=== PATIENT | male | born 1995 ===

== ENCOUNTER 2017-05-09 12:29 | Inpatient (IN) | payer OTHER ==
[2017-05-09] MEDS ORDERED: Sodium Chloride 0.9% 1,000 ML IV ONE (13:42)
[2017-05-09] MEDS ORDERED: Sodium Chloride 0.9% 1,000 ML ONE (14:02)
--- NOTE | 2017-05-09 14:03 | C.PDOC ---
History Of Present Illness 22 y/o male presents to ED c/o RUQ abdominal pain, nausea, and multiple episodes of vomiting since this morning. Pt reports last episode of vomiting had blood tinged vomitous. Denies diarrhea, constipation, dysuria, hematuria, fever, chest pain, or shortness of breath. Reports that 3 days ago he was started on antibiotics for pneumonia (augmentin) based on recent cough. Time Seen by Provider: 05/09/17 13:29 Chief Complaint (Nursing): GI Problem History Per: Patient History/Exam Limitations: no limitations Onset/Duration Of Symptoms: Hrs Current Symptoms Are (Timing): Still Present Location Of Pain/Discomfort: RUQ Radiation Of Pain To:: None Quality Of Discomfort: "Pain" Associated Symptoms: Nausea, Vomiting. denies: Diarrhea, Loss Of Appetite, Constipation, Urinary Symptoms Additional History Per: Patient Past Medical History Reviewed: Historical Data, Nursing Documentation, Vital Signs Vital Signs: Last Vital Signs Temp 99.3 F 05/09/17 12:34 Pulse 105 H 05/09/17 12:34 Resp 20 05/09/17 12:34 BP 115/77 05/09/17 12:34 Pulse Ox 96 05/09/17 16:29 Family History: States: Unknown Family Hx - Social History Hx Alcohol Use: No Hx Substance Use: No - Immunization History Hx Tetanus Toxoid Vaccination: No Hx Influenza Vaccination: No Hx Pneumococcal Vaccination: No Review Of Systems Except As Marked, All Systems Reviewed And Found Negative. Constitutional: Negative for: Fever, Chills Cardiovascular: Negative for: Chest Pain, Palpitations Respiratory: Positive for: Cough. Negative for: Shortness of Breath Gastrointestinal: Positive for: Nausea, Vomiting, Abdominal Pain. Negative for : Diarrhea, Constipation Physical Exam - Physical Exam Appears: Well, Non-toxic, No Acute Distress Skin: Normal Color, Warm, Dry Head: Atraumatic, Normacephalic Eye(s): bilateral: Normal Inspection Oral Mucosa: Moist Chest: Symmetrical Cardiovascular: Rhythm Regular, No Murmur Respiratory: No Rales, No Rhonchi, No Wheezing, Other (mildly decreased on R) Gastrointestinal/Abdominal: Soft, Tenderness (RUQ), No Guarding, No Rebound Back: No CVA Tenderness Extremity: Normal ROM, No Deformity Neurological/Psych: Oriented x3, Normal Speech ED Course And Treatment - Laboratory Results Result Diagrams: 05/09/17 13:53 05/09/17 13:53 O2 Sat by Pulse Oximetry: 96 Pulse Ox Interpretation: Normal Medical Decision Making Medical Decision Making: Blood work, UA, Abd & Pelvis CT, Cxray. Pt was given Pepcid, Toradol, Zofran, and IV fluids. FINDINGS: LOWER THORAX: There is multifocal consolidation in the right lower lobe. The visualized left lung is clear. LIVER: Normal in size with homogeneous enhancement. No gross lesion or ductal dilatation. GALLBLADDER AND BILE DUCTS: No calcified gallstones. PANCREAS: Normal in size and appearance. No gross lesion or ductal dilatation. SPLEEN: Normal in size and appearance. ADRENALS: No discrete nodule. KIDNEYS AND URETERS: Normal in size with homogeneous enhancement. No hydronephrosis. No solid mass. VASCULATURE: No aortic aneurysm. BOWEL: The small bowel loops are normal in caliber. There is moderate amount of stool in the colon. No bowel dilatation or obstruction. APPENDIX: Normal appendix. PERITONEUM: No free fluid. No free air. LYMPH NODES: No enlarged lymph nodes. BLADDER: Well distended and normal in appearance. REPRODUCTIVE: Unremarkable. BONES: No acute fracture. Within normal limits for the patient's age. OTHER FINDINGS: None. IMPRESSION: 1. No acute abdominal or pelvic abnormality. 2. Constipation. No evidence of bowel obstruction. 3. Multifocal right lower lobe pneumonia. PA and lateral chest radiographs are recommended for further evaluation. Cxray LUNGS: There is right upper lobe infiltrate with a central cavitary lesion. Followup CT scan recommended. Changes questionable patchy early infiltrate changes in the right lower lobe lung field and left perihilar/infrahilar regions. PLEURA: No significant pleural effusion identified. No pneumothorax apparent. CARDIOVASCULAR: Heart size within range of normal. OSSEOUS STRUCTURES: No mild scoliotic deformity of the thoracolumbar spine. VISUALIZED UPPER ABDOMEN: Normal. OTHER FINDINGS: None. IMPRESSION: Right upper lobe infiltrate with central cavitary lesion. There also appears to be some patchy early infiltrate. CT scan of the chest recommended for further evaluation. Findings discussed with emergency room physician Dr. Roca Approximately 4:30 p.m. with written down and read back verification. Patient immediately placed on droplet isolation. On reevaluation, patient reports an episode of hemoptysis in ED and shows me which is bloody with clots. Reports last travel outside [place] was 6 years ago. Reports that he was born in [facility]. Cannot identify if he has been evalauted for TB. WBC WNL. Lactate WNL. Quantiferon gold, ppd, sputum cultures, and rapid hiv ordered. Blood cx and antibiotics ordered for community acquired pneumonia coverage. Admit to hospitalist. Disposition - Disposition Disposition: HOSPITALIZED Disposition Time: 16:17 Condition: FAIR - Clinical Impression Clinical Impression: Cavitary lesion of lung, Hemoptysis, Pneumonia - Scribe Statement The provider has reviewed the documentation as recorded by the Anabell Ngo All medical record entries made by the Anabell were at my direction and personally dictated by me. I have reviewed the chart and agree that the record accurately reflects my personal performance of the history, physical exam, medical decision making, and the department course for this patient. I have also personally directed, reviewed, and agree with the discharge instructions and disposition.
[2017-05-09 14:06] LABS: INR 1.4; PROTHROMBIN TIME 15.3 SECONDS (9.7-12.2)
[2017-05-09 14:09] LABS: ALT/SGPT 45 U/L (21-72); AST/SGOT 27 U/L (17-59); BLOOD UREA NITROGEN 12 mg/dL (9-20); CALCIUM 8.4 mg/dl (8.6-10.4); GFR AFRICAN-AMERICAN > 60; GFR NON-AFRICAN AMERICAN > 60; LIPASE 25 U/L (23-300); MAGNESIUM 1.7 mg/dL (1.6-2.3)
[2017-05-09 14:14] LABS: ALB/GLOB RATIO 0.9 (1.0-2.1)
[2017-05-09 14:19] LABS: VENOUS BLOOD GAS PCO2 47 mmHg (40-60); VENOUS BLOOD GAS PO2 27 mm/Hg (30-55); VENOUS BLOOD PH 7.38 (7.32-7.43)
[2017-05-09 14:20] LABS: URINE BILIRUBIN NEGATIVE (NEGATIVE); URINE BLOOD NEGATIVE (NEGATIVE); URINE CLARITY Clear (Clear); URINE COLOR Yellow (YELLOW); URINE GLUCOSE (UA) NORMAL (Normal); URINE LEUKOCYTE ESTERASE NEG Leu/uL (Negative); URINE NITRATE NEGATIVE (NEGATIVE); URINE PROTEIN NEGATIVE (NEGATIVE)
[2017-05-09 14:25] LABS: BASO % 0.5 % (0.0-2.0); EOS # 0.1 K/uL (0.0-0.7); EOS % 0.9 % (0.0-4.0); HEMOGLOBIN 14.8 g/dL (12.0-18.0); LYMPH # 0.7 K/uL (1.0-4.3); LYMPH % 8.1 % (20.0-40.0); MEAN CELL VOLUME 85.5 fL (80.0-94.0); MEAN CORPUSCULAR HEMOGLOBIN 28.4 pg (27.0-31.0); MEAN CORPUSCULAR HGB CONC 33.2 g/dL (33.0-37.0); MEAN PLATELET VOLUME 7.5 fL (7.2-11.7); MONO # 0.9 K/uL (0.0-0.8); MONO % 10.1 % (0.0-10.0); NEUT # 7.2 K/uL (1.8-7.0); NEUT % 80.4 % (50.0-75.0); NRBC % 0.1 % (0.0-2.0); PLATELET COUNT 288 K/uL (130-400); RBC 5.21 Mil/uL (4.40-5.90); RED CELL DISTRIBUTION WIDTH 12.2 % (11.5-14.5)
[2017-05-09] MEDS ORDERED: Iodixanol 320 MG/ML 100 ML BOTTLE IV ONE (14:47)
[2017-05-09 14:56] LABS: EOSINOPHIL 1 % (0-4); LYMPHOCYTE 9 % (20-40); MONOCYTE 7 % (0-10); NEUTROPHIL 83 % (50-75); TOTAL CELLS COUNTED 100
[2017-05-09 14:57] LABS: PLATELET ESTIMATE NORMAL (NORMAL)
--- NOTE | 2017-05-09 15:43 | CT ---
PROCEDURE: CT Abdomen and Pelvis with contrast HISTORY: Abdominal pain and vomiting COMPARISON: None. TECHNIQUE: CT scan of the abdomen and pelvis was performed after intravenous administration of contrast. Oral contrast was not administered. Coronal and sagittal reformatted images were obtained. Contrast dose: 100 mL Visipaque 320 Radiation dose: Total exam DLP = 250.49 mGy-cm. This CT exam was performed using one or more of the following dose reduction techniques: Automated exposure control, adjustment of the mA and/or kV according to patient size, and/or use of iterative reconstruction technique. FINDINGS: LOWER THORAX: There is multifocal consolidation in the right lower lobe. The visualized left lung is clear. LIVER: Normal in size with homogeneous enhancement. No gross lesion or ductal dilatation. GALLBLADDER AND BILE DUCTS: No calcified gallstones. PANCREAS: Normal in size and appearance. No gross lesion or ductal dilatation. SPLEEN: Normal in size and appearance. ADRENALS: No discrete nodule. KIDNEYS AND URETERS: Normal in size with homogeneous enhancement. No hydronephrosis. No solid mass. VASCULATURE: No aortic aneurysm. BOWEL: The small bowel loops are normal in caliber. There is moderate amount of stool in the colon. No bowel dilatation or obstruction. APPENDIX: Normal appendix. PERITONEUM: No free fluid. No free air. LYMPH NODES: No enlarged lymph nodes. BLADDER: Well distended and normal in appearance. REPRODUCTIVE: Unremarkable. BONES: No acute fracture. Within normal limits for the patient's age. OTHER FINDINGS: None. IMPRESSION: 1. No acute abdominal or pelvic abnormality. 2. Constipation. No evidence of bowel obstruction. 3. Multifocal right lower lobe pneumonia. PA and lateral chest radiographs are recommended for further evaluation.
[2017-05-09] MEDS ORDERED: Azithromycin 500 MG in Sodium Chloride 0.9% 250 ML IVPB STA (16:06)
[2017-05-09] MEDS ORDERED: Tuberculin 5 Units/0.1 ml Inj ID STA (16:14)
--- NOTE | 2017-05-09 16:29 | RAD ---
HISTORY: pna seen on ct, recommended by radiologist COMPARISON: No prior. TECHNIQUE: Chest PA and lateral FINDINGS: LUNGS: There is right upper lobe infiltrate with a central cavitary lesion. Followup CT scan recommended. Changes questionable patchy early infiltrate changes in the right lower lobe lung field and left perihilar/infrahilar regions. PLEURA: No significant pleural effusion identified. No pneumothorax apparent. CARDIOVASCULAR: Heart size within range of normal. OSSEOUS STRUCTURES: No mild scoliotic deformity of the thoracolumbar spine. VISUALIZED UPPER ABDOMEN: Normal. OTHER FINDINGS: None. IMPRESSION: Right upper lobe infiltrate with central cavitary lesion. There also appears to be some patchy early infiltrate. CT scan of the chest recommended for further evaluation. Findings discussed with emergency room physician Dr. Roca Approximately 4:30 p.m. with written down and read back verification.
[2017-05-09] MEDS ORDERED: cefTRIAXone IV 1 gm in Dextros 50 ML IVPB ONE (16:30)
--- NOTE | 2017-05-09 17:30 | CP.PCM.HP ---
<Lennie WhittenChris - Last Filed: 05/09/17 19:00> History of Present Illness - History of Present Illness History of Present Illness: CC: abdominal pain, blood tinged vomit HPI: Patient is a 22 year old male with no past medical history, who presents to the ED with complaints of right upper quadrant pain and vomiting. Patient reports having 4 episodes of blood tinged vomit and right upper quadrant pain worse with cough for one day. Patient also states he has had a cough and chest pain (worse with coughing/deep respiration) for the past 15 days for which he saw his PMD, Dr. Nova, 3 days ago. Patient was given an unspecified antibiotic and pain killer, which did not help his symptoms. Patient reports he has noticed about 10lbs weight loss and right mid back pain over the last 15 days. Patient denies recent travel and sick contacts. Patient states his roommates have not recently been sick, had similar symptoms or recently traveled. Patient currently admits to fevers, palpitations, and back pain. Patient denies having chest pain, shortness of breath, abdominal pain, nausea, leg pain/swelling, and dysuria at this time. 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 absent: Fatigue, Headache, Lethargy, Weakness - EENT Eyes: absent: Change in Vision Nose/Mouth/Throat: absent: Dysphagia, Sore Throat - Cardiovascular Cardiovascular: Chest Pain (with cough and deep respirations), Palpitations. absent: Dyspnea, Lightheadedness - Respiratory Respiratory: Cough, Hemoptysis, Pain with Coughing (chest and RUQ abdomen ( below ribs)). absent: Dyspnea - Gastrointestinal Gastrointestinal: Abdominal Pain (RUQ), Hematemesis, Vomiting (4 episodes). absent: Constipation, Diarrhea, Nausea - Genitourinary Genitourinary: absent: Dysuria, Hematuria - Musculoskeletal Musculoskeletal: Back Pain (Right mid back, 15 days) - Integumentary Integumentary: absent: Rash - Neurological Neurological: absent: Dizziness, Headaches, Weakness - Endocrine Endocrine: Palpitations Past Patient History - Past Social History Smoking Status: Never Smoked - PSYCHIATRIC Hx Substance Use: No - SURGICAL HISTORY Hx Surgeries: No - ANESTHESIA Hx Anesthesia: No Hx Anesthesia Reactions: No Meds Allergies/Adverse Reactions: Allergies Allergy/AdvReac Type Severity Reaction Status Date / Time No Known Allergies Allergy Unverified 05/09/17 12:36 Physical Exam - Constitutional Appears: No Acute Distress - Head Exam Head Exam: ATRAUMATIC, NORMAL INSPECTION - Eye Exam Eye Exam: EOMI, Normal appearance, PERRL - ENT Exam ENT Exam: Mucous Membranes Moist - Respiratory Exam Respiratory Exam: Decreased Breath Sounds (R>L), NORMAL BREATHING PATTERN. absent: Rales, Rhonchi, Wheezes, Respiratory Distress - Cardiovascular Exam Cardiovascular Exam: REGULAR RHYTHM, +S1, +S2 - GI/Abdominal Exam GI & Abdominal Exam: Normal Bowel Sounds, Soft, Tenderness (mild, Right middle quadrant). absent: Distended, Firm, Guarding, Mass - Extremities Exam Extremities exam: Positive for: normal inspection, pedal pulses present. Negative for: pedal edema, tenderness Additional comments: PPD placed on left forearm - Neurological Exam Neurological exam: Alert, Oriented x3 - Psychiatric Exam Psychiatric exam: Normal Affect, Normal Mood - Skin Skin Exam: Dry, Intact, Normal Color, Warm Results - Vital Signs Recent Vital Signs: Last Vital Signs Temp 98.2 F 05/09/17 17:00 Pulse 84 05/09/17 17:00 Resp 18 05/09/17 17:00 BP 102/63 05/09/17 17:00 Pulse Ox 98 05/09/17 17:00 - Labs Result Diagrams: 05/09/17 13:53 05/09/17 13:53 Labs: Laboratory Results - last 24 hr 05/09/17 05/09/17 05/09/17 13:53 13:53 13:53 WBC 9.0 RBC 5.21 Hgb 14.8 Hct 44.5 MCV 85.5 MCH 28.4 MCHC 33.2 RDW 12.2 Plt Count 288 MPV 7.5 Neut % (Auto) 80.4 H Lymph % (Auto) 8.1 L [place] % (Auto) 10.1 H Eos % (Auto) 0.9 Baso % (Auto) 0.5 Neut # 7.2 H Lymph # 0.7 L [place] # 0.9 H Eos # 0.1 Baso # 0.0 Neutrophils % (Manual) 83 H Lymphocytes % (Manual) 9 L Monocytes % (Manual) 7 Eosinophils % (Manual) 1 Platelet Estimate Normal RBC Morphology Normal PT 15.3 H INR 1.4 APTT 31 pO2 VBG pH VBG pCO2 VBG HCO3 VBG Total CO2 VBG O2 Sat (Calc) VBG Base Excess VBG Potassium Glucose Lactate Sodium 135 Potassium 4.1 Chloride 98 Carbon Dioxide 32 H Anion Gap 9 L BUN 12 Creatinine 0.6 L Est GFR ( Amer) > 60 Est GFR (Non-Af Amer) > 60 Random Glucose 100 Calcium 8.4 L Phosphorus 3.8 Magnesium 1.7 Total Bilirubin 0.9 AST 27 ALT 45 Alkaline Phosphatase 86 Total Protein 8.5 H Albumin 4.0 Globulin 4.6 H Albumin/Globulin Ratio 0.9 L Lipase 25 Venous Blood Potassium Urine Color Urine Clarity Urine pH Ur Specific [place] Urine Protein Urine Glucose (UA) Urine Ketones Urine Blood Urine Nitrate Urine Bilirubin Urine Urobilinogen Ur Leukocyte Esterase Urine WBC (Auto) Urine RBC (Auto) 05/09/17 05/09/17 13:53 14:16 WBC RBC Hgb Hct MCV MCH MCHC RDW Plt Count MPV Neut % (Auto) Lymph % (Auto) [place] % (Auto) Eos % (Auto) Baso % (Auto) Neut # Lymph # [place] # Eos # Baso # Neutrophils % (Manual) Lymphocytes % (Manual) Monocytes % (Manual) Eosinophils % (Manual) Platelet Estimate RBC Morphology PT INR APTT pO2 27 L VBG pH 7.38 VBG pCO2 47 VBG HCO3 25.2 VBG Total CO2 29.2 H VBG O2 Sat (Calc) 61.1 VBG Base Excess 2.0 VBG Potassium 3.6 Glucose 95 Lactate 0.9 Sodium 136.0 Potassium Chloride 103.0 Carbon Dioxide Anion Gap BUN Creatinine Est GFR ( Amer) Est GFR (Non-Af Amer) Random Glucose Calcium Phosphorus Magnesium Total Bilirubin AST ALT Alkaline Phosphatase Total Protein Albumin Globulin Albumin/Globulin Ratio Lipase Venous Blood Potassium 3.6 Urine Color Yellow Urine Clarity Clear Urine pH 5.0 Ur Specific [place] 1.024 Urine Protein Negative Urine Glucose (UA) Normal Urine Ketones 1+ H Urine Blood Negative Urine Nitrate Negative Urine Bilirubin Negative Urine Urobilinogen 4.0 Ur Leukocyte Esterase Neg Urine WBC (Auto) 2 Urine RBC (Auto) 2 Assessment & Plan (1) Cavitary lesion of lung Assessment and Plan: Right upper lobe cavitary lesion * Likely secondary to TB * Placed on Airborne/Droplet Precautions * Chest xray: Right upper lobe infiltrate with central cavitary lesion; also appears to be some patchy early infiltrate. * Abdomen/Pelvis CT: No acute abdominal or pelvic abnormality; Constipation; No evidence of bowel obstruction; Multifocal right lower lobe pneumonia. * ID consulted, Dr. Espinoza, help appreciated * Pulmonology consulted, Dr. Pham, help appreciated * Gold Quantiferon: f/u results * PPD [place on left forearm]: f/u results * AFB cx and gram stainx7: f/u results * please enforce the following directions each morning to orthopaedic technologist: mucomyst + albuterol nebulizer treatment 30 minutes prior to sputum collection every morning. * AFB nucleic acid amplification: f/u results * handwritten order given to nurse on 5T * Sputum cx: f/u results * Blood cx: f/u results * Hepatitis panel: f/u results * f/u influenza, strep, legionella, mycoplasma * HIV1&2 screening: negative Medications: * Rocephin 1gm IV Q24h and Azithromycin 500mg IV Q24hr for infiltrate, likely pneumonia * Florastor 250mg PO daily Status: Acute (2) Prophylactic measure Assessment and Plan: SCDs; DVT risk score- 0, no anticoagulation needed at this time Pepcid 20mg PO daily Regular diet Morning labs: CBC w/diff, CMP, Mg, Phos, TSH, Free T4 Airborne/Droplet Precautions Status: Acute <Nik Ngo - Last Filed: 05/09/17 19:52> Results - Vital Signs Recent Vital Signs: Last Vital Signs Temp 99.1 F 05/09/17 17:38 Pulse 83 05/09/17 17:38 Resp 16 05/09/17 18:13 BP 103/64 05/09/17 17:38 Pulse Ox 99 05/09/17 17:38 - Labs Result Diagrams: 05/09/17 13:53 05/09/17 13:53 Labs: Laboratory Results - last 24 hr 05/09/17 05/09/17 05/09/17 13:53 13:53 13:53 WBC 9.0 RBC 5.21 Hgb 14.8 Hct 44.5 MCV 85.5 MCH 28.4 MCHC 33.2 RDW 12.2 Plt Count 288 MPV 7.5 Neut % (Auto) 80.4 H Lymph % (Auto) 8.1 L [place] % (Auto) 10.1 H Eos % (Auto) 0.9 Baso % (Auto) 0.5 Neut # 7.2 H Lymph # 0.7 L [place] # 0.9 H Eos # 0.1 Baso # 0.0 Neutrophils % (Manual) 83 H Lymphocytes % (Manual) 9 L Monocytes % (Manual) 7 Eosinophils % (Manual) 1 Platelet Estimate Normal RBC Morphology Normal PT 15.3 H INR 1.4 APTT 31 pO2 VBG pH VBG pCO2 VBG HCO3 VBG Total CO2 VBG O2 Sat (Calc) VBG Base Excess VBG Potassium Glucose Lactate Sodium 135 Potassium 4.1 Chloride 98 Carbon Dioxide 32 H Anion Gap 9 L BUN 12 Creatinine 0.6 L Est GFR ( Amer) > 60 Est GFR (Non-Af Amer) > 60 Random Glucose 100 Calcium 8.4 L Phosphorus 3.8 Magnesium 1.7 Total Bilirubin 0.9 AST 27 ALT 45 Alkaline Phosphatase 86 Total Protein 8.5 H Albumin 4.0 Globulin 4.6 H Albumin/Globulin Ratio 0.9 L Lipase 25 Venous Blood Potassium Urine Color Urine Clarity Urine pH Ur Specific [place] Urine Protein Urine Glucose (UA) Urine Ketones Urine Blood Urine Nitrate Urine Bilirubin Urine Urobilinogen Ur Leukocyte Esterase Urine WBC (Auto) Urine RBC (Auto) HIV 1&2 Antibody Screen 05/09/17 05/09/17 05/09/17 13:53 14:16 17:05 WBC RBC Hgb Hct MCV MCH MCHC RDW Plt Count MPV Neut % (Auto) Lymph % (Auto) [place] % (Auto) Eos % (Auto) Baso % (Auto) Neut # Lymph # [place] # Eos # Baso # Neutrophils % (Manual) Lymphocytes % (Manual) Monocytes % (Manual) Eosinophils % (Manual) Platelet Estimate RBC Morphology PT INR APTT pO2 27 L VBG pH 7.38 VBG pCO2 47 VBG HCO3 25.2 VBG Total CO2 29.2 H VBG O2 Sat (Calc) 61.1 VBG Base Excess 2.0 VBG Potassium 3.6 Glucose 95 Lactate 0.9 Sodium 136.0 Potassium Chloride 103.0 Carbon Dioxide Anion Gap BUN Creatinine Est GFR ( Amer) Est GFR (Non-Af Amer) Random Glucose Calcium Phosphorus Magnesium Total Bilirubin AST ALT Alkaline Phosphatase Total Protein Albumin Globulin Albumin/Globulin Ratio Lipase Venous Blood Potassium 3.6 Urine Color Yellow Urine Clarity Clear Urine pH 5.0 Ur Specific [place] 1.024 Urine Protein Negative Urine Glucose (UA) Normal Urine Ketones 1+ H Urine Blood Negative Urine Nitrate Negative Urine Bilirubin Negative Urine Urobilinogen 4.0 Ur Leukocyte Esterase Neg Urine WBC (Auto) 2 Urine RBC (Auto) 2 HIV 1&2 Antibody Screen Negative Attending/Attestation - Attestation I have personally seen and examined this patient.: Yes I have fully participated in the care of the patient.: Yes I have reviewed all pertinent clinical information: Yes Notes (Text): 05/09/17 19:51 Patient was seen and examined by me at 6 PM 05/09/17 555 P. History, Physical, Assessment and Plan, and all Orders were thoroughly gone over with the Resident. Nik Ngo D.O.
--- NOTE | 2017-05-09 19:55 | CP.PCM.CON ---
History of Present Illness - History of Present Illness History of Present Illness: nausea and vomiting by history with probable aspiration and development of cavitary pneumonia, r/o lung abscess after review of CXR will obtain CT Chest agree with work up for TB If review of CT Chest reveals lung abscess then would consult CT Surgery. Add anaerobic coverage Review of Systems - Constitutional Constitutional: Anorexia - Respiratory Respiratory: Cough, Hemoptysis Past Patient History - Past Medical History & Family History Past Medical History?: No - Past Social History Smoking Status: Never Smoked - CARDIAC Hx Cardiac Disorders: No - PULMONARY Hx Respiratory Disorders: No - NEUROLOGICAL Hx Neurological Disorder: No - HEENT Hx HEENT Problems: No - RENAL Hx Chronic Kidney Disease: No - ENDOCRINE/METABOLIC Hx Endocrine Disorders: No - HEMATOLOGICAL/ONCOLOGICAL Hx Blood Disorders: No - INTEGUMENTARY Hx Dermatological Problems: No - MUSCULOSKELETAL/RHEUMATOLOGICAL Hx Musculoskeletal Disorders: No Hx Falls: No - GASTROINTESTINAL Hx Gastrointestinal Disorders: No - GENITOURINARY/GYNECOLOGICAL Hx Genitourinary Disorders: No - PSYCHIATRIC Hx Substance Use: No - SURGICAL HISTORY Hx Surgeries: No - ANESTHESIA Hx Anesthesia: No Hx Anesthesia Reactions: No Meds Allergies/Adverse Reactions: Allergies Allergy/AdvReac Type Severity Reaction Status Date / Time No Known Allergies Allergy Unverified 05/09/17 12:36 - Medications Medications: Current Medications Acetaminophen (Tylenol 325mg Tab) 650 mg PO Q6 PRN PRN Reason: Pain, Mild (1-3) Famotidine (Pepcid) 20 mg PO DAILY [facility] Azithromycin 500 mg/ Sodium (Chloride) 250 mls @ 250 mls/hr IVPB DAILY [facility] Ceftriaxone Sodium 1 gm/ (Sodium Chloride) 100 mls @ 100 mls/hr IVPB DAILY [facility] Saccharomyces Boulardii (Florastor) 250 mg PO DAILY [facility] Physical Exam - Constitutional Appears: No Acute Distress - Head Exam Head Exam: ATRAUMATIC, NORMOCEPHALIC - Eye Exam Eye Exam: Normal appearance - ENT Exam ENT Exam: Mucous Membranes Moist - Respiratory Exam Respiratory Exam: Decreased Breath Sounds, Rales, Rhonchi - Cardiovascular Exam Cardiovascular Exam: REGULAR RHYTHM, +S1, +S2 - GI/Abdominal Exam GI & Abdominal Exam: Normal Bowel Sounds - Rectal Exam Rectal Exam: Deferred - Neurological Exam Neurological exam: Alert, Oriented x3 - Psychiatric Exam Psychiatric exam: Normal Affect, Normal Mood - Skin Skin Exam: Intact Results - Vital Signs Recent Vital Signs: Last Vital Signs Temp 99.1 F 05/09/17 17:38 Pulse 83 05/09/17 17:38 Resp 16 05/09/17 18:13 BP 103/64 05/09/17 17:38 Pulse Ox 99 05/09/17 17:38 - Labs Result Diagrams: 05/12/17 07:30 05/12/17 07:30 Labs: Laboratory Results - last 24 hr 05/09/17 05/09/17 05/09/17 13:53 13:53 13:53 WBC 9.0 RBC 5.21 Hgb 14.8 Hct 44.5 MCV 85.5 MCH 28.4 MCHC 33.2 RDW 12.2 Plt Count 288 MPV 7.5 Neut % (Auto) 80.4 H Lymph % (Auto) 8.1 L [place] % (Auto) 10.1 H Eos % (Auto) 0.9 Baso % (Auto) 0.5 Neut # 7.2 H Lymph # 0.7 L [place] # 0.9 H Eos # 0.1 Baso # 0.0 Neutrophils % (Manual) 83 H Lymphocytes % (Manual) 9 L Monocytes % (Manual) 7 Eosinophils % (Manual) 1 Platelet Estimate Normal RBC Morphology Normal PT 15.3 H INR 1.4 APTT 31 pO2 VBG pH VBG pCO2 VBG HCO3 VBG Total CO2 VBG O2 Sat (Calc) VBG Base Excess VBG Potassium Glucose Lactate Sodium 135 Potassium 4.1 Chloride 98 Carbon Dioxide 32 H Anion Gap 9 L BUN 12 Creatinine 0.6 L Est GFR ( Amer) > 60 Est GFR (Non-Af Amer) > 60 Random Glucose 100 Calcium 8.4 L Phosphorus 3.8 Magnesium 1.7 Total Bilirubin 0.9 AST 27 ALT 45 Alkaline Phosphatase 86 Total Protein 8.5 H Albumin 4.0 Globulin 4.6 H Albumin/Globulin Ratio 0.9 L Lipase 25 Venous Blood Potassium Urine Color Urine Clarity Urine pH Ur Specific [place] Urine Protein Urine Glucose (UA) Urine Ketones Urine Blood Urine Nitrate Urine Bilirubin Urine Urobilinogen Ur Leukocyte Esterase Urine WBC (Auto) Urine RBC (Auto) HIV 1&2 Antibody Screen 05/09/17 05/09/17 05/09/17 13:53 14:16 17:05 WBC RBC Hgb Hct MCV MCH MCHC RDW Plt Count MPV Neut % (Auto) Lymph % (Auto) [place] % (Auto) Eos % (Auto) Baso % (Auto) Neut # Lymph # [place] # Eos # Baso # Neutrophils % (Manual) Lymphocytes % (Manual) Monocytes % (Manual) Eosinophils % (Manual) Platelet Estimate RBC Morphology PT INR APTT pO2 27 L VBG pH 7.38 VBG pCO2 47 VBG HCO3 25.2 VBG Total CO2 29.2 H VBG O2 Sat (Calc) 61.1 VBG Base Excess 2.0 VBG Potassium 3.6 Glucose 95 Lactate 0.9 Sodium 136.0 Potassium Chloride 103.0 Carbon Dioxide Anion Gap BUN Creatinine Est GFR ( Amer) Est GFR (Non-Af Amer) Random Glucose Calcium Phosphorus Magnesium Total Bilirubin AST ALT Alkaline Phosphatase Total Protein Albumin Globulin Albumin/Globulin Ratio Lipase Venous Blood Potassium 3.6 Urine Color Yellow Urine Clarity Clear Urine pH 5.0 Ur Specific [place] 1.024 Urine Protein Negative Urine Glucose (UA) Normal Urine Ketones 1+ H Urine Blood Negative Urine Nitrate Negative Urine Bilirubin Negative Urine Urobilinogen 4.0 Ur Leukocyte Esterase Neg Urine WBC (Auto) 2 Urine RBC (Auto) 2 HIV 1&2 Antibody Screen Negative Assessment & Plan (1) Cavitary pneumonia Status: Acute Comment: tb work up in progress (2) Lung abscess Status: Suspected Comment: add clinda
[2017-05-09 20:49] LABS: HEPATITIS B SURFACE AG NEGATIVE (NEGATIVE)
[2017-05-09 20:55] LABS: HEPATITIS A IGM NEGATIVE (NEGATIVE); HEPATITIS B CORE AB Negative (NEGATIVE)
[2017-05-09 21:07] LABS: HEPATITIS C ANTIBODY Negative (NEGATIVE)
[2017-05-10] MEDS ORDERED: Albuterol 0.083% Inhal Sol (2.5 mg/3 mL) UD INH PRN (06:00)
[2017-05-10] MEDS ORDERED: Acetylcysteine 20% Inhal Soln (4ml) INH PRN (06:00)
[2017-05-10 08:20] LABS: BASO # 0.1 K/uL (0.0-0.2); BASO % 0.5 % (0.0-2.0); EOS # 0.1 K/uL (0.0-0.7); EOS % 0.6 % (0.0-4.0); LYMPH # 0.5 K/uL (1.0-4.3); LYMPH % 4.8 % (20.0-40.0); MEAN CELL VOLUME 84.7 fL (80.0-94.0); MEAN CORPUSCULAR HEMOGLOBIN 28.9 pg (27.0-31.0); MEAN CORPUSCULAR HGB CONC 34.1 g/dL (33.0-37.0); MEAN PLATELET VOLUME 7.7 fL (7.2-11.7); MONO # 0.8 K/uL (0.0-0.8); MONO % 6.9 % (0.0-10.0); NEUT # 9.5 K/uL (1.8-7.0); NEUT % 87.2 % (50.0-75.0); PLATELET COUNT 289 K/uL (130-400); RBC 4.85 Mil/uL (4.40-5.90); RED CELL DISTRIBUTION WIDTH 12.3 % (11.5-14.5); WHITE BLOOD COUNT 10.9 K/uL (4.8-10.8)
[2017-05-10 08:44] LABS: ALB/GLOB RATIO 1.2 (1.0-2.1); ALBUMIN 3.6 g/dL (3.5-5.0); ALT/SGPT 45 U/L (21-72); AST/SGOT 25 U/L (17-59); BLOOD UREA NITROGEN 12 mg/dL (9-20); CALCIUM 7.9 mg/dl (8.6-10.4); GFR AFRICAN-AMERICAN > 60; GFR NON-AFRICAN AMERICAN > 60; MAGNESIUM 1.7 mg/dL (1.6-2.3)
[2017-05-10 09:31] LABS: EOSINOPHIL 1 % (0-4); LYMPHOCYTE 6 % (20-40); MONOCYTE 3 % (0-10); NEUTROPHIL 90 % (50-75); PLATELET ESTIMATE NORMAL (NORMAL); TOTAL CELLS COUNTED 100
[2017-05-10] MEDS: Saccharomyces Boulardi 250 mg Cap PO SCH (09:58)
[2017-05-10] MEDS ORDERED: Azithromycin 500 MG in Sodium Chloride 0.9% 250 ML IVPB SCH (10:00)
--- NOTE | 2017-05-10 10:16 | CT ---
CT chest History: Cavitary pneumonia. Comparison: 05/09/2017 Technique: Multiple contiguous axial images were performed through the chest without the use of intravenous contrast. Subsequently, sagittal and coronal reformatted images were obtained. This CT exam was performed using one or more of the following dose reduction techniques: Automated exposure control, adjustment of the mA and/or kV according to patient size, and/or use of iterative reconstruction technique. Findings: Large area of dense consolidation seen throughout a large portion of the mid to posterior aspect of the right upper lobe with associated prominent air bronchograms. In addition, at the superior aspect of the consolidation, there are large areas of central cavitation measuring up to 2.8 and 1.5 centimeters. This is concerning for a cavitary pneumonia. Additional etiologies not excluded. Continued interval imaging follow-up is recommended if clinically indicated. Additional prominent areas of scattered consolidative changes as well as scattered areas of tree-in-bud opacities seen within the right middle and right lower lobes. More focal consolidative changes seen within posterior and medial aspects of the right lower lobe. These are concerning for acute infectious and or inflammatory changes such as a multifocal pneumonia. Continued interval follow-up is recommended. 1 centimeter focal area of nodular consolidation within the lateral aspect the left lung apex on series 3, image 28. Additional scattered areas of consolidative changes seen within the mid to inferior aspect of the left upper lobe measuring up to 1 centimeters on series 3, image 60 and up to 2.1 centimeters on series 3, image 60. Additional smaller areas of nodular consolidation more inferiorly within the left upper lobe. These are also concerning for acute infectious and or inflammatory changes such as a multifocal pneumonia. Clinical correlation. Trachea thru central airways are patent. No significant axillary adenopathy. Thyroid gland is preserved. Shotty pre-vascular lymph nodes measure up to 1 centimeter. Limited evaluation for hilar adenopathy without contrast. Left paratracheal lymph nodes measure up to 1.2 centimeters. No pleural or pericardial effusion. Degenerative changes in the spine. Fecal retention in the colon. Impression: 1. Large area of dense consolidation seen throughout a large portion of the mid to posterior aspect of the right upper lobe with associated prominent air bronchograms. In addition, at the superior aspect of the consolidation, there are large areas of central cavitation measuring up to 2.8 and 1.5 centimeters. This is concerning for a cavitary pneumonia. Additional etiologies not excluded. Continued interval imaging follow-up is recommended if clinically indicated. 2. Additional prominent areas of scattered consolidative changes as well as scattered areas of tree-in-bud opacities seen within the right middle and right lower lobes. More focal consolidative changes seen within posterior and medial aspects of the right lower lobe. These are concerning for acute infectious and or inflammatory changes such as a multifocal pneumonia. Continued interval follow-up is recommended. 3. 1 centimeter focal area of nodular consolidation within the lateral aspect the left lung apex on series 3, image 28. Additional scattered areas of consolidative changes seen within the mid to inferior aspect of the left upper lobe measuring up to 1 centimeters on series 3, image 60 and up to 2.1 centimeters on series 3, image 60. Additional smaller areas of nodular consolidation more inferiorly within the left upper lobe. These are also concerning for acute infectious and or inflammatory changes such as a multifocal pneumonia. Clinical correlation. 4. Left paratracheal lymph nodes measure up to 1.2 centimeters.
--- NOTE | 2017-05-10 10:21 | CP.PCM.PN ---
<Merari Torrez - Last Filed: 05/10/17 19:49> Subjective - Date & Time of Evaluation Date of Evaluation: 05/10/17 Time of Evaluation: 10:24 - Subjective Subjective: Progress note Patient seen and examined at bedside. Patient had a fever overnight of 102.9. Tylenol was given. Patient states he's still coughing blood with sputum, but is not as bad as yesterday. Patient states he felt fever overnight. Patient denies chest pain, shortness of breath, abdominal pain, nausea, difficulty walking, dysuria, constipation, diarrhea. Objective - Vital Signs/Intake and Output Vital Signs (last 24 hours): Temp Pulse Resp BP Pulse Ox 99.4 F 111 H 20 107/64 90 L 05/10/17 08:05 05/10/17 07:45 05/10/17 07:45 05/10/17 07:45 05/10/17 07:45 Intake and Output: 05/10/17 05/10/17 06:59 18:59 Intake Total 120 Output Total 60 Balance 60 - Medications Medications: Current Medications Acetaminophen (Tylenol 325mg Tab) 650 mg PO Q6 PRN PRN Reason: Fever >100.4 F Last Admin: 05/10/17 07:05 Dose: 650 mg Acetylcysteine (Acetylcysteine 20%) 4 ml INH RQD PRN Albuterol Sulfate (Albuterol 0.083% Inhal Tanesha (2.5 Mg/3 Ml) Ud) 2.5 mg INH RQD PRN Famotidine (Pepcid) 20 mg PO DAILY [facility] Azithromycin 500 mg/ Sodium (Chloride) 250 mls @ 250 mls/hr IVPB DAILY [facility] Ceftriaxone Sodium 1 gm/ (Sodium Chloride) 100 mls @ 100 mls/hr IVPB DAILY [facility] Saccharomyces Boulardii (Florastor) 250 mg PO DAILY [facility] Last Admin: 05/10/17 09:58 Dose: 250 mg - Labs Labs: 05/10/17 08:00 05/10/17 08:00 PT 15.3 SECONDS (9.7-12.2) H 05/09/17 13:53 INR 1.4 05/09/17 13:53 APTT 31 SECONDS (21-34) 05/09/17 13:53 - Constitutional Appears: Non-toxic, No Acute Distress - Head Exam Head Exam: NORMAL INSPECTION - Eye Exam Eye Exam: EOMI, Normal appearance Pupil Exam: NORMAL ACCOMODATION - ENT Exam ENT Exam: Mucous Membranes Moist, Normal Exam - Neck Exam Neck Exam: Full ROM. absent: Tenderness - Respiratory Exam Respiratory Exam: NORMAL BREATHING PATTERN. absent: Accessory Muscle Use - Cardiovascular Exam Cardiovascular Exam: REGULAR RHYTHM, +S1, +S2. absent: Bradycardia, Tachycardia - GI/Abdominal Exam GI & Abdominal Exam: Soft, Normal Bowel Sounds. absent: Tenderness - Extremities Exam Extremities Exam: Full ROM, Normal Inspection. absent: Pedal Edema - Neurological Exam Neurological Exam: Alert, Awake, Oriented x3 - Psychiatric Exam Psychiatric exam: Normal Affect, Normal Mood Assessment and Plan - Assessment and Plan (Free Text) Assessment: Assessment & Plan (1) Cavitary lesion of lung Assessment and Plan: Right upper lobe cavitary lesion * Likely secondary to TB * Placed on Airborne/Droplet Precautions * Chest xray: Right upper lobe infiltrate with central cavitary lesion; also appears to be some patchy early infiltrate. * Abdomen/Pelvis CT: No acute abdominal or pelvic abnormality; Constipation; No evidence of bowel obstruction; Multifocal right lower lobe pneumonia. * ID consulted, Dr. Espinoza, help appreciated * Pulmonology consult Dr. Pham: with probable aspiration and development of cavitary pneumonia. CT chest obtained after CXR review. continue workup for TB and if lung abscess is found on CT chest, consult CT surgery. Suggestion to add anaerobic coverage. 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 * AFB nucleic acid amplification: f/u results * handwritten order given to nurse on 5T * Sputum cx: f/u results * Blood cx: f/u results * Hepatitis panel: * Hep C negative * Hep B core IgM ab negative * Hep Bs Antigen negative * hepatitis A IgM ab negative * influenza, strep, legionella, mycoplasma * Urine L pneumonia Ag negative * Mycoplasma pneumonia IgM negative * HIV1&2 screening: negative 05/[address]: large area of dense consolidation seen throughout a large portion of mid to posterior aspect of right upper lobe with associated prominent air bronchograms. additional prominent areas of scattered consolidative changes and scattered areas of tree-in-bud opacities seen in right middle and lower lobes. concern for acute infectious and inflammatory changes suggestive of multifocal pneumonia. 1cm focal area of nodular consolidation in lateral aspect of left lung apex ( series 3, image 28) with scattered areas of consolidative changes seen within mid to inferior aspect of left upper lobe measuring 1cm on series 3, image 60 up to 2.1 cm on series 3 image 60. concerning for multifocal pneumonia. left paratracheal lymph nodes 1.2 cm Medications: * Rocephin 1gm IV Q24h and Azithromycin 500mg IV Q24hr for infiltrate, likely pneumonia * Florastor 250mg PO daily Status: Acute (2) tachycardia likely due to infection, patient is hypotensive and has a fever of 103, [address] Danielle Ngo and this resident were not notified during the day. Patient is on IVF NS @ 150 cc/hr Tylenol Q6H [facility] for 24 hours monitor vitals (3) Prophylaxis Assessment and Plan: SCDs; DVT risk score- 0, no anticoagulation needed at this time Pepcid 20mg PO daily Regular diet Morning labs: CBC w/diff, CMP, Mg, Phos, TSH, Free T4 Airborne/Droplet Precautions Status: Acute <Nik Ngo - Last Filed: 05/10/17 20:25> Objective - Vital Signs/Intake and Output Vital Signs (last 24 hours): Temp Pulse Resp BP Pulse Ox 100.6 F H 116 H 18 91/54 L 96 05/10/17 15:52 05/10/17 15:52 05/10/17 15:52 05/10/17 15:52 05/10/17 15:52 Intake and Output: 05/10/17 05/11/17 18:59 06:59 Intake Total 830 120 Balance 830 120 - Medications Medications: Current Medications Acetaminophen (Tylenol 325mg Tab) 650 mg PO Q6 [facility] Stop: 05/11/17 20:00 Last Admin: 05/10/17 20:09 Dose: 650 mg Acetylcysteine (Acetylcysteine 20%) 4 ml INH RQD PRN Albuterol Sulfate (Albuterol 0.083% Inhal Tanesha (2.5 Mg/3 Ml) Ud) 2.5 mg INH RQD PRN Famotidine (Pepcid) 20 mg PO DAILY [facility] Azithromycin 500 mg/ Sodium (Chloride) 250 mls @ 250 mls/hr IVPB DAILY@1800 [facility] Last Admin: 05/10/17 17:46 Dose: 250 mls/hr Ceftriaxone Sodium 1 gm/ (Sodium Chloride) 100 mls @ 100 mls/hr IVPB DAILY@ 1700 [facility] Last Admin: 05/10/17 16:33 Dose: 100 mls/hr Sodium Chloride (Sodium Chloride 0.9%) 1,000 mls @ 100 mls/hr IV .Q10H [facility] Last Admin: 05/10/17 20:08 Dose: 100 mls/hr Saccharomyces Boulardii (Florastor) 250 mg PO DAILY [facility] Last Admin: 05/10/17 09:58 Dose: 250 mg - Labs Labs: 05/10/17 08:00 05/10/17 08:00 PT 15.3 SECONDS (9.7-12.2) H 05/09/17 13:53 INR 1.4 05/09/17 13:53 APTT 31 SECONDS (21-34) 05/09/17 13:53 Attending/Attestation - Attestation I have personally seen and examined this patient.: Yes I have fully participated in the care of the patient.: Yes I have reviewed all pertinent clinical information, including history, physical exam and plan: Yes Notes (Text): 05/10/17 20:25 Patient was seen and examined with the resident who translated in Slovak. Exam, assessment and plan were thoroughly gone over with the resident. Nik Ngo D.O.
[2017-05-10] MEDS: Azithromycin 500 MG in Sodium Chloride 0.9% 250 ML IVPB SCH (17:46)
[2017-05-10] MEDS: Sodium Chloride 0.9% 1,000 ML IV SCH (20:08)
[2017-05-11] MEDS: Sodium Chloride 0.9% 1,000 ML IV SCH ×2 (05:51→15:36)
[2017-05-11 07:28] LABS: BASO % 0.5 % (0.0-2.0); EOS # 0.1 K/uL (0.0-0.7); EOS % 1.2 % (0.0-4.0); HEMOGLOBIN 13.1 g/dL (12.0-18.0); LYMPH # 0.8 K/uL (1.0-4.3); LYMPH % 8.8 % (20.0-40.0); MEAN CELL VOLUME 84.5 fL (80.0-94.0); MEAN CORPUSCULAR HEMOGLOBIN 29.1 pg (27.0-31.0); MEAN CORPUSCULAR HGB CONC 34.4 g/dL (33.0-37.0); MEAN PLATELET VOLUME 7.6 fL (7.2-11.7); MONO # 0.8 K/uL (0.0-0.8); MONO % 8.9 % (0.0-10.0); NEUT # 7.4 K/uL (1.8-7.0); NEUT % 80.6 % (50.0-75.0); PLATELET COUNT 282 K/uL (130-400); RBC 4.49 Mil/uL (4.40-5.90); RED CELL DISTRIBUTION WIDTH 12.2 % (11.5-14.5); WHITE BLOOD COUNT 9.2 K/uL (4.8-10.8)
[2017-05-11 08:18] LABS: ALB/GLOB RATIO 1.2 (1.0-2.1); ALBUMIN 3.3 g/dL (3.5-5.0); ALT/SGPT 41 U/L (21-72); AST/SGOT 32 U/L (17-59); BLOOD UREA NITROGEN 8 mg/dL (9-20); CALCIUM 7.5 mg/dl (8.6-10.4); GFR AFRICAN-AMERICAN > 60; GFR NON-AFRICAN AMERICAN > 60
--- NOTE | 2017-05-11 08:25 | CP.PCM.PN ---
<Merari Torrez - Last Filed: 05/11/17 13:37> Subjective - Date & Time of Evaluation Date of Evaluation: 05/11/17 Time of Evaluation: 12:36 - Subjective Subjective: Progress note for Dr. Ngo Patient seen and examined at bedside. Patient explained RIPE therapy and that his PPD test was positive at 25mm induration. Patient stated he had black bowel movements yesterday for the first time. Explained to patient the side effects of RIPE therapy. Patient gave his second and third sputum sample today. Noted nausea and difficulty eating because of the blood. Patient states he has some pain in the back of his head. Objective - Vital Signs/Intake and Output Vital Signs (last 24 hours): Temp Pulse Resp BP Pulse Ox 102.5 F H 95 H 20 102/62 94 L 05/11/17 05:47 05/11/17 00:00 05/11/17 00:00 05/11/17 00:00 05/11/17 00:00 Intake and Output: 05/11/17 05/11/17 06:59 18:59 Intake Total 490 Balance 490 - Medications Medications: Current Medications Acetaminophen (Tylenol 325mg Tab) 650 mg PO Q6 [facility] Stop: 05/11/17 20:00 Last Admin: 05/11/17 05:47 Dose: 650 mg Acetylcysteine (Acetylcysteine 20%) 4 ml INH RQD PRN Albuterol Sulfate (Albuterol 0.083% Inhal Tanesha (2.5 Mg/3 Ml) Ud) 2.5 mg INH RQD PRN Famotidine (Pepcid) 20 mg PO DAILY [facility] Last Admin: 05/10/17 09:58 Dose: 20 mg Azithromycin 500 mg/ Sodium (Chloride) 250 mls @ 250 mls/hr IVPB DAILY@1800 [facility] Last Admin: 05/10/17 17:46 Dose: 250 mls/hr Ceftriaxone Sodium 1 gm/ (Sodium Chloride) 100 mls @ 100 mls/hr IVPB DAILY@ 1700 [facility] Last Admin: 05/10/17 16:33 Dose: 100 mls/hr Sodium Chloride (Sodium Chloride 0.9%) 1,000 mls @ 100 mls/hr IV .Q10H [facility] Last Admin: 05/11/17 05:51 Dose: 100 mls/hr Saccharomyces Boulardii (Florastor) 250 mg PO DAILY [facility] Last Admin: 05/10/17 09:58 Dose: 250 mg - Labs Labs: 05/11/17 07:12 05/11/17 07:12 PT 15.3 SECONDS (9.7-12.2) H 05/09/17 13:53 INR 1.4 05/09/17 13:53 APTT 31 SECONDS (21-34) 05/09/17 13:53 - Constitutional Appears: No Acute Distress - Head Exam Head Exam: NORMAL INSPECTION, NORMOCEPHALIC - Eye Exam Eye Exam: EOMI - ENT Exam ENT Exam: Mucous Membranes Moist. absent: Mucous Membranes Dry - Neck Exam Neck Exam: Full ROM. absent: Tenderness, Thyromegaly - Respiratory Exam Respiratory Exam: Decreased Breath Sounds (on right side), NORMAL BREATHING PATTERN. absent: Accessory Muscle Use, Chest Wall Tenderness, Rhonchi, Wheezes - Cardiovascular Exam Cardiovascular Exam: REGULAR RHYTHM, +S1, +S2 - GI/Abdominal Exam GI & Abdominal Exam: Soft, Normal Bowel Sounds. absent: Tenderness - Extremities Exam Extremities Exam: Full ROM, Normal Inspection. absent: Pedal Edema - Neurological Exam Neurological Exam: Alert, Awake - Psychiatric Exam Psychiatric exam: Normal Affect, Normal Mood - Skin Skin Exam: Dry, Intact, Normal Color, Warm Assessment and Plan - Assessment and Plan (Free Text) Assessment: (1) Cavitary lesion of lung Assessment and Plan: Right upper lobe cavitary lesion * Likely secondary to TB * Placed on Airborne/Droplet Precautions * Chest xray: Right upper lobe infiltrate with central cavitary lesion; also appears to be some patchy early infiltrate. * Abdomen/Pelvis CT: No acute abdominal or pelvic abnormality; Constipation; No evidence of bowel obstruction; Multifocal right lower lobe pneumonia. * ID consulted, Dr. Espinoza, help appreciated * Pulmonology consult Dr. Pham: with probable aspiration and development of cavitary pneumonia. CT chest obtained after CXR review. continue workup for TB and if lung abscess is found on CT chest, consult CT surgery. Suggestion to add anaerobic coverage. * Gold Quantiferon: f/u results * PPD [place on left forearm]: f/u results 05/11 at 17:00 * 25mm induration (PPD test positive) * AFB cx and gram stainx7: f/u results * please enforce the following directions each morning to heat treat technician: mucomyst + albuterol nebulizer treatment 30 minutes prior to sputum collection every morning. * AFB nucleic acid amplification: * Confirmed that all three samples: 05/10 (1 sample), 05/11 (2 samples) were sent for nucleic acid amplification, Merari Torrez DO PGY1 on 05/11/17 * handwritten order given to nurse on 5T * Sputum cx: f/u results * 05/09 sputum sample shows gram negative rods, f/u final read * Blood cx: f/u results * Hepatitis panel: * Hep C negative * Hep B core IgM ab negative * Hep Bs Antigen negative * hepatitis A IgM ab negative * influenza, strep, legionella, mycoplasma * Urine L pneumonia Ag negative * Mycoplasma pneumonia IgM negative * HIV1&2 screening: negative 05/[address]: large area of dense consolidation seen throughout a large portion of mid to posterior aspect of right upper lobe with associated prominent air bronchograms. additional prominent areas of scattered consolidative changes and scattered areas of tree-in-bud opacities seen in right middle and lower lobes. concern for acute infectious and inflammatory changes suggestive of multifocal pneumonia. 1cm focal area of nodular consolidation in lateral aspect of left lung apex ( series 3, image 28) with scattered areas of consolidative changes seen within mid to inferior aspect of left upper lobe measuring 1cm on series 3, image 60 up to 2.1 cm on series 3 image 60. concerning for multifocal pneumonia. left paratracheal lymph nodes 1.2 cm Medications: * Rocephin 1gm IV Q24h and Azithromycin 500mg IV Q24hr for infiltrate, likely pneumonia * Florastor 250mg PO daily * 05/11 RIPE (TB) therapy started: Rifampin 600mg PO QD, Isoniazid 300mg PO QD, Pyrazinamide [id number] PO QD (per pharmacy), Ethambutol 400mg PO TID, Vitamin B6 ( pyradoxine) 50mg PO QD. Status: Acute (2) Tachycardia likely due to infection, patient is hypotensive and has a fever of 103, [address] Danielle Ngo and this resident were not notified during the day. Patient is on IVF NS @ 150 cc/hr Tylenol Q6H TRISHA for 24 hours monitor vitals (3) Tarry stool 05/11 f/u fecal occult blood test (4) Prophylaxis Assessment and Plan: SCDs; DVT risk score- 0, no anticoagulation needed at this time Pepcid 20mg PO daily Regular diet Morning labs: CBC w/diff, CMP, Mg, Phos, TSH, Free T4 Airborne/Droplet Precautions Status: Acute Dispo: 05/11 it was explained to the patient that RIPE (TB) therapy is to begin today. PDD test is positive which indicates tuberculosis. We are waiting on nucleic acid amplication test to come back. Patient explained the side effects of the new medications that he's starting today. Dr. Nik Torrez, DO PGY1 <Nik Ngo - Last Filed: 05/11/17 18:47> Objective - Vital Signs/Intake and Output Vital Signs (last 24 hours): Temp Pulse Resp BP Pulse Ox 98.2 F 98 H 20 102/66 98 05/11/17 15:55 05/11/17 15:55 05/11/17 15:55 05/11/17 15:55 05/11/17 15:55 Intake and Output: 05/11/17 05/11/17 06:59 18:59 Intake Total 490 1750 Balance 490 1750 - Medications Medications: Current Medications Acetaminophen (Tylenol 325mg Tab) 650 mg PO Q6 [facility] Stop: 05/12/17 20:00 Last Admin: 05/11/17 17:58 Dose: 650 mg Acetylcysteine (Acetylcysteine 20%) 4 ml INH RQD PRN Albuterol Sulfate (Albuterol 0.083% Inhal Tanesha (2.5 Mg/3 Ml) Ud) 2.5 mg INH RQD PRN Ethambutol HCl (Myambutol) 400 mg PO TID [facility] Last Admin: 05/11/17 17:58 Dose: 400 mg Famotidine (Pepcid) 20 mg PO DAILY [facility] Last Admin: 05/11/17 09:42 Dose: 20 mg Sodium Chloride (Sodium Chloride 0.9%) 1,000 mls @ 100 mls/hr IV .Q10H [facility] Last Admin: 05/11/17 15:36 Dose: 100 mls/hr Imipenem/Cilastatin Sodium 500 (mg/ Dextrose) 100 mls @ 100 mls/hr IVPB Q6H [facility] Isoniazid (Niazid) 300 mg PO DAILY [facility] Last Admin: 05/11/17 09:40 Dose: 300 mg Pyrazinamide (Pyrazinamide) 1,500 mg PO DAILY [facility] Last Admin: 05/11/17 09:41 Dose: 1,500 mg Pyridoxine HCl (Vitamin B6 50 Mg Tab) 50 mg PO DAILY [facility] Last Admin: 05/11/17 09:40 Dose: 50 mg Rifampin (Rifampin Cap) 600 mg PO DAILY [facility] Last Admin: 05/11/17 09:40 Dose: 600 mg Saccharomyces Boulardii (Florastor) 250 mg PO DAILY [facility] Last Admin: 05/11/17 09:41 Dose: 250 mg - Labs Labs: 05/11/17 07:12 05/11/17 07:12 PT 15.3 SECONDS (9.7-12.2) H 05/09/17 13:53 INR 1.4 05/09/17 13:53 APTT 31 SECONDS (21-34) 05/09/17 13:53 Attending/Attestation - Attestation I have personally seen and examined this patient.: Yes I have fully participated in the care of the patient.: Yes I have reviewed all pertinent clinical information, including history, physical exam and plan: Yes Notes (Text): 05/11/17 18:34 Patient was seen and examined with the resident 05/11/17. Exam, assessment and plan were thoroughly gone over with the resident. Assessments: 1). Right Lung Cavitary Lesion Considering the hemoptysis, the 25mm induration on PPD read at the time of our exam, the weight loss, fever: this is likely TB We have started RIPE therapy 05/11/17 Confirmed that at least 3 sputum cultures/AFB as well as AFB Nucleic Acid Amplification have been sent. I spoke with Microbiology Tech [place] 05/11/17 and she was instructed to keep the sputum samples in refrigerator till the end of June 2017 just in case additional testing is needed on these initial samples Nurse Summers has notified via voicemail youth development professional [employer] Mill[employer] [place] and ID Nurse Sherine Carolina of the patient's positive PPD: Medicine Team please confirm with Sherine Carolina that she is aware and proper [facility] authorities are notified once the AFB stools come back. 2). Klebsiella Pneumonia As per Sputum Culture 05/09/17 Ceftriaxone and Azithromycin were discontinued 05/11/17 although it was sensitive to Ceftriaxone and Imipenem was started as it had a lower ABILIO Imipenem 500 mg IV Q6H 05/11/17 We will have to keep an eye on the LFTs considering the concomitant treatment with RIPE and if the LFTs do start to rise then switch the Imipenem to Ceftriaxone 3). Tachycardia Likely secondary to the above and the fever Therefore Acetaminophen 650 mg Q6H will be continued till 6 PM 05/12/17 and then should be made PRN Fever 4). Complaint of Black Stool Patient stated that he had a black bowel movement this morning HgB/Hct are stable F/U Stool Occult Blood 05/11/17 Nik Ngo D.O.
[2017-05-11 08:48] LABS: BANDS 11 % (0-2); EOSINOPHIL 2 % (0-4); LYMPHOCYTE 11 % (20-40); MONOCYTE 7 % (0-10); NEUTROPHIL 68 % (50-75); PLATELET ESTIMATE NORMAL (NORMAL); REACTIVE LYMPHOCYTES 1 % (0-0); TOTAL CELLS COUNTED 100
[2017-05-11] MEDS: Saccharomyces Boulardi 250 mg Cap PO SCH (09:41)
[2017-05-11] MEDS ORDERED: Potassium Chloride 20 mEq ER Tab PO ONE (10:00)
[2017-05-11] MEDS: Azithromycin 500 MG in Sodium Chloride 0.9% 250 ML IVPB SCH (17:59)
[2017-05-11] MEDS: CILASTATIN IVPB SCH (20:28)
[2017-05-11] MEDS: SODIUM CHLORIDE 0.9% IVPB SCH (20:28)
[2017-05-11] MEDS: IMIPENEM IVPB SCH (20:28)
[2017-05-12] MEDS: Sodium Chloride 0.9% 1,000 ML IV SCH ×3 (01:46→23:18)
[2017-05-12] MEDS: CILASTATIN IVPB SCH ×3 (02:31→21:18)
[2017-05-12] MEDS: IMIPENEM IVPB SCH ×3 (02:31→21:18)
[2017-05-12] MEDS: SODIUM CHLORIDE 0.9% IVPB SCH ×2 (02:31→08:09)
[2017-05-12 07:54] LABS: BASO # 0.1 K/uL (0.0-0.2); BASO % 0.7 % (0.0-2.0); EOS # 0.2 K/uL (0.0-0.7); LYMPH # 0.7 K/uL (1.0-4.3); LYMPH % 9.3 % (20.0-40.0); MEAN CELL VOLUME 85.2 fL (80.0-94.0); MEAN CORPUSCULAR HEMOGLOBIN 28.8 pg (27.0-31.0); MEAN CORPUSCULAR HGB CONC 33.7 g/dL (33.0-37.0); MEAN PLATELET VOLUME 7.7 fL (7.2-11.7); MONO # 0.7 K/uL (0.0-0.8); MONO % 9.4 % (0.0-10.0); NEUT # 5.6 K/uL (1.8-7.0); NEUT % 77.6 % (50.0-75.0); PLATELET COUNT 294 K/uL (130-400); RBC 4.54 Mil/uL (4.40-5.90); RED CELL DISTRIBUTION WIDTH 12.3 % (11.5-14.5); WHITE BLOOD COUNT 7.3 K/uL (4.8-10.8)
[2017-05-12 08:02] LABS: ALB/GLOB RATIO 1.1 (1.0-2.1); ALBUMIN 3.2 g/dL (3.5-5.0); ALT/SGPT 43 U/L (21-72); AST/SGOT 25 U/L (17-59); BLOOD UREA NITROGEN 7 mg/dL (9-20); CALCIUM 7.9 mg/dl (8.6-10.4); GFR AFRICAN-AMERICAN > 60; GFR NON-AFRICAN AMERICAN > 60
[2017-05-12 08:50] LABS: BANDS 8 % (0-2); LYMPHOCYTE 11 % (20-40); MONOCYTE 12 % (0-10); NEUTROPHIL 69 % (50-75); PLATELET ESTIMATE NORMAL (NORMAL); TOTAL CELLS COUNTED 100
--- NOTE | 2017-05-12 09:28 | CP.PCM.PN ---
<Kristal Perea - Last Filed: 05/12/17 14:09> Subjective - Date & Time of Evaluation Date of Evaluation: 05/12/17 Time of Evaluation: 09:26 - Subjective Subjective: Medicine Progress Note: Hospitalist Service Patient seen and examined at bedside. Per nursing no acute events overnight. Patient still have hemoptysis. He had an episode of black stool yesterday, states that stool is dark today but not black. Currently being treated with RIPE therapy. Denies headaches, dizziness, visual changes, cp, palpitations, sob , urinary symptoms. Objective - Vital Signs/Intake and Output Vital Signs (last 24 hours): Temp Pulse Resp BP Pulse Ox 98.2 F 75 20 104/65 95 05/12/17 07:24 05/12/17 07:24 05/12/17 07:24 05/12/17 07:24 05/12/17 07:24 Intake and Output: 05/12/17 05/12/17 06:59 18:59 Intake Total 880 Balance 880 - Medications Medications: Current Medications Acetaminophen (Tylenol 325mg Tab) 650 mg PO Q6 [facility] Stop: 05/12/17 20:00 Last Admin: 05/12/17 05:27 Dose: 650 mg Acetylcysteine (Acetylcysteine 20%) 4 ml INH RQD PRN Albuterol Sulfate (Albuterol 0.083% Inhal Tanesha (2.5 Mg/3 Ml) Ud) 2.5 mg INH RQD TRISHA Ethambutol HCl (Myambutol) 400 mg PO TID [facility] Last Admin: 05/11/17 17:58 Dose: 400 mg Famotidine (Pepcid) 20 mg PO DAILY [facility] Last Admin: 05/11/17 09:42 Dose: 20 mg Sodium Chloride (Sodium Chloride 0.9%) 1,000 mls @ 100 mls/hr IV .Q10H [facility] Last Admin: 05/12/17 01:46 Dose: 100 mls/hr Imipenem/Cilastatin Sodium 250 (mg/ Sodium Chloride) 50 mls @ 100 mls/hr IVPB Q6H [facility] Last Admin: 05/12/17 08:09 Dose: 100 mls/hr Clindamycin Phosphate (Cleocin In Normal Saline) 600 mg in 50 mls @ 100 mls/hr IVPB Q8H [facility] Isoniazid (Niazid) 300 mg PO DAILY [facility] Last Admin: 05/11/17 09:40 Dose: 300 mg Pyrazinamide (Pyrazinamide) 1,500 mg PO DAILY [facility] Last Admin: 05/11/17 09:41 Dose: 1,500 mg Pyridoxine HCl (Vitamin B6 50 Mg Tab) 50 mg PO DAILY [facility] Last Admin: 05/11/17 09:40 Dose: 50 mg Rifampin (Rifampin Cap) 600 mg PO DAILY [facility] Last Admin: 05/11/17 09:40 Dose: 600 mg Saccharomyces Boulardii (Florastor) 250 mg PO DAILY [facility] Last Admin: 05/11/17 09:41 Dose: 250 mg - Labs Labs: 05/12/17 07:30 05/12/17 07:30 PT 15.3 SECONDS (9.7-12.2) H 05/09/17 13:53 INR 1.4 05/09/17 13:53 APTT 31 SECONDS (21-34) 05/09/17 13:53 - Constitutional Appears: Well, No Acute Distress - Head Exam Head Exam: ATRAUMATIC, NORMAL INSPECTION - Eye Exam Eye Exam: EOMI, Normal appearance - ENT Exam ENT Exam: Mucous Membranes Moist - Neck Exam Neck Exam: Full ROM - Respiratory Exam Respiratory Exam: Decreased Breath Sounds, NORMAL BREATHING PATTERN. absent: Rales, Wheezes - Cardiovascular Exam Cardiovascular Exam: REGULAR RHYTHM, +S1, +S2 - GI/Abdominal Exam GI & Abdominal Exam: Soft, Tenderness (RUQ tenderness), Normal Bowel Sounds - Extremities Exam Extremities Exam: Normal Inspection - Neurological Exam Neurological Exam: Alert, Awake, Oriented x3 - Psychiatric Exam Psychiatric exam: Normal Affect, Normal Mood - Skin Skin Exam: Dry, Normal Color, Warm Assessment and Plan (1) Cavitary lesion of lung Assessment & Plan: -Hemoptysis with Right Upper Lobe cavitary lesion -Likely secondary to TB -Patient on Airborne/Droplet Precautions -PPD test positive (25mm induration) -F/U quantiferon gold results -AFB sputum (collected on 05/09) * Nucleic acid amplification: no acid fast bacilli * Mycobacterium culture pending -AFB sputum samples collected from 05/10 and 05/11 still pending -RIPE therapy started yesterday -Continue Rifampin 600mg PO QD, Isoniazid 300mg PO QD, Pyrazinamide [id number] PO QD, Ethambutol 400mg PO TID, Vitamin B6 (pyradoxine) 50mg PO QD -Continue Florastor 250mg PO daily -HIV 1+2 screening, Hepatitis panel = negative -Blood cultures = no growth in 48 hours -ID consulted, Dr. Espinoza; f/u recommendations -Pulmonology consulted, Dr. Pham; f/u recommendations Imaging: - Chest xray on 05/09: Right upper lobe infiltrate with central cavitary lesion ; also appears to be some patchy early infiltrate. - Abd/Pelvis CT on 05/09: No acute abdominal or pelvic abnormality; Constipation ; No evidence of bowel obstruction; Multifocal right lower lobe pneumonia. - CT Chest on 05/09: large area of dense consolidation seen throughout a large portion of mid to posterior aspect of right upper lobe with associated prominent air bronchograms. additional prominent areas of scattered consolidative changes and scattered areas of tree-in-bud opacities seen in right middle and lower lobes. concern for acute infectious and inflammatory changes suggestive of multifocal pneumonia. 1cm focal area of nodular consolidation in lateral aspect of left lung apex (series 3, image 28) with scattered areas of consolidative changes seen within mid to inferior aspect of left upper lobe measuring 1cm on series 3, image 60 up to 2.1 cm on series 3 image 60. concerning for multifocal pneumonia. Left paratracheal lymph nodes 1.2 cm Status: Acute (2) Klebsiella pneumonia Assessment & Plan: -Sputum cx from admission grew klebsiella, sensitivites reviewed -Abx: Imipenem 500 mg IV Q6H, Clindamycin 600mg Q8H -Urine strep pneumonia = pending -Urine legionella, mycoplasma = negative -ID consulted, Dr. Espinoza; f/u recommendations -Pulmonology consulted, Dr. Pham; f/u recommendations Status: Acute (3) Black stools Assessment & Plan: -Patient had one episode of black stool yesterday -Hgb stable -Stool occult blood positive -Not currently on anticoagulation or NSAIDs -Protonix 40mg Q12H IVP -GI consulted, Dr James; F/U recommendations Status: Acute (4) RUQ abdominal pain Assessment & Plan: -Patient having RUQ tenderness on exam -Will order abdominal US Status: Acute (5) Hypokalemia Assessment & Plan: -Potassium repleted yesterday -Continue to monitor Status: Resolved (6) Prophylactic measure Assessment & Plan: -GI ppx: Protonix 40mg Q12H IVP -SCDs (No DVT ppx indicated at this time) Status: Acute <Amy Hillman V - Last Filed: 05/12/17 18:02> Objective - Vital Signs/Intake and Output Vital Signs (last 24 hours): Temp Pulse Resp BP Pulse Ox 98.5 F 90 20 103/68 96 05/12/17 15:40 05/12/17 15:40 05/12/17 15:40 05/12/17 15:40 05/12/17 15:40 Intake and Output: 05/12/17 05/12/17 06:59 18:59 Intake Total 880 Balance 880 - Medications Medications: Current Medications Acetaminophen (Tylenol 325mg Tab) 650 mg PO Q6 [facility] Stop: 05/12/17 20:00 Last Admin: 05/12/17 17:28 Dose: 650 mg Acetylcysteine (Acetylcysteine 20%) 4 ml INH RQD PRN Albuterol Sulfate (Albuterol 0.083% Inhal Tanesha (2.5 Mg/3 Ml) Ud) 2.5 mg INH RQD TRISHA Ethambutol HCl (Myambutol) 400 mg PO TID [facility] Last Admin: 05/12/17 17:28 Dose: 400 mg Famotidine (Pepcid) 40 mg PO DAILY [facility] Sodium Chloride (Sodium Chloride 0.9%) 1,000 mls @ 100 mls/hr IV .Q10H [facility] Last Admin: 05/12/17 14:41 Dose: 100 mls/hr Clindamycin Phosphate (Cleocin In Normal Saline) 600 mg in 50 mls @ 100 mls/hr IVPB Q8H [facility] Last Admin: 05/12/17 17:28 Dose: 100 mls/hr Imipenem/Cilastatin Sodium 250 (mg/ Dextrose) 100 mls @ 100 mls/hr IVPB Q6H [facility] Isoniazid (Niazid) 300 mg PO DAILY [facility] Last Admin: 05/12/17 11:09 Dose: 300 mg Pyrazinamide (Pyrazinamide) 1,500 mg PO DAILY [facility] Last Admin: 05/12/17 11:10 Dose: 1,500 mg Pyridoxine HCl (Vitamin B6 50 Mg Tab) 50 mg PO DAILY [facility] Last Admin: 05/12/17 11:09 Dose: 50 mg Rifampin (Rifampin Cap) 600 mg PO DAILY [facility] Last Admin: 05/12/17 11:09 Dose: 600 mg Saccharomyces Boulardii (Florastor) 250 mg PO DAILY [facility] Last Admin: 05/12/17 11:08 Dose: 250 mg - Labs Labs: 05/12/17 07:30 05/12/17 07:30 PT 15.3 SECONDS (9.7-12.2) H 05/09/17 13:53 INR 1.4 05/09/17 13:53 APTT 31 SECONDS (21-34) 05/09/17 13:53 Attending/Attestation - Attestation I have personally seen and examined this patient.: Yes I have fully participated in the care of the patient.: Yes I have reviewed all pertinent clinical information, including history, physical exam and plan: Yes Notes (Text): Patient seen, examined and case discussed with day-time resident. This is my first time seeing this patient. patient comes in following unremitting cough. Patient is placed on respiratory isolation. Patient at bedside had bloody appearing sputum. Patient denies chest pain, reports hemotypsis, reports abdominal pain, denies nausea, denies vomitting, reports black stool yesterday and reports brown stool today and denies headache. Patient reports urine turned orange colored given side effect of TB medication, is expected. Denies numbness nor tingling. GI Consult (Dr. James) discussed and appreciated recommendation; given hemotypsis; likely black stool is from active tuberculosis; will continue to monitor H/H. Patient does not report any liver disease, no alcohol abuse, no NSAID use. No family hx of colon cancer. Will need to f/u with pulm if thoracic surgery needs to be consult. CT Chest does not suggest abscess, suggest pneumonia. Assessment and Plan (1) Tuberculosis Cavitary lesion of lung Klebsiella Pneumonia Hemotypsis Bandemia Assessment & Plan: Hemoptysis with Right Upper Lobe cavitary lesion Patient on Airborne recautions * Infectious Disease: Dr Espinzoa on board-->help appreciated * Pulmonary: Dr. 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) * F/U quantiferon gold results * Mycobacterium 05/09: no acid fast bacilli seen * Mycobacterium 05/10: no acid fast bacilli seen * Mycobacterium 05/11: no acid fast bacilli seen * Please note: sputum at bedside appears bloody in spite of AFB negative X3 * Active since 05/11/17 * Ethmabutol 400mg PO TID * Isoniazid 300mg PO daily * Prazinamide 1500mg PO daily * Pyridoxine 50mg PO daily * Rifampin 600mg PO daily * Abx: * Primaxin 250mg IVPB Q 6H (active since 05/12/17) * Clindamycin 600mg IVPB Q8H (active since 05/12/17) * Florastor 250mg PO BID * HIV 1+2 screening: negative, Hepatitis panel = negative * Blood cultures = no growth in 48 hours * Imaging: * Chest xray on 05/09: Right upper lobe infiltrate with central cavitary lesion ; also appears to be some patchy early infiltrate. * Abd/Pelvis CT on 05/09: No acute abdominal or pelvic abnormality; Constipation; No evidence of bowel obstruction; Multifocal right lower lobe pneumonia. * CT Chest on 05/09: large area of dense consolidation seen throughout a large portion of mid to posterior aspect of right upper lobe with associated prominent air bronchograms. additional prominent areas of scattered consolidative changes and scattered areas of tree-in-bud opacities seen in right middle and lower lobes. concern for acute infectious and inflammatory changes suggestive of multifocal pneumonia. 1cm focal area of nodular consolidation in lateral aspect of left lung apex (series 3, image 28) with scattered areas of consolidative changes seen within mid to inferior aspect of left upper lobe measuring 1cm on series 3, image 60 up to 2.1 cm on series 3 image 60. concerning for multifocal pneumonia. Left paratracheal lymph nodes 1.2 cm Status: Acute (3) Black stools Assessment & Plan: * Patient had one episode of black stool 05/11 * Hgb stable * Stool occult blood positive, likely secondary to hemotypsis * Not currently on anticoagulation or NSAIDs * GI consulted, Dr James; Discussed secondary to tuberculosis; no GI intervention at this time Status: Acute (4) RUQ abdominal pain Assessment & Plan: * Patient having RUQ tenderness on exam and will order abdominal US * LFTs: normal * hepatitis panel negative * CT abdomen/pelvis (05/09): no acute abdominal or pelvic abnormality, Constipation. No evidence of bowel obstruction. Multifocal right lower lobe pneumonia Status: Acute (5) Hypokalemia Assessment & Plan: * monitor and replete (6) Prophylactic measure Assessment & Plan: * GI ppx: Pepcid 40mg PO daily * SCDs (No DVT ppx indicated at this time) Status: Acute
[2017-05-12] MEDS: Saccharomyces Boulardi 250 mg Cap PO SCH (11:08)
[2017-05-12] MEDS: Clindamycin 600mg/50ml NS 600 MG/50 ML BAG IVPB SCH ×2 (11:13→17:28)
--- NOTE | 2017-05-12 11:41 | CP.PCM.PN ---
Subjective - Date & Time of Evaluation Date of Evaluation: 05/12/17 Time of Evaluation: 09:00 - Subjective Subjective: afb neg thus far + Klebs with hemoptysis and infiltrates ( currant jelly ) Objective - Vital Signs/Intake and Output Vital Signs (last 24 hours): Temp Pulse Resp BP Pulse Ox 98.2 F 75 20 104/65 95 05/12/17 07:24 05/12/17 07:24 05/12/17 07:24 05/12/17 07:24 05/12/17 07:24 Intake and Output: 05/12/17 05/12/17 06:59 18:59 Intake Total 880 Balance 880 - Medications Medications: Current Medications Acetaminophen (Tylenol 325mg Tab) 650 mg PO Q6 [facility] Stop: 05/12/17 20:00 Last Admin: 05/12/17 11:10 Dose: 650 mg Acetylcysteine (Acetylcysteine 20%) 4 ml INH RQD PRN Albuterol Sulfate (Albuterol 0.083% Inhal Tanesha (2.5 Mg/3 Ml) Ud) 2.5 mg INH RQD [facility] Ethambutol HCl (Myambutol) 400 mg PO TID [facility] Last Admin: 05/12/17 11:13 Dose: 400 mg Famotidine (Pepcid) 20 mg PO DAILY [facility] Last Admin: 05/12/17 11:09 Dose: 20 mg Sodium Chloride (Sodium Chloride 0.9%) 1,000 mls @ 100 mls/hr IV .Q10H [facility] Last Admin: 05/12/17 01:46 Dose: 100 mls/hr Clindamycin Phosphate (Cleocin In Normal Saline) 600 mg in 50 mls @ 100 mls/hr IVPB Q8H [facility] Last Admin: 05/12/17 11:13 Dose: 100 mls/hr Imipenem/Cilastatin Sodium 250 (mg/ Sodium Chloride) 100 mls @ 100 mls/hr IVPB Q6H [facility] Isoniazid (Niazid) 300 mg PO DAILY [facility] Last Admin: 05/12/17 11:09 Dose: 300 mg Pyrazinamide (Pyrazinamide) 1,500 mg PO DAILY [facility] Last Admin: 05/12/17 11:10 Dose: 1,500 mg Pyridoxine HCl (Vitamin B6 50 Mg Tab) 50 mg PO DAILY [facility] Last Admin: 05/12/17 11:09 Dose: 50 mg Rifampin (Rifampin Cap) 600 mg PO DAILY [facility] Last Admin: 05/12/17 11:09 Dose: 600 mg Saccharomyces Boulardii (Florastor) 250 mg PO DAILY [facility] Last Admin: 05/12/17 11:08 Dose: 250 mg - Labs Labs: 05/12/17 07:30 05/12/17 07:30 PT 15.3 SECONDS (9.7-12.2) H 05/09/17 13:53 INR 1.4 05/09/17 13:53 APTT 31 SECONDS (21-34) 05/09/17 13:53 - Constitutional Appears: Non-toxic - Head Exam Head Exam: NORMOCEPHALIC - Eye Exam Eye Exam: absent: Scleral icterus - ENT Exam ENT Exam: Mucous Membranes Dry - Neck Exam Neck Exam: absent: Lymphadenopathy - Respiratory Exam Respiratory Exam: Decreased Breath Sounds - Cardiovascular Exam Cardiovascular Exam: REGULAR RHYTHM - GI/Abdominal Exam GI & Abdominal Exam: Distended, Soft - Rectal Exam Rectal Exam: Deferred Assessment and Plan (1) Cavitary lesion of lung Status: Acute (2) Cavitary pneumonia Status: Acute (3) Hemoptysis Status: Acute (4) Pneumonia Status: Acute
--- NOTE | 2017-05-12 15:47 | CP.PCM.CON ---
History of Present Illness - History of Present Illness History of Present Illness: GI Service consult for black stool HPI: 22 year old man admitted for hemoptysis x 3 days. He has cavitary pulmonary lesions and is on respiratory isolation for presumed TB. he was foun to have black stool today so GI consult was requested. he denies abdominal pain or risk factors for peptic disease. he thinks he had gastritis in the past. No drop in Hgb. since admission. Discussed with resident and Dr Hillman. Past Patient History - Past Medical History & Family History Past Medical History?: No - Past Social History Smoking Status: Never Smoked Alcohol: None - CARDIAC Hx Cardiac Disorders: No - PULMONARY Hx Respiratory Disorders: No - NEUROLOGICAL Hx Neurological Disorder: No - HEENT Hx HEENT Problems: No - RENAL Hx Chronic Kidney Disease: No - ENDOCRINE/METABOLIC Hx Endocrine Disorders: No - HEMATOLOGICAL/ONCOLOGICAL Hx Blood Disorders: No - INTEGUMENTARY Hx Dermatological Problems: No - MUSCULOSKELETAL/RHEUMATOLOGICAL Hx Musculoskeletal Disorders: No Hx Falls: No - GASTROINTESTINAL Hx Gastrointestinal Disorders: No - GENITOURINARY/GYNECOLOGICAL Hx Genitourinary Disorders: No - PSYCHIATRIC Hx Substance Use: No - SURGICAL HISTORY Hx Surgeries: No - ANESTHESIA Hx Anesthesia: No Hx Anesthesia Reactions: No Meds Allergies/Adverse Reactions: Allergies Allergy/AdvReac Type Severity Reaction Status Date / Time No Known Allergies Allergy Unverified 05/09/17 12:36 - Medications Medications: Current Medications Acetaminophen (Tylenol 325mg Tab) 650 mg PO Q6 [facility] Stop: 05/12/17 20:00 Last Admin: 05/12/17 11:10 Dose: 650 mg Acetylcysteine (Acetylcysteine 20%) 4 ml INH RQD PRN Albuterol Sulfate (Albuterol 0.083% Inhal Tanesha (2.5 Mg/3 Ml) Ud) 2.5 mg INH RQD [facility] Ethambutol HCl (Myambutol) 400 mg PO TID [facility] Last Admin: 05/12/17 13:59 Dose: 400 mg Sodium Chloride (Sodium Chloride 0.9%) 1,000 mls @ 100 mls/hr IV .Q10H [facility] Last Admin: 05/12/17 14:41 Dose: 100 mls/hr Clindamycin Phosphate (Cleocin In Normal Saline) 600 mg in 50 mls @ 100 mls/hr IVPB Q8H [facility] Last Admin: 05/12/17 11:13 Dose: 100 mls/hr Imipenem/Cilastatin Sodium 250 (mg/ Sodium Chloride) 100 mls @ 100 mls/hr IVPB Q6H [facility] Last Admin: 05/12/17 14:49 Dose: 100 mls/hr Isoniazid (Niazid) 300 mg PO DAILY [facility] Last Admin: 05/12/17 11:09 Dose: 300 mg Pantoprazole Sodium (Protonix Inj) 40 mg IVP Q12H [facility] Last Admin: 05/12/17 14:05 Dose: 40 mg Pyrazinamide (Pyrazinamide) 1,500 mg PO DAILY [facility] Last Admin: 05/12/17 11:10 Dose: 1,500 mg Pyridoxine HCl (Vitamin B6 50 Mg Tab) 50 mg PO DAILY [facility] Last Admin: 05/12/17 11:09 Dose: 50 mg Rifampin (Rifampin Cap) 600 mg PO DAILY [facility] Last Admin: 05/12/17 11:09 Dose: 600 mg Saccharomyces Boulardii (Florastor) 250 mg PO DAILY [facility] Last Admin: 05/12/17 11:08 Dose: 250 mg Physical Exam - Constitutional Appears: Well, No Acute Distress - Head Exam Head Exam: ATRAUMATIC, NORMOCEPHALIC - Eye Exam Eye Exam: absent: Scleral icterus - Neck Exam Neck exam: Positive for: Normal Inspection - Respiratory Exam Respiratory Exam: NORMAL BREATHING PATTERN - Cardiovascular Exam Cardiovascular Exam: REGULAR RHYTHM - GI/Abdominal Exam GI & Abdominal Exam: Soft. absent: Organomegaly, Tenderness Results - Vital Signs Recent Vital Signs: Last Vital Signs Temp 98.5 F 05/12/17 15:40 Pulse 90 05/12/17 15:40 Resp 20 05/12/17 15:40 BP 103/68 05/12/17 15:40 Pulse Ox 96 05/12/17 15:40 - Labs Result Diagrams: 05/12/17 07:30 05/12/17 07:30 Labs: Laboratory Results - last 24 hr 05/11/17 05/12/17 05/12/17 18:31 07:30 07:30 WBC 7.3 RBC 4.54 Hgb 13.0 Hct 38.7 MCV 85.2 MCH 28.8 MCHC 33.7 RDW 12.3 Plt Count 294 MPV 7.7 Neut % (Auto) 77.6 H Lymph % (Auto) 9.3 L [place] % (Auto) 9.4 Eos % (Auto) 3.0 Baso % (Auto) 0.7 Neut # 5.6 Lymph # 0.7 L [place] # 0.7 Eos # 0.2 Baso # 0.1 Neutrophils % (Manual) 69 Band Neutrophils % 8 H Lymphocytes % (Manual) 11 L Monocytes % (Manual) 12 H Platelet Estimate Normal RBC Morphology Normal Sodium 136 Potassium 4.0 Chloride 103 Carbon Dioxide 27 Anion Gap 11 BUN 7 L Creatinine 0.7 L Est GFR ( Amer) > 60 Est GFR (Non-Af Amer) > 60 Random Glucose 96 Calcium 7.9 L Total Bilirubin 0.5 AST 25 ALT 43 Alkaline Phosphatase 74 Total Protein 6.1 L Albumin 3.2 L Globulin 2.9 Albumin/Globulin Ratio 1.1 Stool Occult Blood Positive H Assessment & Plan (1) Black stools Assessment and Plan: By history this is from hemoptysis Would not pursue endoscopic workup at this time May advance diet Change to oral PPI and monitor Hgb Status: Acute (2) Cavitary lesion of lung Assessment and Plan: ID workup and magament in progress for possible Pulmonary TB Status: Acute - Date & Time Date: 05/12/17 Time: 15:50
--- NOTE | 2017-05-12 18:52 | US ---
HISTORY: RUQ pain COMPARISON: None. TECHNIQUE: Sonographic evaluation of the abdomen. FINDINGS: LIVER: Measures 13.8 cm. Normal echogenicity of the liver parenchyma. No mass. No intrahepatic bile duct dilatation. GALLBLADDER: Unremarkable. No gallstones. COMMON BILE DUCT: Measures 3.9 mm. No stones. No dilatation. PANCREAS: Imaging of the pancreas obscured by gas in the gastrointestinal tract. RIGHT KIDNEY: Measures 10.0cm. Normal echogenicity. No calculus, mass, or hydronephrosis. LEFT KIDNEY: Measures 10.4cm. Normal echogenicity. No calculus, mass, or hydronephrosis. SPLEEN: Normal in size and contour, measuring 11.0 cm. No mass. AORTA: No aneurysmal dilatation. IVC: Unremarkable. OTHER FINDINGS: None. IMPRESSION: Evaluation of pancreas is obscured by gas in the gastrointestinal tract however the remainder of the examination is unremarkable.
[2017-05-12] MEDS: DEXTROSE 5% IVPB SCH (21:18)
[2017-05-12] MEDS: WATER IVPB SCH (21:18)
[2017-05-13] MEDS: Clindamycin 600mg/50ml NS 600 MG/50 ML BAG IVPB SCH ×3 (00:48→17:19)
[2017-05-13 01:10] LABS: TB ANTIGEN MINUS NIL 3.97 IU/mL
[2017-05-13] MEDS: IMIPENEM IVPB SCH ×3 (02:57→17:54)
[2017-05-13] MEDS: WATER IVPB SCH ×3 (02:57→17:54)
[2017-05-13] MEDS: CILASTATIN IVPB SCH ×3 (02:57→17:54)
[2017-05-13] MEDS: DEXTROSE 5% IVPB SCH ×3 (02:57→17:54)
[2017-05-13] MEDS ORDERED: Albuterol 0.083% Inhal Sol (2.5 mg/3 mL) UD INH SCH (08:00)
[2017-05-13 08:02] LABS: BASO % 0.7 % (0.0-2.0); EOS # 0.3 K/uL (0.0-0.7); EOS % 4.9 % (0.0-4.0); HEMOGLOBIN 13.5 g/dL (12.0-18.0); LYMPH # 0.9 K/uL (1.0-4.3); LYMPH % 14.9 % (20.0-40.0); MEAN CELL VOLUME 84.8 fL (80.0-94.0); MEAN CORPUSCULAR HEMOGLOBIN 28.4 pg (27.0-31.0); MEAN CORPUSCULAR HGB CONC 33.5 g/dL (33.0-37.0); MEAN PLATELET VOLUME 7.7 fL (7.2-11.7); MONO # 0.6 K/uL (0.0-0.8); MONO % 10.4 % (0.0-10.0); NEUT # 4.2 K/uL (1.8-7.0); NEUT % 69.1 % (50.0-75.0); RBC 4.75 Mil/uL (4.40-5.90); RED CELL DISTRIBUTION WIDTH 12.5 % (11.5-14.5)
[2017-05-13 08:42] LABS: ALB/GLOB RATIO 1.1 (1.0-2.1); ALBUMIN 3.2 g/dL (3.5-5.0); ALT/SGPT 28 U/L (21-72); AST/SGOT 28 U/L (17-59); BLOOD UREA NITROGEN 10 mg/dL (9-20); GFR AFRICAN-AMERICAN > 60; GFR NON-AFRICAN AMERICAN > 60
[2017-05-13] MEDS: Sodium Chloride 0.9% 1,000 ML IV SCH (09:10)
[2017-05-13] MEDS: Saccharomyces Boulardi 250 mg Cap PO SCH (09:12)
--- NOTE | 2017-05-13 10:12 | CP.PCM.PN ---
<Kristal Perea - Last Filed: 05/13/17 14:12> Subjective - Date & Time of Evaluation Date of Evaluation: 05/13/17 Time of Evaluation: 10:09 - Subjective Subjective: Medicine Progress Note: Hospitalist Service Patient seen and examined at bedside. Per nursing no acute events overnight. Patient had dark BM x 1 yesterday. Patient is also having orange colored urine, he is aware that this is a side effect of the TB medication. States that coughing and hemoptysis is less today. Ambulating and tolerating diet. Denies fatigue, fevers, chills, visual changes, night sweats, headaches, dizziness, cp , palpitations, sob, urinary symptoms. Objective - Vital Signs/Intake and Output Vital Signs (last 24 hours): Temp Pulse Resp BP Pulse Ox 99.9 F H 98 H 20 99/66 L 93 L 05/13/17 07:02 05/13/17 07:02 05/13/17 07:02 05/13/17 07:02 05/13/17 07:02 - Medications Medications: Current Medications Albuterol Sulfate (Albuterol 0.083% Inhal Tanesha (2.5 Mg/3 Ml) Ud) 2.5 mg INH RQD [facility] Last Admin: 05/13/17 08:31 Dose: Not Given Ethambutol HCl (Myambutol) 400 mg PO TID [facility] Last Admin: 05/12/17 17:28 Dose: 400 mg Famotidine (Pepcid) 40 mg PO DAILY [facility] Last Admin: 05/13/17 09:12 Dose: 40 mg Sodium Chloride (Sodium Chloride 0.9%) 1,000 mls @ 100 mls/hr IV .Q10H [facility] Last Admin: 05/13/17 09:10 Dose: 100 mls/hr Clindamycin Phosphate (Cleocin In Normal Saline) 600 mg in 50 mls @ 100 mls/hr IVPB Q8H [facility] Last Admin: 05/13/17 09:11 Dose: 100 mls/hr Imipenem/Cilastatin Sodium 250 (mg/ Dextrose) 100 mls @ 100 mls/hr IVPB Q6H [facility] Isoniazid (Niazid) 300 mg PO DAILY [facility] Last Admin: 05/13/17 09:11 Dose: 300 mg Pyrazinamide (Pyrazinamide) 1,500 mg PO DAILY [facility] Last Admin: 05/13/17 09:12 Dose: 1,500 mg Pyridoxine HCl (Vitamin B6 50 Mg Tab) 50 mg PO DAILY [facility] Last Admin: 05/13/17 09:12 Dose: 50 mg Rifampin (Rifampin Cap) 600 mg PO DAILY [facility] Last Admin: 05/13/17 09:11 Dose: 600 mg Saccharomyces Boulardii (Florastor) 250 mg PO DAILY [facility] Last Admin: 05/13/17 09:12 Dose: 250 mg - Labs Labs: 05/13/17 07:49 05/13/17 07:49 PT 15.3 SECONDS (9.7-12.2) H 05/09/17 13:53 INR 1.4 05/09/17 13:53 APTT 31 SECONDS (21-34) 05/09/17 13:53 - Constitutional Appears: Well, No Acute Distress - Head Exam Head Exam: ATRAUMATIC, NORMAL INSPECTION - Eye Exam Eye Exam: EOMI, Normal appearance - ENT Exam ENT Exam: Mucous Membranes Moist - Neck Exam Neck Exam: Full ROM - Respiratory Exam Respiratory Exam: Decreased Breath Sounds, NORMAL BREATHING PATTERN. absent: Rhonchi, Wheezes - Cardiovascular Exam Cardiovascular Exam: REGULAR RHYTHM, +S1, +S2. absent: Murmur - GI/Abdominal Exam GI & Abdominal Exam: Soft, Normal Bowel Sounds. absent: Guarding, Rigid, Tenderness - Rectal Exam Rectal Exam: NORMAL INSPECTION. absent: Black Stool, Bloody Stool, Hemorrhoids Assessment and Plan (1) Cavitary lesion of lung Assessment & Plan: * Hemoptysis with Right Upper Lobe cavitary lesion * Patient on Airborne precautions * Infectious Disease: Dr Espinoza on board-->help appreciated * Pulmonary: Dr. 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) * Quantiferon gold test positive * Mycobacterium 05/09: no acid fast bacilli seen, culture pending * Mycobacterium 05/10: no acid fast bacilli seen, culture pending * Mycobacterium 05/11: no acid fast bacilli seen, culture pending * Patient informed that he will need to continue TB therapy and isolation in the hospital for 6 weeks * Active since 05/11/17 * Ethmabutol 400mg PO TID * Isoniazid 300mg PO daily * Prazinamide 1500mg PO daily * Pyridoxine 50mg PO daily * Rifampin 600mg PO daily * Abx: * Primaxin 250mg IVPB Q6H (active since 05/12/17) * Clindamycin 600mg IVPB Q8H (active since 05/12/17) * Florastor 250mg PO BID * HIV 1+2 screening: negative, Hepatitis panel = negative * Blood cultures = no growth in 48 hours * Imaging: * Chest xray on 05/09: Right upper lobe infiltrate with central cavitary lesion ; also appears to be some patchy early infiltrate. * Abd/Pelvis CT on 05/09: No acute abdominal or pelvic abnormality; Constipation; No evidence of bowel obstruction; Multifocal right lower lobe pneumonia. * CT Chest on 05/09: large area of dense consolidation seen throughout a large portion of mid to posterior aspect of right upper lobe with associated prominent air bronchograms. additional prominent areas of scattered consolidative changes and scattered areas of tree-in-bud opacities seen in right middle and lower lobes. concern for acute infectious and inflammatory changes suggestive of multifocal pneumonia. 1cm focal area of nodular consolidation in lateral aspect of left lung apex (series 3, image 28) with scattered areas of consolidative changes seen within mid to inferior aspect of left upper lobe measuring 1cm on series 3, image 60 up to 2.1 cm on series 3 image 60. concerning for multifocal pneumonia. Left paratracheal lymph nodes 1.2 cm Status: Acute (2) Klebsiella pneumonia Assessment & Plan: * Sputum cx from admission grew klebsiella, sensitivites reviewed * Abx: Imipenem 500 mg IV Q6H, Clindamycin 600mg Q8H * Urine strep pneumonia = pending * Urine legionella, mycoplasma = negative * ID consulted, Dr. Espinoza; f/u recommendations * Pulmonology consulted, Dr. Pham; f/u recommendations Status: Acute (3) Black stools Assessment & Plan: * Patient had one episode of black stool 05/11 * Hgb stable * Stool occult blood positive * Not currently on anticoagulation or NSAIDs * GI consulted, Dr James; Discussed secondary to tuberculosis; no GI intervention at this time Status: Acute (4) RUQ abdominal pain Assessment & Plan: * Abdominal pain resolved * Abdominal US showed no acute findings * LFTs: normal * Hepatitis panel negative * CT abdomen/pelvis (05/09): no acute abdominal or pelvic abnormality, Constipation. No evidence of bowel obstruction. Multifocal right lower lobe pneumonia Status: Acute (5) Hypokalemia Assessment & Plan: * Monitor and replete as needed Status: Resolved (6) Prophylactic measure Assessment & Plan: * GI ppx: Pepcid 40mg PO daily * SCDs (No DVT ppx indicated at this time) Status: Acute <Amy Hillman V - Last Filed: 05/13/17 20:34> Objective - Vital Signs/Intake and Output Vital Signs (last 24 hours): Temp Pulse Resp BP Pulse Ox 99 F 96 H 20 110/67 95 05/13/17 15:55 05/13/17 19:52 05/13/17 15:55 05/13/17 15:55 05/13/17 15:55 Intake and Output: 05/13/17 05/14/17 18:59 06:59 Intake Total 1280 Balance 1280 - Medications Medications: Current Medications Albuterol/Ipratropium (Duoneb 3 Mg/0.5 Mg (3 Ml) Ud) 3 ml INH RQ6 [facility] Last Admin: 05/13/17 19:48 Dose: 3 ml Ethambutol HCl (Myambutol) 400 mg PO TID [facility] Last Admin: 05/13/17 17:20 Dose: 400 mg Famotidine (Pepcid) 40 mg PO DAILY [facility] Last Admin: 05/13/17 09:12 Dose: 40 mg Sodium Chloride (Sodium Chloride 0.9%) 1,000 mls @ 100 mls/hr IV .Q10H [facility] Last Admin: 05/13/17 09:10 Dose: 100 mls/hr Imipenem/Cilastatin Sodium 250 (mg/ Dextrose) 100 mls @ 100 mls/hr IVPB Q6H [facility] Last Admin: 05/13/17 17:54 Dose: 100 mls/hr Isoniazid (Niazid) 300 mg PO DAILY [facility] Last Admin: 05/13/17 09:11 Dose: 300 mg Pyrazinamide (Pyrazinamide) 1,500 mg PO DAILY [facility] Last Admin: 05/13/17 09:12 Dose: 1,500 mg Pyridoxine HCl (Vitamin B6 50 Mg Tab) 50 mg PO DAILY [facility] Last Admin: 05/13/17 09:12 Dose: 50 mg Rifampin (Rifampin Cap) 600 mg PO DAILY [facility] Last Admin: 05/13/17 09:11 Dose: 600 mg Saccharomyces Boulardii (Florastor) 250 mg PO DAILY [facility] Last Admin: 05/13/17 09:12 Dose: 250 mg - Labs Labs: 05/13/17 07:49 05/13/17 07:49 PT 15.3 SECONDS (9.7-12.2) H 05/09/17 13:53 INR 1.4 05/09/17 13:53 APTT 31 SECONDS (21-34) 05/09/17 13:53 Attending/Attestation - Attestation I have personally seen and examined this patient.: Yes I have fully participated in the care of the patient.: Yes I have reviewed all pertinent clinical information, including history, physical exam and plan: Yes Notes (Text): Patient seen, examined and case discussed with day-time resident. Patient is placed on respiratory isolation. Patient at bedside had bloody appearing sputum. Patient denies chest pain, reports hemotypsis, reports abdominal pain, denies nausea, denies vomitting, reports black stool yesterday and reports brown stool today and denies headache. Patient reports urine turned orange colored given side effect of TB medication, is expected. Denies numbness nor tingling. Patient's quanteferon positive and newest AFB is positive for AFB. Patient to continue medications per ID for TB. Assessment and Plan (1) Tuberculosis Cavitary lesion of lung Klebsiella Pneumonia Hemotypsis Bandemia Assessment & Plan: Hemoptysis with Right Upper Lobe cavitary lesion Patient on Airborne precautions * Infectious Disease: Dr Espinoza on board-->help appreciated * Pulmonary: Dr. 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) * Positive Quantaferon * Mycobacterium 05/09: no acid fast bacilli seen * Mycobacterium 05/10: no acid fast bacilli seen * Mycobacterium 05/11: no acid fast bacilli seen * Mycobacterium 05/12: Rare 1+ acid fast bacilli seen * Active since 05/11/17 * Ethmabutol 400mg PO TID * Isoniazid 300mg PO daily * Prazinamide 1500mg PO daily * Pyridoxine 50mg PO daily * Rifampin 600mg PO daily * Abx: * Primaxin 250mg IVPB Q 6H (active since 05/12/17) * Clindamycin 600mg IVPB Q8H (active since 05/12/17) * Florastor 250mg PO BID * HIV 1+2 screening: negative, Hepatitis panel = negative * Blood cultures = no growth in 48 hours * Imaging: * Chest xray on 05/09: Right upper lobe infiltrate with central cavitary lesion ; also appears to be some patchy early infiltrate. * Abd/Pelvis CT on 05/09: No acute abdominal or pelvic abnormality; Constipation; No evidence of bowel obstruction; Multifocal right lower lobe pneumonia. * CT Chest on 05/09: large area of dense consolidation seen throughout a large portion of mid to posterior aspect of right upper lobe with associated prominent air bronchograms. additional prominent areas of scattered consolidative changes and scattered areas of tree-in-bud opacities seen in right middle and lower lobes. concern for acute infectious and inflammatory changes suggestive of multifocal pneumonia. 1cm focal area of nodular consolidation in lateral aspect of left lung apex (series 3, image 28) with scattered areas of consolidative changes seen within mid to inferior aspect of left upper lobe measuring 1cm on series 3, image 60 up to 2.1 cm on series 3 image 60. concerning for multifocal pneumonia. Left paratracheal lymph nodes 1.2 cm Status: Acute (3) Black stools Assessment & Plan: * Patient had one episode of black stool 05/11; patient has active tuberculosis * Hgb stable * Stool occult blood positive, likely secondary to hemotypsis * Not currently on anticoagulation or NSAIDs * GI consulted, Dr James; Discussed secondary to tuberculosis; no GI intervention at this time Status: Acute (4) RUQ abdominal pain-->resolved Assessment & Plan: * LFTs: normal * hepatitis panel negative * CT abdomen/pelvis (05/09): no acute abdominal or pelvic abnormality, Constipation. No evidence of bowel obstruction. Multifocal right lower lobe pneumonia * Abdominal US (05/12/17): evaluation of pancreas is obscured by gas in the GI tract however the remainder of examination is unremarkable Status: Acute (5) Hypokalemia Assessment & Plan: * monitor and replete (6) Prophylactic measure Assessment & Plan: * GI ppx: Pepcid 40mg PO daily * SCDs (No DVT ppx indicated at this time) Status: Acute
--- NOTE | 2017-05-13 12:38 | CP.PCM.PN ---
Subjective - Date & Time of Evaluation Date of Evaluation: 05/13/17 Time of Evaluation: 08:30 - Subjective Subjective: F/U black stools Pt reports no black stools now. Denies abdom pain, fever, SZ, Hematuria, myalgia Objective - Vital Signs/Intake and Output Vital Signs (last 24 hours): Temp Pulse Resp BP Pulse Ox 99.9 F H 98 H 20 99/66 L 93 L 05/13/17 07:02 05/13/17 07:02 05/13/17 07:02 05/13/17 07:02 05/13/17 07:02 - Medications Medications: Current Medications Albuterol Sulfate (Albuterol 0.083% Inhal Tanesha (2.5 Mg/3 Ml) Ud) 2.5 mg INH RQD [facility] Last Admin: 05/13/17 08:31 Dose: Not Given Ethambutol HCl (Myambutol) 400 mg PO TID [facility] Last Admin: 05/13/17 11:29 Dose: 400 mg Famotidine (Pepcid) 40 mg PO DAILY [facility] Last Admin: 05/13/17 09:12 Dose: 40 mg Sodium Chloride (Sodium Chloride 0.9%) 1,000 mls @ 100 mls/hr IV .Q10H [facility] Last Admin: 05/13/17 09:10 Dose: 100 mls/hr Clindamycin Phosphate (Cleocin In Normal Saline) 600 mg in 50 mls @ 100 mls/hr IVPB Q8H [facility] Last Admin: 05/13/17 09:11 Dose: 100 mls/hr Imipenem/Cilastatin Sodium 250 (mg/ Dextrose) 100 mls @ 100 mls/hr IVPB Q6H [facility] Last Admin: 05/13/17 11:29 Dose: 100 mls/hr Isoniazid (Niazid) 300 mg PO DAILY [facility] Last Admin: 05/13/17 09:11 Dose: 300 mg Pyrazinamide (Pyrazinamide) 1,500 mg PO DAILY [facility] Last Admin: 05/13/17 09:12 Dose: 1,500 mg Pyridoxine HCl (Vitamin B6 50 Mg Tab) 50 mg PO DAILY [facility] Last Admin: 05/13/17 09:12 Dose: 50 mg Rifampin (Rifampin Cap) 600 mg PO DAILY [facility] Last Admin: 05/13/17 09:11 Dose: 600 mg Saccharomyces Boulardii (Florastor) 250 mg PO DAILY [facility] Last Admin: 05/13/17 09:12 Dose: 250 mg - Labs Labs: 05/13/17 07:49 05/13/17 07:49 PT 15.3 SECONDS (9.7-12.2) H 05/09/17 13:53 INR 1.4 05/09/17 13:53 APTT 31 SECONDS (21-34) 05/09/17 13:53 - Constitutional Appears: Non-toxic - Respiratory Exam Respiratory Exam: Clear to Ausculation Bilateral - Cardiovascular Exam Cardiovascular Exam: RRR - GI/Abdominal Exam GI & Abdominal Exam: Soft, Normal Bowel Sounds. absent: Tenderness - Neurological Exam Neurological Exam: Alert, Oriented x3 Assessment and Plan (1) Black stools Assessment & Plan: From hemoptysis and swallowing blood. Check Hb. Status: Acute (2) Cavitary lesion of lung Status: Acute (3) Hemoptysis Status: Acute
--- NOTE | 2017-05-13 17:35 | CP.PCM.PN ---
Subjective - Date & Time of Evaluation Date of Evaluation: 05/13/17 Time of Evaluation: 17:32 - Subjective Subjective: sputum AFB + for rare AFB Objective - Vital Signs/Intake and Output Vital Signs (last 24 hours): Temp Pulse Resp BP Pulse Ox 99 F 90 20 110/67 95 05/13/17 15:55 05/13/17 15:55 05/13/17 15:55 05/13/17 15:55 05/13/17 15:55 Intake and Output: 05/13/17 05/13/17 06:59 18:59 Intake Total 1280 Balance 1280 - Medications Medications: Current Medications Albuterol Sulfate (Albuterol 0.083% Inhal Tanesha (2.5 Mg/3 Ml) Ud) 2.5 mg INH RQD [facility] Last Admin: 05/13/17 08:31 Dose: Not Given Ethambutol HCl (Myambutol) 400 mg PO TID [facility] Last Admin: 05/13/17 17:20 Dose: 400 mg Famotidine (Pepcid) 40 mg PO DAILY [facility] Last Admin: 05/13/17 09:12 Dose: 40 mg Sodium Chloride (Sodium Chloride 0.9%) 1,000 mls @ 100 mls/hr IV .Q10H [facility] Last Admin: 05/13/17 09:10 Dose: 100 mls/hr Clindamycin Phosphate (Cleocin In Normal Saline) 600 mg in 50 mls @ 100 mls/hr IVPB Q8H [facility] Last Admin: 05/13/17 17:19 Dose: 100 mls/hr Imipenem/Cilastatin Sodium 250 (mg/ Dextrose) 100 mls @ 100 mls/hr IVPB Q6H [facility] Last Admin: 05/13/17 11:29 Dose: 100 mls/hr Isoniazid (Niazid) 300 mg PO DAILY [facility] Last Admin: 05/13/17 09:11 Dose: 300 mg Pyrazinamide (Pyrazinamide) 1,500 mg PO DAILY [facility] Last Admin: 05/13/17 09:12 Dose: 1,500 mg Pyridoxine HCl (Vitamin B6 50 Mg Tab) 50 mg PO DAILY [facility] Last Admin: 05/13/17 09:12 Dose: 50 mg Rifampin (Rifampin Cap) 600 mg PO DAILY [facility] Last Admin: 05/13/17 09:11 Dose: 600 mg Saccharomyces Boulardii (Florastor) 250 mg PO DAILY [facility] Last Admin: 05/13/17 09:12 Dose: 250 mg - Labs Labs: 05/13/17 07:49 05/13/17 07:49 PT 15.3 SECONDS (9.7-12.2) H 05/09/17 13:53 INR 1.4 05/09/17 13:53 APTT 31 SECONDS (21-34) 05/09/17 13:53 - Constitutional Appears: No Acute Distress - Head Exam Head Exam: ATRAUMATIC, NORMOCEPHALIC - Eye Exam Eye Exam: Normal appearance - ENT Exam ENT Exam: Mucous Membranes Moist - Respiratory Exam Respiratory Exam: Decreased Breath Sounds - Cardiovascular Exam Cardiovascular Exam: REGULAR RHYTHM, +S1, +S2 - GI/Abdominal Exam GI & Abdominal Exam: Normal Bowel Sounds - Rectal Exam Rectal Exam: Deferred - Extremities Exam Extremities Exam: Full ROM - Neurological Exam Neurological Exam: Alert, Awake, Oriented x3 - Psychiatric Exam Psychiatric exam: Normal Affect, Normal Mood - Skin Skin Exam: Intact Assessment and Plan (1) Cavitary pneumonia Status: Acute (2) Lung abscess Status: Suspected (3) Tuberculosis diagnosed by microscopy Assessment & Plan: continue tb meds, abx as per id Status: Acute
[2017-05-13] MEDS: Albuterol-Ipratrop 3 mg / 0.5 (3 ml) UD INH SCH (19:48)
[2017-05-14] MEDS: Sodium Chloride 0.9% 1,000 ML IV SCH ×2 (00:09→13:39)
[2017-05-14] MEDS: DEXTROSE 5% IVPB SCH ×4 (00:09→17:53)
[2017-05-14] MEDS: CILASTATIN IVPB SCH ×4 (00:09→17:53)
[2017-05-14] MEDS: IMIPENEM IVPB SCH ×4 (00:09→17:53)
[2017-05-14] MEDS: WATER IVPB SCH ×4 (00:09→17:53)
[2017-05-14] MEDS: Albuterol-Ipratrop 3 mg / 0.5 (3 ml) UD INH SCH ×4 (02:25→19:50)
[2017-05-14 08:31] LABS: BASO % 0.6 % (0.0-2.0); EOS # 0.3 K/uL (0.0-0.7); HEMOGLOBIN 13.5 g/dL (12.0-18.0); LYMPH % 11.6 % (20.0-40.0); MEAN CELL VOLUME 84.4 fL (80.0-94.0); MEAN CORPUSCULAR HEMOGLOBIN 29.5 pg (27.0-31.0); MEAN PLATELET VOLUME 7.3 fL (7.2-11.7); MONO # 0.8 K/uL (0.0-0.8); MONO % 10.3 % (0.0-10.0); NEUT % 73.5 % (50.0-75.0); RBC 4.57 Mil/uL (4.40-5.90); RED CELL DISTRIBUTION WIDTH 12.1 % (11.5-14.5); WHITE BLOOD COUNT 8.2 K/uL (4.8-10.8)
--- NOTE | 2017-05-14 08:57 | CP.PCM.PN ---
<Kristal Perea - Last Filed: 05/14/17 12:58> Subjective - Date & Time of Evaluation Date of Evaluation: 05/14/17 Time of Evaluation: 08:56 - Subjective Subjective: Medicine Progress Note: Hospitalist Service Patient seen and examined at bedside. Per nursing, no acute events overnight. Patient is doing well, offers no complaints. Having some hemopytsis, patient states that it is getting better. Urine is orange in color, patient aware that this is a side effect of the medication. Stool color is normal. Denies headaches , dizziness, F/C, N/V, visual changes, cp, palpitations, sob, abdominal pain, urinary symptoms, numbness or tingling. Objective - Vital Signs/Intake and Output Vital Signs (last 24 hours): Temp Pulse Resp BP Pulse Ox 98.5 F 101 H 20 110/70 95 05/14/17 08:23 05/14/17 08:23 05/14/17 08:23 05/14/17 08:23 05/14/17 08:23 - Medications Medications: Current Medications Albuterol/Ipratropium (Duoneb 3 Mg/0.5 Mg (3 Ml) Ud) 3 ml INH RQ6 [facility] Last Admin: 05/14/17 07:42 Dose: 3 ml Ethambutol HCl (Myambutol) 400 mg PO TID [facility] Last Admin: 05/13/17 17:20 Dose: 400 mg Famotidine (Pepcid) 40 mg PO DAILY [facility] Last Admin: 05/13/17 09:12 Dose: 40 mg Imipenem/Cilastatin Sodium 250 (mg/ Dextrose) 100 mls @ 100 mls/hr IVPB Q6H [facility] Last Admin: 05/14/17 05:54 Dose: 100 mls/hr Isoniazid (Niazid) 300 mg PO DAILY [facility] Last Admin: 05/13/17 09:11 Dose: 300 mg Pyrazinamide (Pyrazinamide) 1,500 mg PO DAILY [facility] Last Admin: 05/13/17 09:12 Dose: 1,500 mg Pyridoxine HCl (Vitamin B6 50 Mg Tab) 50 mg PO DAILY [facility] Last Admin: 05/13/17 09:12 Dose: 50 mg Rifampin (Rifampin Cap) 600 mg PO DAILY [facility] Last Admin: 05/13/17 09:11 Dose: 600 mg Saccharomyces Boulardii (Florastor) 250 mg PO DAILY [facility] Last Admin: 05/13/17 09:12 Dose: 250 mg - Labs Labs: 05/14/17 08:12 05/13/17 07:49 PT 15.3 SECONDS (9.7-12.2) H 05/09/17 13:53 INR 1.4 05/09/17 13:53 APTT 31 SECONDS (21-34) 05/09/17 13:53 - Constitutional Appears: Well, No Acute Distress - Head Exam Head Exam: ATRAUMATIC, NORMAL INSPECTION - Eye Exam Eye Exam: EOMI, Normal appearance - ENT Exam ENT Exam: Mucous Membranes Moist - Neck Exam Neck Exam: Full ROM - Respiratory Exam Respiratory Exam: Clear to Ausculation Bilateral, NORMAL BREATHING PATTERN. absent: Rales, Rhonchi, Wheezes - Cardiovascular Exam Cardiovascular Exam: REGULAR RHYTHM, +S1, +S2 - GI/Abdominal Exam GI & Abdominal Exam: Soft, Normal Bowel Sounds. absent: Guarding, Rigid, Tenderness - Extremities Exam Extremities Exam: Normal Inspection - Back Exam Back Exam: NORMAL INSPECTION - Neurological Exam Neurological Exam: Alert, Awake, Normal Gait, Oriented x3 Neuro motor strength exam: Left Upper Extremity: 5, Right Upper Extremity: 5, Left Lower Extremity: 5, Right Lower Extremity: 5 - Psychiatric Exam Psychiatric exam: Normal Affect, Normal Mood - Skin Skin Exam: Dry, Normal Color, Warm Assessment and Plan (1) Cavitary lesion of lung Assessment & Plan: * Hemoptysis with Right Upper Lobe cavitary lesion * Patient on Airborne precautions * Infectious Disease: Dr Espinoza on board-->help appreciated * Pulmonary: Dr. 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) * Quantiferon gold test positive * Mycobacterium 05/09: no acid fast bacilli seen, culture pending * Mycobacterium 12/16: no acid fast bacilli seen, culture pending * Mycobacterium 05/11: no acid fast bacilli seen, culture pending * Mycobacterium 05/12: 1+ acid fast bacilli seen, culture pending * Patient informed that he will need to continue TB therapy and isolation in the hospital for 6 weeks * We will continue AFB sputum collection MWF starting 05/19 * Continue weights MWF * Active since 05/11/17 * Ethmabutol 400mg PO TID * Isoniazid 300mg PO daily * Prazinamide 1500mg PO daily * Pyridoxine 50mg PO daily * Rifampin 600mg PO daily * Abx: * Primaxin 250mg IVPB Q6H (active since 05/12/17) * Clindamycin 600mg IVPB Q8H (Discontinued) * Florastor 250mg PO BID * HIV 1+2 screening: negative, Hepatitis panel = negative * Blood cultures = no growth * Imaging: * Chest xray on 05/09: Right upper lobe infiltrate with central cavitary lesion ; also appears to be some patchy early infiltrate. * Abd/Pelvis CT on 05/09: No acute abdominal or pelvic abnormality; Constipation; No evidence of bowel obstruction; Multifocal right lower lobe pneumonia. * CT Chest on 05/09: large area of dense consolidation seen throughout a large portion of mid to posterior aspect of right upper lobe with associated prominent air bronchograms. additional prominent areas of scattered consolidative changes and scattered areas of tree-in-bud opacities seen in right middle and lower lobes. concern for acute infectious and inflammatory changes suggestive of multifocal pneumonia. 1cm focal area of nodular consolidation in lateral aspect of left lung apex (series 3, image 28) with scattered areas of consolidative changes seen within mid to inferior aspect of left upper lobe measuring 1cm on series 3, image 60 up to 2.1 cm on series 3 image 60. concerning for multifocal pneumonia. Left paratracheal lymph nodes 1.2 cm Status: Acute (2) Klebsiella pneumonia Assessment & Plan: * Sputum cx from admission grew klebsiella, sensitivites reviewed * Abx: Imipenem 500 mg IV Q6H, Clindamycin 600mg Q8H (discontinued) * Urine strep pneumonia = pending * Urine legionella, mycoplasma = negative * ID consulted, Dr. Espinoza; f/u recommendations * Pulmonology consulted, Dr. Pham; f/u recommendations Status: Acute (3) Black stools Assessment & Plan: * Patient had one episode of black stool 05/11 * Hgb stable * Stool occult blood positive * Resolved * GI consulted, Dr James; Discussed secondary to tuberculosis; no GI intervention at this time Status: Resolved (4) RUQ abdominal pain Assessment & Plan: * Abdominal pain resolved * Abdominal US showed no acute findings * LFTs: normal * Hepatitis panel negative * CT abdomen/pelvis (05/09): no acute abdominal or pelvic abnormality, Constipation. No evidence of bowel obstruction. Multifocal right lower lobe pneumonia Status: Resolved (5) Hypokalemia Assessment & Plan: * Monitor and replete as needed Status: Resolved (6) Prophylactic measure Assessment & Plan: * GI ppx: Pepcid 40mg PO daily * SCDs (No DVT ppx indicated at this time) Status: Acute <Amy Hillman V - Last Filed: 05/14/17 22:05> Objective - Vital Signs/Intake and Output Vital Signs (last 24 hours): Temp Pulse Resp BP Pulse Ox 98.9 F 89 20 105/69 95 05/14/17 16:00 05/14/17 16:00 05/14/17 16:00 05/14/17 16:00 05/14/17 16:00 Intake and Output: 05/14/17 05/15/17 18:59 06:59 Intake Total 100 Balance 100 - Medications Medications: Current Medications Albuterol/Ipratropium (Duoneb 3 Mg/0.5 Mg (3 Ml) Ud) 3 ml INH RQ6 [facility] Last Admin: 05/14/17 19:50 Dose: 3 ml Ethambutol HCl (Myambutol) 400 mg PO TID [facility] Last Admin: 05/14/17 17:53 Dose: 400 mg Famotidine (Pepcid) 40 mg PO DAILY [facility] Last Admin: 05/14/17 09:39 Dose: 40 mg Imipenem/Cilastatin Sodium 250 (mg/ Sodium Chloride) 100 mls @ 100 mls/hr IV Q6H [facility] Isoniazid (Niazid) 300 mg PO DAILY [facility] Last Admin: 05/14/17 09:39 Dose: 300 mg Pyrazinamide (Pyrazinamide) 1,500 mg PO DAILY [facility] Last Admin: 05/14/17 09:39 Dose: 1,500 mg Pyridoxine HCl (Vitamin B6 50 Mg Tab) 50 mg PO DAILY [facility] Last Admin: 05/14/17 09:38 Dose: 50 mg Rifampin (Rifampin Cap) 600 mg PO DAILY [facility] Last Admin: 05/14/17 09:39 Dose: 600 mg Saccharomyces Boulardii (Florastor) 250 mg PO BID [facility] - Labs Labs: 05/14/17 08:12 05/14/17 08:12 PT 15.3 SECONDS (9.7-12.2) H 05/09/17 13:53 INR 1.4 05/09/17 13:53 APTT 31 SECONDS (21-34) 05/09/17 13:53 Attending/Attestation - Attestation I have personally seen and examined this patient.: Yes I have fully participated in the care of the patient.: Yes I have reviewed all pertinent clinical information, including history, physical exam and plan: Yes Notes (Text): Patient seen, examined and case discussed with day-time resident. Patient is placed on respiratory isolation. Patient at bedside had bloody appearing sputum. Patient denies chest pain, reports hemotypsis, reports abdominal pain, denies nausea, denies vomitting, reports black stool yesterday and reports brown stool today and denies headache. Patient reports urine turned orange colored for past couple of days. He is aware that this is a side effect of TB medication. Denies numbness nor tingling. Patient's quanteferon positive and newest (05/12) AFB is positive for AFB. Patient to continue medications per ID for TB. Discussed with ID, repeat AFB once a week to see if TB therapy is effective. Will start 05/19 to start collections at least once a week. Patient is aware he will not be leaving the hospital any time soon. Assessment and Plan (1) Tuberculosis Cavitary lesion of lung Klebsiella Pneumonia Hemotypsis Bandemia Assessment & Plan: Hemoptysis with Right Upper Lobe cavitary lesion Patient on Airborne precautions * Infectious Disease: Dr Espinoza on board-->help appreciated * Pulmonary: Dr. 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) * Positive Quantaferon * Mycobacterium 05/09: no acid fast bacilli seen * Mycobacterium 05/10: no acid fast bacilli seen * Mycobacterium 05/11: no acid fast bacilli seen * Mycobacterium 05/12: Rare 1+ acid fast bacilli seen * Active since 05/11/17 * Ethmabutol 400mg PO TID * Isoniazid 300mg PO daily * Prazinamide 1500mg PO daily * Pyridoxine 50mg PO daily * Rifampin 600mg PO daily * Abx: * Primaxin 250mg IVPB Q6H (active since 05/12/17) * D/C Clindamycin 600mg IVPB Q8H (active since 05/12-) * Florastor 250mg PO BID * HIV 1+2 screening: negative, Hepatitis panel = negative * Blood cultures = no growth for 4 days * Imaging: * Chest xray on 05/09: Right upper lobe infiltrate with central cavitary lesion ; also appears to be some patchy early infiltrate. * Abd/Pelvis CT on 05/09: No acute abdominal or pelvic abnormality; Constipation; No evidence of bowel obstruction; Multifocal right lower lobe pneumonia. * CT Chest on 05/09: large area of dense consolidation seen throughout a large portion of mid to posterior aspect of right upper lobe with associated prominent air bronchograms. additional prominent areas of scattered consolidative changes and scattered areas of tree-in-bud opacities seen in right middle and lower lobes. concern for acute infectious and inflammatory changes suggestive of multifocal pneumonia. 1cm focal area of nodular consolidation in lateral aspect of left lung apex (series 3, image 28) with scattered areas of consolidative changes seen within mid to inferior aspect of left upper lobe measuring 1cm on series 3, image 60 up to 2.1 cm on series 3 image 60. concerning for multifocal pneumonia. Left paratracheal lymph nodes 1.2 cm Status: Acute (3) Black stools Assessment & Plan: * Patient had one episode of black stool 05/11; patient has active tuberculosis * Hgb stable * Stool occult blood positive, likely secondary to hemotypsis * Not currently on anticoagulation or NSAIDs * GI consulted, Dr James; Discussed secondary to tuberculosis; no GI intervention at this time Status: Acute (4) RUQ abdominal pain-->resolved Assessment & Plan: * LFTs: normal * hepatitis panel negative * CT abdomen/pelvis (05/09): no acute abdominal or pelvic abnormality, Constipation. No evidence of bowel obstruction. Multifocal right lower lobe pneumonia * Abdominal US (05/12/17): evaluation of pancreas is obscured by gas in the GI tract however the remainder of examination is unremarkable Status: Acute (5) Hypokalemia Assessment & Plan: * monitor and replete (6) Prophylactic measure Assessment & Plan: * GI ppx: Pepcid 40mg PO daily * SCDs (No DVT ppx indicated at this time) * Florastor 250mg PO BID * Weights MWF Status: Acute
[2017-05-14 09:08] LABS: ALB/GLOB RATIO 1.1 (1.0-2.1); ALBUMIN 3.2 g/dL (3.5-5.0); ALT/SGPT 21 U/L (21-72); AST/SGOT 26 U/L (17-59); BLOOD UREA NITROGEN 10 mg/dL (9-20); CALCIUM 8.2 mg/dl (8.6-10.4); GFR AFRICAN-AMERICAN > 60; GFR NON-AFRICAN AMERICAN > 60
[2017-05-14] MEDS: Saccharomyces Boulardi 250 mg Cap PO SCH (09:39)
[2017-05-15] MEDS: Albuterol-Ipratrop 3 mg / 0.5 (3 ml) UD INH SCH ×4 (02:10→19:02)
[2017-05-15] MEDS: Sodium Chloride 0.9% 1,000 ML IV SCH ×2 (05:48→20:08)
[2017-05-15 06:44] LABS: ALB/GLOB RATIO 1.1 (1.0-2.1); ALBUMIN 3.2 g/dL (3.5-5.0); ALT/SGPT 22 U/L (21-72); AST/SGOT 31 U/L (17-59); BLOOD UREA NITROGEN 10 mg/dL (9-20); CALCIUM 8.2 mg/dl (8.6-10.4); GFR AFRICAN-AMERICAN > 60; GFR NON-AFRICAN AMERICAN > 60; MAGNESIUM 1.8 mg/dL (1.6-2.3)
[2017-05-15 06:58] LABS: BASO % 0.4 % (0.0-2.0); EOS # 0.5 K/uL (0.0-0.7); HEMOGLOBIN 13.2 g/dL (12.0-18.0); LYMPH # 0.8 K/uL (1.0-4.3); LYMPH % 9.4 % (20.0-40.0); MEAN CELL VOLUME 83.4 fL (80.0-94.0); MEAN CORPUSCULAR HEMOGLOBIN 29.7 pg (27.0-31.0); MEAN CORPUSCULAR HGB CONC 35.7 g/dL (33.0-37.0); MEAN PLATELET VOLUME 7.3 fL (7.2-11.7); MONO # 0.7 K/uL (0.0-0.8); MONO % 8.8 % (0.0-10.0); NEUT # 6.4 K/uL (1.8-7.0); NEUT % 75.4 % (50.0-75.0); PLATELET COUNT 346 K/uL (130-400); RBC 4.44 Mil/uL (4.40-5.90); RED CELL DISTRIBUTION WIDTH 12.7 % (11.5-14.5); WHITE BLOOD COUNT 8.5 K/uL (4.8-10.8)
[2017-05-15 08:28] LABS: BANDS 4 % (0-2); EOSINOPHIL 3 % (0-4); LYMPHOCYTE 4 % (20-40); MONOCYTE 11 % (0-10); NEUTROPHIL 78 % (50-75); TOTAL CELLS COUNTED 100
[2017-05-15 08:29] LABS: PLATELET ESTIMATE NORMAL (NORMAL)
[2017-05-15] MEDS: Saccharomyces Boulardi 250 mg Cap PO SCH ×2 (10:03→17:38)
--- NOTE | 2017-05-15 10:56 | CP.PCM.PN ---
<Kristal Perea - Last Filed: 05/15/17 11:45> Subjective - Date & Time of Evaluation Date of Evaluation: 05/15/17 Time of Evaluation: 10:55 - Subjective Subjective: Medicine Progress Note: Hospitalist Service Patient seen and examined at bedside. Per nursing no acute events overnight. Patient is doing well, offers no complaints at this time. Hemoptysis is less today. Ambulating and tolerating diet. Denies headaches, dizziness, F/C, fatigue , cp, palpitations, sob, abdominal pain, urinary symptoms. Objective - Vital Signs/Intake and Output Vital Signs (last 24 hours): Temp Pulse Resp BP Pulse Ox 98 F 96 H 20 97/61 L 93 L 05/15/17 07:58 05/15/17 07:58 05/15/17 07:58 05/15/17 07:58 05/15/17 07:58 Intake and Output: 05/15/17 05/15/17 06:59 18:59 Intake Total 710 Balance 710 - Medications Medications: Current Medications Albuterol/Ipratropium (Duoneb 3 Mg/0.5 Mg (3 Ml) Ud) 3 ml INH RQ6 [facility] Last Admin: 05/15/17 08:09 Dose: 3 ml Ethambutol HCl (Myambutol) 400 mg PO TID [facility] Last Admin: 05/15/17 10:02 Dose: 400 mg Famotidine (Pepcid) 40 mg PO DAILY [facility] Last Admin: 05/15/17 10:02 Dose: 40 mg Imipenem/Cilastatin Sodium 250 (mg/ Sodium Chloride) 100 mls @ 100 mls/hr IV Q6H [facility] Last Admin: 05/15/17 05:45 Dose: 100 mls/hr Isoniazid (Niazid) 300 mg PO DAILY [facility] Last Admin: 05/15/17 10:02 Dose: 300 mg Pyrazinamide (Pyrazinamide) 1,500 mg PO DAILY [facility] Last Admin: 05/15/17 10:03 Dose: 1,500 mg Pyridoxine HCl (Vitamin B6 50 Mg Tab) 50 mg PO DAILY [facility] Last Admin: 05/15/17 10:03 Dose: 50 mg Rifampin (Rifampin Cap) 600 mg PO DAILY [facility] Last Admin: 05/15/17 10:02 Dose: 600 mg Saccharomyces Boulardii (Florastor) 250 mg PO BID [facility] Last Admin: 05/15/17 10:03 Dose: 250 mg - Labs Labs: 05/15/17 06:12 05/15/17 06:12 PT 15.3 SECONDS (9.7-12.2) H 05/09/17 13:53 INR 1.4 05/09/17 13:53 APTT 31 SECONDS (21-34) 05/09/17 13:53 - Constitutional Appears: Well, No Acute Distress - Head Exam Head Exam: ATRAUMATIC, NORMAL INSPECTION - Eye Exam Eye Exam: EOMI, Normal appearance - ENT Exam ENT Exam: Mucous Membranes Moist - Neck Exam Neck Exam: Full ROM - Respiratory Exam Respiratory Exam: Clear to Ausculation Bilateral, NORMAL BREATHING PATTERN. absent: Rales, Rhonchi, Wheezes - Cardiovascular Exam Cardiovascular Exam: REGULAR RHYTHM, +S1, +S2 - GI/Abdominal Exam GI & Abdominal Exam: Soft, Normal Bowel Sounds. absent: Guarding, Rigid, Tenderness - Back Exam Back Exam: NORMAL INSPECTION - Neurological Exam Neurological Exam: Alert, Awake, Normal Gait, Oriented x3 - Psychiatric Exam Psychiatric exam: Normal Affect, Normal Mood - Skin Skin Exam: Dry, Normal Color, Warm Assessment and Plan (1) Cavitary lesion of lung Assessment & Plan: * Hemoptysis with Right Upper Lobe cavitary lesion * Patient on Airborne precautions * Infectious Disease: Dr Espinoza on board-->help appreciated * Pulmonary: Dr. 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) * Quantiferon gold test positive * Mycobacterium 12/15: no acid fast bacilli seen, culture pending * Mycobacterium 12/16: no acid fast bacilli seen, culture pending * Mycobacterium 12/17: no acid fast bacilli seen, culture pending * Mycobacterium 12/18: Rare 1+ acid fast bacilli seen, culture pending * Patient informed that he will need to continue TB therapy and isolation in the hospital for at least 4-6 weeks * We will continue AFB sputum collection weekly starting 05/19 * Case management referral for chest clinic in progress, State has also been notified * Thoracic evaluation ordered for lung abscess and TB * Active since 05/11/17 * Ethmabutol 400mg PO TID * Isoniazid 300mg PO daily * Prazinamide 1500mg PO daily * Pyridoxine 50mg PO daily * Rifampin 600mg PO daily * Abx: * Primaxin 250mg IVPB Q6H (active since 05/12/17) * Clindamycin 600mg IVPB Q8H (Discontinued) * Florastor 250mg PO BID * HIV 1+2 screening: negative, Hepatitis panel = negative * Blood cultures = no growth * Imaging: * Chest xray on 05/09: Right upper lobe infiltrate with central cavitary lesion ; also appears to be some patchy early infiltrate. * Abd/Pelvis CT on 05/09: No acute abdominal or pelvic abnormality; Constipation; No evidence of bowel obstruction; Multifocal right lower lobe pneumonia. * CT Chest on 05/09: large area of dense consolidation seen throughout a large portion of mid to posterior aspect of right upper lobe with associated prominent air bronchograms. additional prominent areas of scattered consolidative changes and scattered areas of tree-in-bud opacities seen in right middle and lower lobes. concern for acute infectious and inflammatory changes suggestive of multifocal pneumonia. 1cm focal area of nodular consolidation in lateral aspect of left lung apex (series 3, image 28) with scattered areas of consolidative changes seen within mid to inferior aspect of left upper lobe measuring 1cm on series 3, image 60 up to 2.1 cm on series 3 image 60. concerning for multifocal pneumonia. Left paratracheal lymph nodes 1.2 cm Status: Acute (2) Klebsiella pneumonia Assessment & Plan: * Patient had one episode of black stool 05/11; patient has active tuberculosis * Hgb stable * Stool occult blood positive, likely secondary to hemotypsis * Not currently on anticoagulation or NSAIDs * GI consulted, Dr James; Discussed secondary to tuberculosis; no GI intervention at this time Status: Acute (3) Black stools Assessment & Plan: * Patient had one episode of black stool 05/11 * Hgb stable * Stool occult blood positive * Resolved * GI consulted, Dr James; Discussed secondary to tuberculosis; no GI intervention at this time Status: Resolved (4) RUQ abdominal pain Assessment & Plan: * Abdominal pain resolved * Abdominal US showed no acute findings * LFTs: normal * Hepatitis panel negative * CT abdomen/pelvis (05/09): no acute abdominal or pelvic abnormality, Constipation. No evidence of bowel obstruction. Multifocal right lower lobe pneumonia Status: Resolved (5) Hypokalemia Assessment & Plan: Monitor and replete as needed Status: Resolved (6) Prophylactic measure Assessment & Plan: * GI ppx: Pepcid 40mg PO daily * SCDs (No DVT ppx indicated at this time) * Daily weight MWF Status: Acute <Amy Hillman V - Last Filed: 05/15/17 17:37> Objective - Vital Signs/Intake and Output Vital Signs (last 24 hours): Temp Pulse Resp BP Pulse Ox 98.8 F 94 H 18 95/58 L 96 05/15/17 16:33 05/15/17 16:33 05/15/17 16:33 05/15/17 16:33 05/15/17 16:33 Intake and Output: 05/15/17 05/15/17 06:59 18:59 Intake Total 710 1280 Balance 710 1280 - Medications Medications: Current Medications Albuterol/Ipratropium (Duoneb 3 Mg/0.5 Mg (3 Ml) Ud) 3 ml INH RQ6 [facility] Last Admin: 05/15/17 14:09 Dose: 3 ml Ethambutol HCl (Myambutol) 400 mg PO TID [facility] Last Admin: 05/15/17 13:25 Dose: 400 mg Famotidine (Pepcid) 40 mg PO DAILY [facility] Last Admin: 05/15/17 10:02 Dose: 40 mg Imipenem/Cilastatin Sodium 250 (mg/ Sodium Chloride) 100 mls @ 100 mls/hr IV Q6H [facility] Last Admin: 05/15/17 13:25 Dose: 100 mls/hr Isoniazid (Niazid) 300 mg PO DAILY [facility] Last Admin: 05/15/17 10:02 Dose: 300 mg Pyrazinamide (Pyrazinamide) 1,500 mg PO DAILY [facility] Last Admin: 05/15/17 10:03 Dose: 1,500 mg Pyridoxine HCl (Vitamin B6 50 Mg Tab) 50 mg PO DAILY [facility] Last Admin: 05/15/17 10:03 Dose: 50 mg Rifampin (Rifampin Cap) 600 mg PO DAILY [facility] Last Admin: 05/15/17 10:02 Dose: 600 mg Saccharomyces Boulardii (Florastor) 250 mg PO BID [facility] Last Admin: 05/15/17 10:03 Dose: 250 mg - Labs Labs: 05/15/17 06:12 05/15/17 06:12 PT 15.3 SECONDS (9.7-12.2) H 05/09/17 13:53 INR 1.4 05/09/17 13:53 APTT 31 SECONDS (21-34) 05/09/17 13:53 Attending/Attestation - Attestation I have personally seen and examined this patient.: Yes I have fully participated in the care of the patient.: Yes I have reviewed all pertinent clinical information, including history, physical exam and plan: Yes Notes (Text): Patient seen, examined and case discussed with day-time resident. Patient is placed on respiratory isolation. Patient at bedside had bloody appearing sputum, but is less. Patient denies chest pain, reports hemotypsis, reports abdominal pain, denies nausea, denies vomitting, reports black stool yesterday and reports brown stool today and denies headache. Patient reports urine turned orange colored for past couple of days. He is aware that this is a side effect of TB medication. Denies numbness nor tingling. Patient's quanteferon positive and newest (05/12) AFB is positive for AFB. Patient to continue medications per ID for TB. Discussed with ID, repeat AFB once a week to see if TB therapy is effective. Will start 05/19 to start collections at least once a week. Patient is aware he will not be leaving the hospital any time soon. Discussed with case management, chest clinic is already informed, ID Nurse, Lindsey [place] is aware. Consult: Thoracic Surgery on board Assessment and Plan (1) Tuberculosis Cavitary lesion of lung Klebsiella Pneumonia Hemotypsis Bandemia Assessment & Plan: Hemoptysis with Right Upper Lobe cavitary lesion Patient on Airborne precautions * Infectious Disease: Dr Espinoza on board-->help appreciated * Pulmonary: Dr. Moran on board-->help appreciated * Thoracic surgery: Dr. Kate-->help appreciated * 1st line treatment for any lung abscess regardless of etiology is abx, 95% will resolve with this alone; this will be our recommendation. If abscess fails to resolve can consider CT-guided drainage with IR - but currently not indicated. Surgery is reserved for if the above mgmt fails, cannot rule out cancer, if abscess is >6cm and fails to resolve after 6 weeks, of it pt is exsanguinating from the hemoptysis. 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) * Positive Quantaferon * Mycobacterium 05/09: no acid fast bacilli seen * Mycobacterium 12/16: no acid fast bacilli seen * Mycobacterium 05/11: no acid fast bacilli seen * Mycobacterium 05/12: Rare 1+ acid fast bacilli seen * Active since 05/11/17 * Ethmabutol 400mg PO TID * Isoniazid 300mg PO daily * Prazinamide 1500mg PO daily * Pyridoxine 50mg PO daily * Rifampin 600mg PO daily * Abx: * Primaxin 250mg IVPB Q6H (active since 05/12/17) * D/C Clindamycin 600mg IVPB Q8H (active since 05/12-) * Florastor 250mg PO BID * HIV 1+2 screening: negative, Hepatitis panel = negative * Blood cultures = no growth for 4 days * Imaging: * Chest xray on 05/09: Right upper lobe infiltrate with central cavitary lesion ; also appears to be some patchy early infiltrate. * Abd/Pelvis CT on 05/09: No acute abdominal or pelvic abnormality; Constipation; No evidence of bowel obstruction; Multifocal right lower lobe pneumonia. * CT Chest on 05/09: large area of dense consolidation seen throughout a large portion of mid to posterior aspect of right upper lobe with associated prominent air bronchograms. additional prominent areas of scattered consolidative changes and scattered areas of tree-in-bud opacities seen in right middle and lower lobes. concern for acute infectious and inflammatory changes suggestive of multifocal pneumonia. 1cm focal area of nodular consolidation in lateral aspect of left lung apex (series 3, image 28) with scattered areas of consolidative changes seen within mid to inferior aspect of left upper lobe measuring 1cm on series 3, image 60 up to 2.1 cm on series 3 image 60. concerning for multifocal pneumonia. Left paratracheal lymph nodes 1.2 cm Status: Acute (3) Black stools Assessment & Plan: * Patient had one episode of black stool 05/11; patient has active tuberculosis * Hgb stable * Stool occult blood positive, likely secondary to hemotypsis * Not currently on anticoagulation or NSAIDs * GI consulted, Dr James; Discussed secondary to tuberculosis; no GI intervention at this time Status: Acute (4) RUQ abdominal pain-->resolved Assessment & Plan: * LFTs: normal * hepatitis panel negative * CT abdomen/pelvis (05/09): no acute abdominal or pelvic abnormality, Constipation. No evidence of bowel obstruction. Multifocal right lower lobe pneumonia * Abdominal US (05/12/17): evaluation of pancreas is obscured by gas in the GI tract however the remainder of examination is unremarkable Status: Acute (5) Hypokalemia Assessment & Plan: * monitor and replete (6) Prophylactic measure Assessment & Plan: * GI ppx: Pepcid 40mg PO daily * SCDs (No DVT ppx indicated at this time) * Florastor 250mg PO BID * Weights MWF Status: Acute
--- NOTE | 2017-05-15 13:30 | CP.PCM.CON ---
History of Present Illness - History of Present Illness History of Present Illness: CT Surgery: Dr Kate Pt is a 22M from [facility] who has been living in the for 6 years. Pt came to for evaluation of hemoptysis. Found to have TB. Pt states prior to this event he has not hemoptysis or any respiratory symptoms before. CT surgery consulted for evaluation of right lung abscess. HgB remains stable. Denies any fevers or chills though he was having chills before. Fecal Occult positive attributed to likely swallowing blood. Review of Systems - Review of Systems All systems: reviewed and no additional remarkable complaints except (as per hpi ) Past Patient History - Past Medical History & Family History Past Medical History?: No - Past Social History Smoking Status: Never Smoked Alcohol: None - CARDIAC Hx Cardiac Disorders: No - PULMONARY Hx Respiratory Disorders: No - NEUROLOGICAL Hx Neurological Disorder: No - HEENT Hx HEENT Problems: No - RENAL Hx Chronic Kidney Disease: No - ENDOCRINE/METABOLIC Hx Endocrine Disorders: No - HEMATOLOGICAL/ONCOLOGICAL Hx Blood Disorders: No - INTEGUMENTARY Hx Dermatological Problems: No - MUSCULOSKELETAL/RHEUMATOLOGICAL Hx Musculoskeletal Disorders: No Hx Falls: No - GASTROINTESTINAL Hx Gastrointestinal Disorders: No - GENITOURINARY/GYNECOLOGICAL Hx Genitourinary Disorders: No - PSYCHIATRIC Hx Substance Use: No - SURGICAL HISTORY Hx Surgeries: No - ANESTHESIA Hx Anesthesia: No Hx Anesthesia Reactions: No Meds Allergies/Adverse Reactions: Allergies Allergy/AdvReac Type Severity Reaction Status Date / Time No Known Allergies Allergy Unverified 05/09/17 12:36 - Medications Medications: Current Medications Albuterol/Ipratropium (Duoneb 3 Mg/0.5 Mg (3 Ml) Ud) 3 ml INH RQ6 [facility] Last Admin: 05/15/17 08:09 Dose: 3 ml Ethambutol HCl (Myambutol) 400 mg PO TID [facility] Last Admin: 05/15/17 13:25 Dose: 400 mg Famotidine (Pepcid) 40 mg PO DAILY [facility] Last Admin: 05/15/17 10:02 Dose: 40 mg Imipenem/Cilastatin Sodium 250 (mg/ Sodium Chloride) 100 mls @ 100 mls/hr IV Q6H [facility] Last Admin: 05/15/17 13:25 Dose: 100 mls/hr Isoniazid (Niazid) 300 mg PO DAILY [facility] Last Admin: 05/15/17 10:02 Dose: 300 mg Pyrazinamide (Pyrazinamide) 1,500 mg PO DAILY [facility] Last Admin: 05/15/17 10:03 Dose: 1,500 mg Pyridoxine HCl (Vitamin B6 50 Mg Tab) 50 mg PO DAILY [facility] Last Admin: 05/15/17 10:03 Dose: 50 mg Rifampin (Rifampin Cap) 600 mg PO DAILY [facility] Last Admin: 05/15/17 10:02 Dose: 600 mg Saccharomyces Boulardii (Florastor) 250 mg PO BID [facility] Last Admin: 05/15/17 10:03 Dose: 250 mg Physical Exam - Constitutional Appears: Non-toxic, No Acute Distress - ENT Exam ENT Exam: Mucous Membranes Moist - Respiratory Exam Respiratory Exam: absent: Respiratory Distress - Cardiovascular Exam Cardiovascular Exam: REGULAR RHYTHM. absent: Tachycardia - GI/Abdominal Exam GI & Abdominal Exam: Soft. absent: Tenderness Results - Vital Signs Recent Vital Signs: Last Vital Signs Temp 98.3 F 05/15/17 12:50 Pulse 95 H 05/15/17 12:50 Resp 20 05/15/17 12:50 BP 94/60 L 05/15/17 12:50 Pulse Ox 95 05/15/17 12:50 - Labs Result Diagrams: 05/15/17 06:12 05/15/17 06:12 Labs: Laboratory Results - last 24 hr 05/15/17 05/15/17 06:12 06:12 WBC 8.5 RBC 4.44 Hgb 13.2 Hct 37.1 MCV 83.4 MCH 29.7 MCHC 35.7 RDW 12.7 Plt Count 346 MPV 7.3 Neut % (Auto) 75.4 H Lymph % (Auto) 9.4 L [place] % (Auto) 8.8 Eos % (Auto) 6.0 H Baso % (Auto) 0.4 Neut # 6.4 Lymph # 0.8 L [place] # 0.7 Eos # 0.5 Baso # 0.0 Neutrophils % (Manual) 78 H Band Neutrophils % 4 H Lymphocytes % (Manual) 4 L Monocytes % (Manual) 11 H Eosinophils % (Manual) 3 Platelet Estimate Normal RBC Morphology Normal Sodium 132 Potassium 4.2 Chloride 100 Carbon Dioxide 26 Anion Gap 11 BUN 10 Creatinine 0.8 Est GFR ( Amer) > 60 Est GFR (Non-Af Amer) > 60 Random Glucose 97 Calcium 8.2 L Phosphorus 3.4 Magnesium 1.8 Total Bilirubin 0.6 AST 31 ALT 22 Alkaline Phosphatase 76 Total Protein 6.2 L Albumin 3.2 L Globulin 3.0 Albumin/Globulin Ratio 1.1 Assessment & Plan - Assessment and Plan (Free Text) Assessment: 22M with TB, right-sided lung abscess and hemoptysis Plan: 1st line treatment for any lung abscess regardless of etiology is abx, 95% will resolve with this alone; this will be our recommendation if abscess fails to resolve can consider CT-guided drainage with IR - but currently not indicated Surgery is reserved for if the above mgmt fails, cannot rule out cancer, if abscess is >6cm and fails to resolve after 6 weeks, of it pt is exsanguinating from the hemoptysis no intervention planned, please reconsult as necessary d/w Dr Kate who will evaluate the pt [place] Ta, PGY3
[2017-05-16] MEDS: Albuterol-Ipratrop 3 mg / 0.5 (3 ml) UD INH SCH ×4 (01:45→19:12)
[2017-05-16 07:38] LABS: BASO # 0.1 K/uL (0.0-0.2); BASO % 0.7 % (0.0-2.0); EOS # 0.7 K/uL (0.0-0.7); EOS % 7.3 % (0.0-4.0); HEMOGLOBIN 13.2 g/dL (12.0-18.0); LYMPH # 0.8 K/uL (1.0-4.3); LYMPH % 8.7 % (20.0-40.0); MEAN CELL VOLUME 83.8 fL (80.0-94.0); MEAN CORPUSCULAR HEMOGLOBIN 29.7 pg (27.0-31.0); MEAN CORPUSCULAR HGB CONC 35.5 g/dL (33.0-37.0); MEAN PLATELET VOLUME 7.2 fL (7.2-11.7); MONO # 0.8 K/uL (0.0-0.8); MONO % 8.4 % (0.0-10.0); NEUT # 7.3 K/uL (1.8-7.0); NEUT % 74.9 % (50.0-75.0); NRBC % 0.1 % (0.0-2.0); PLATELET COUNT 388 K/uL (130-400); RBC 4.43 Mil/uL (4.40-5.90); RED CELL DISTRIBUTION WIDTH 12.3 % (11.5-14.5); WHITE BLOOD COUNT 9.7 K/uL (4.8-10.8)
--- NOTE | 2017-05-16 07:39 | CP.PCM.PN ---
<Kristal Perea - Last Filed: 05/16/17 13:23> Subjective - Date & Time of Evaluation Date of Evaluation: 05/16/17 Time of Evaluation: 07:37 - Subjective Subjective: Medicine Progress Note: Hospitalist Service Patient seen and examined at bedside. Per nursing no acute events overnight. Patient is doing well, offers no complaints at this time. Last episode of hemoptysis was yesterday morning. Ambulating and tolerating diet. States that his urine is clear. Denies headaches, dizziness, visual changes, cp, palpitations, sob, abdominal pain, urinary symptoms, changes in bowel habits. Objective - Vital Signs/Intake and Output Vital Signs (last 24 hours): Temp Pulse Resp BP Pulse Ox 99 F 91 H 18 94/58 L 98 05/16/17 00:00 05/16/17 00:00 05/16/17 00:00 05/16/17 00:00 05/16/17 00:00 - Medications Medications: Current Medications Albuterol/Ipratropium (Duoneb 3 Mg/0.5 Mg (3 Ml) Ud) 3 ml INH RQ6 [facility] Last Admin: 05/16/17 01:45 Dose: Not Given Ethambutol HCl (Myambutol) 400 mg PO TID [facility] Last Admin: 05/15/17 17:38 Dose: 400 mg Famotidine (Pepcid) 40 mg PO DAILY [facility] Last Admin: 05/15/17 10:02 Dose: 40 mg Imipenem/Cilastatin Sodium 250 (mg/ Sodium Chloride) 100 mls @ 100 mls/hr IV Q6H [facility] Last Admin: 05/16/17 07:20 Dose: 100 mls/hr Isoniazid (Niazid) 300 mg PO DAILY [facility] Last Admin: 05/15/17 10:02 Dose: 300 mg Pyrazinamide (Pyrazinamide) 1,500 mg PO DAILY [facility] Last Admin: 05/15/17 10:03 Dose: 1,500 mg Pyridoxine HCl (Vitamin B6 50 Mg Tab) 50 mg PO DAILY [facility] Last Admin: 05/15/17 10:03 Dose: 50 mg Rifampin (Rifampin Cap) 600 mg PO DAILY [facility] Last Admin: 05/15/17 10:02 Dose: 600 mg Saccharomyces Boulardii (Florastor) 250 mg PO BID [facility] Last Admin: 05/15/17 17:38 Dose: 250 mg - Labs Labs: 05/15/17 06:12 05/15/17 06:12 PT 15.3 SECONDS (9.7-12.2) H 05/09/17 13:53 INR 1.4 05/09/17 13:53 APTT 31 SECONDS (21-34) 05/09/17 13:53 - Constitutional Appears: Well, No Acute Distress - Head Exam Head Exam: ATRAUMATIC, NORMAL INSPECTION - Eye Exam Eye Exam: EOMI, Normal appearance - ENT Exam ENT Exam: Mucous Membranes Moist - Neck Exam Neck Exam: Full ROM - Respiratory Exam Respiratory Exam: Clear to Ausculation Bilateral, NORMAL BREATHING PATTERN. absent: Rales, Rhonchi, Wheezes - Cardiovascular Exam Cardiovascular Exam: REGULAR RHYTHM, +S1, +S2 - GI/Abdominal Exam GI & Abdominal Exam: Soft, Normal Bowel Sounds. absent: Distended, Firm, Rigid , Tenderness - Extremities Exam Extremities Exam: Normal Inspection. absent: Calf Tenderness, Pedal Edema Additional comments: +SCDs - Neurological Exam Neurological Exam: Alert, Awake, CN II-XII Intact, Oriented x3 - Psychiatric Exam Psychiatric exam: Normal Affect, Normal Mood - Skin Skin Exam: Dry, Normal Color, Warm Assessment and Plan (1) Cavitary lesion of lung Assessment & Plan: * Hemoptysis with Right Upper Lobe cavitary lesion * Patient on Airborne precautions * Infectious Disease: Dr Espinoza on board-->help appreciated * Pulmonary: Dr. 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) * Quantiferon gold test positive * Mycobacterium 12/15: no acid fast bacilli seen, culture pending * Mycobacterium 12/16: no acid fast bacilli seen, culture pending * Mycobacterium 12/17: no acid fast bacilli seen, culture pending * Mycobacterium 12/18: Rare 1+ acid fast bacilli seen, culture pending * Patient informed that he will need to continue TB therapy and isolation in the hospital for at least 4-6 weeks * We will continue AFB sputum collection weekly starting 05/19 * Case management referral for chest clinic in progress, State has also been notified * Thoracic surgery consulted, Dr Kate, help appreciated * No surgical intervention at this time. Recommending to continue with IV antibiotics * Active since 05/11/17 * Ethmabutol 400mg PO TID * Isoniazid 300mg PO daily * Prazinamide 1500mg PO daily * Pyridoxine 50mg PO daily * Rifampin 600mg PO daily * Abx: * Primaxin 250mg IVPB Q6H (active since 05/12/17) * Clindamycin 600mg IVPB Q8H (Discontinued) * Florastor 250mg PO BID * HIV 1+2 screening: negative, Hepatitis panel = negative * Blood cultures = no growth * Imaging: * Chest xray on 05/09: Right upper lobe infiltrate with central cavitary lesion ; also appears to be some patchy early infiltrate. * Abd/Pelvis CT on 05/09: No acute abdominal or pelvic abnormality; Constipation; No evidence of bowel obstruction; Multifocal right lower lobe pneumonia. * CT Chest on 05/09: large area of dense consolidation seen throughout a large portion of mid to posterior aspect of right upper lobe with associated prominent air bronchograms. additional prominent areas of scattered consolidative changes and scattered areas of tree-in-bud opacities seen in right middle and lower lobes. concern for acute infectious and inflammatory changes suggestive of multifocal pneumonia. 1cm focal area of nodular consolidation in lateral aspect of left lung apex (series 3, image 28) with scattered areas of consolidative changes seen within mid to inferior aspect of left upper lobe measuring 1cm on series 3, image 60 up to 2.1 cm on series 3 image 60. concerning for multifocal pneumonia. Left paratracheal lymph nodes 1.2 cm Status: Acute (2) Klebsiella pneumonia Assessment & Plan: * Sputum cx from admission grew klebsiella, sensitivites reviewed * Abx: Imipenem 500 mg IV Q6H, Clindamycin 600mg Q8H (discontinued) * Urine strep pneumonia = pending * Urine legionella, mycoplasma = negative * ID consulted, Dr. Espinoza; f/u recommendations * Pulmonology consulted, Dr. Pham; f/u recommendations * Status: Acute (3) Weight loss, unintentional Assessment & Plan: * Weight loss 61kg from admission to 56 kg * Will Continue weights MWF * Calorie count ordered * Technical Education [employer] referral placed * Continue to monitor and assess need for diet supplementation Status: Acute (4) Black stools Assessment & Plan: * Patient had one episode of black stool 05/11; patient has active tuberculosis * Hgb stable * Stool occult blood positive, likely secondary to hemotypsis * Not currently on anticoagulation or NSAIDs * GI consulted, Dr James; Discussed secondary to tuberculosis; no GI intervention at this time * Status: Resolved (5) RUQ abdominal pain Assessment & Plan: * Abdominal pain resolved * Abdominal US showed no acute findings * LFTs: normal * Hepatitis panel negative * CT abdomen/pelvis (05/09): no acute abdominal or pelvic abnormality, Constipation. No evidence of bowel obstruction. Multifocal right lower lobe pneumonia Status: Resolved (6) Hypokalemia Assessment & Plan: * Will monitor and replete as needed Status: Resolved (7) Prophylactic measure Assessment & Plan: * GI ppx: Pepcid 40mg PO daily * SCDs (No DVT ppx indicated at this time) * Daily weight MWF Status: Acute <Amy Hillman V - Last Filed: 05/18/17 19:56> Objective - Vital Signs/Intake and Output Vital Signs (last 24 hours): Temp Pulse Resp BP Pulse Ox 98.3 F 94 H 20 102/65 95 05/18/17 15:15 05/18/17 15:15 05/18/17 15:15 05/18/17 15:15 05/18/17 15:15 Intake and Output: 05/18/17 05/19/17 18:59 06:59 Intake Total 500 Balance 500 - Medications Medications: Current Medications Albuterol/Ipratropium (Duoneb 3 Mg/0.5 Mg (3 Ml) Ud) 3 ml INH RQ6 [facility] Last Admin: 05/18/17 19:34 Dose: 3 ml Ethambutol HCl (Myambutol) 400 mg PO TID [facility] Last Admin: 05/18/17 18:27 Dose: 400 mg Famotidine (Pepcid) 40 mg PO DAILY [facility] Last Admin: 05/18/17 09:26 Dose: 40 mg Imipenem/Cilastatin Sodium 250 (mg/ Sodium Chloride) 100 mls @ 100 mls/hr IV Q6H [facility] Last Admin: 05/18/17 18:27 Dose: 100 mls/hr Isoniazid (Niazid) 300 mg PO DAILY [facility] Last Admin: 05/18/17 09:26 Dose: 300 mg Pyrazinamide (Pyrazinamide) 1,500 mg PO DAILY [facility] Last Admin: 05/18/17 09:26 Dose: 1,500 mg Pyridoxine HCl (Vitamin B6 50 Mg Tab) 50 mg PO DAILY [facility] Last Admin: 05/18/17 09:26 Dose: 50 mg Rifampin (Rifampin Cap) 600 mg PO DAILY [facility] Last Admin: 05/18/17 09:26 Dose: 600 mg Saccharomyces Boulardii (Florastor) 250 mg PO BID [facility] Last Admin: 05/18/17 18:27 Dose: 250 mg - Labs Labs: 05/17/17 08:15 05/17/17 08:15 PT 15.3 SECONDS (9.7-12.2) H 05/09/17 13:53 INR 1.4 05/09/17 13:53 APTT 31 SECONDS (21-34) 05/09/17 13:53 Attending/Attestation - Attestation I have personally seen and examined this patient.: Yes I have fully participated in the care of the patient.: Yes I have reviewed all pertinent clinical information, including history, physical exam and plan: Yes Notes (Text): This is a late computer entry for 05/16/17. Patient seen, examined, and case discussed with day-time resident. Patient does not have any further episodes of hemoptysis. Patient noted to have unintentional weight loss secondary to tuberculosis. We will continue with RIPE therapy. Assessment and Plan (1) Tuberculosis Cavitary lesion of lung Klebsiella Pneumonia Hemotypsis Bandemia Assessment & Plan: Hemoptysis with Right Upper Lobe cavitary lesion Patient on Airborne precautions * Infectious Disease: Dr Espinoza on board-->help appreciated * Pulmonary: Dr. Moran on board-->help appreciated * Thoracic surgery: Dr. Kate-->help appreciated * 1st line treatment for any lung abscess regardless of etiology is abx, 95% will resolve with this alone; this will be our recommendation. If abscess fails to resolve can consider CT-guided drainage with IR - but currently not indicated. Surgery is reserved for if the above mgmt fails, cannot rule out cancer, if abscess is >6cm and fails to resolve after 6 weeks, of it pt is exsanguinating from the hemoptysis. 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) * Positive Quantaferon * Mycobacterium 05/09: no acid fast bacilli seen * Mycobacterium 05/10: no acid fast bacilli seen * Mycobacterium 05/11: no acid fast bacilli seen * Mycobacterium 05/12: Rare 1+ acid fast bacilli seen * Active since 05/11/17 * Ethmabutol 400mg PO TID * Isoniazid 300mg PO daily * Prazinamide 1500mg PO daily * Pyridoxine 50mg PO daily * Rifampin 600mg PO daily * Abx: * Primaxin 250mg IVPB Q6H (active since 05/12/17) * D/C Clindamycin 600mg IVPB Q8H (active since 05/12-) * Florastor 250mg PO BID * HIV 1+2 screening: negative, Hepatitis panel = negative * Blood cultures = no growth for 4 days * Imaging: * Chest xray on 05/09: Right upper lobe infiltrate with central cavitary lesion ; also appears to be some patchy early infiltrate. * Abd/Pelvis CT on 05/09: No acute abdominal or pelvic abnormality; Constipation; No evidence of bowel obstruction; Multifocal right lower lobe pneumonia. * CT Chest on 05/09: large area of dense consolidation seen throughout a large portion of mid to posterior aspect of right upper lobe with associated prominent air bronchograms. additional prominent areas of scattered consolidative changes and scattered areas of tree-in-bud opacities seen in right middle and lower lobes. concern for acute infectious and inflammatory changes suggestive of multifocal pneumonia. 1cm focal area of nodular consolidation in lateral aspect of left lung apex (series 3, image 28) with scattered areas of consolidative changes seen within mid to inferior aspect of left upper lobe measuring 1cm on series 3, image 60 up to 2.1 cm on series 3 image 60. concerning for multifocal pneumonia. Left paratracheal lymph nodes 1.2 cm Status: Acute (3) Black stools Assessment & Plan: * Patient had one episode of black stool 05/11; patient has active tuberculosis * Hgb stable * Stool occult blood positive, likely secondary to hemotypsis * Not currently on anticoagulation or NSAIDs * GI consulted, Dr James; Discussed secondary to tuberculosis; no GI intervention at this time Status: Acute (4) RUQ abdominal pain-->resolved Assessment & Plan: * LFTs: normal * hepatitis panel negative * CT abdomen/pelvis (05/09): no acute abdominal or pelvic abnormality, Constipation. No evidence of bowel obstruction. Multifocal right lower lobe pneumonia * Abdominal US (05/12/17): evaluation of pancreas is obscured by gas in the GI tract however the remainder of examination is unremarkable Status: Acute (5) Hypokalemia Assessment & Plan: * monitor and replete (6) Prophylactic measure Assessment & Plan: * GI ppx: Pepcid 40mg PO daily * SCDs (No DVT ppx indicated at this time) * Florastor 250mg PO BID * Weights MWF Status: Acute
[2017-05-16 08:50] LABS: ALB/GLOB RATIO 0.8 (1.0-2.1); ALBUMIN 3.3 g/dL (3.5-5.0); ALT/SGPT 27 U/L (21-72); AST/SGOT 26 U/L (17-59); BLOOD UREA NITROGEN 9 mg/dL (9-20); CALCIUM 8.2 mg/dl (8.6-10.4); GFR AFRICAN-AMERICAN > 60; GFR NON-AFRICAN AMERICAN > 60
[2017-05-16] MEDS: Saccharomyces Boulardi 250 mg Cap PO SCH ×2 (09:25→17:25)
[2017-05-16 09:54] LABS: BANDS 2 % (0-2); EOSINOPHIL 8 % (0-4); LYMPHOCYTE 10 % (20-40); MONOCYTE 9 % (0-10); NEUTROPHIL 71 % (50-75); PLATELET ESTIMATE NORMAL (NORMAL); TOTAL CELLS COUNTED 100
--- NOTE | 2017-05-16 14:10 | CP.PCM.PN ---
Subjective - Date & Time of Evaluation Date of Evaluation: 05/16/17 Time of Evaluation: 13:53 - Subjective Subjective: Reason for consultaion: Lung abscess, TBC, and Hemoptysis. Requested by Dr. Lorraine Ngo Pt s/e at bedside, imaging studies, and progress notes reviewed. 22 yo male presented to ER with recent hx of hemoptysis and wt loss.. ROSEN[place]UM so far shows: + TB in the sputum. Hemoptysis is receding. CT chest: 3cm and 1cm cavitary lesions in right upper lobe + cosolidaton. Infiltrates and consolidation in right middle and lower lobes. Infiltrates in left upper lobe and lingular segment of left upper lobe. a/p: 1. Acute cavitary lesions, right upper lobe and consolidation. 2.Consolidations-right middle and lower lobe and left upper lobe and lingular seg. 3. Hemoptysis-receding. 4. Continue antibiotics+anti-TB meds in consultation with ID. 5. Will follow peripherally. Objective - Vital Signs/Intake and Output Vital Signs (last 24 hours): Temp Pulse Resp BP Pulse Ox 98.9 F 88 20 102/66 98 05/16/17 07:55 05/16/17 07:55 05/16/17 07:55 05/16/17 07:55 05/16/17 07:55 - Medications Medications: Current Medications Albuterol/Ipratropium (Duoneb 3 Mg/0.5 Mg (3 Ml) Ud) 3 ml INH RQ6 [facility] Last Admin: 05/16/17 13:34 Dose: 3 ml Ethambutol HCl (Myambutol) 400 mg PO TID [facility] Last Admin: 05/16/17 13:01 Dose: 400 mg Famotidine (Pepcid) 40 mg PO DAILY [facility] Last Admin: 05/16/17 09:25 Dose: 40 mg Imipenem/Cilastatin Sodium 250 (mg/ Sodium Chloride) 100 mls @ 100 mls/hr IV Q6H [facility] Last Admin: 05/16/17 12:08 Dose: 100 mls/hr Isoniazid (Niazid) 300 mg PO DAILY [facility] Last Admin: 05/16/17 09:25 Dose: 300 mg Pyrazinamide (Pyrazinamide) 1,500 mg PO DAILY [facility] Last Admin: 05/16/17 09:25 Dose: 1,500 mg Pyridoxine HCl (Vitamin B6 50 Mg Tab) 50 mg PO DAILY [facility] Last Admin: 05/16/17 09:25 Dose: 50 mg Rifampin (Rifampin Cap) 600 mg PO DAILY [facility] Last Admin: 05/16/17 09:25 Dose: 600 mg Saccharomyces Boulardii (Florastor) 250 mg PO BID [facility] Last Admin: 05/16/17 09:25 Dose: 250 mg - Labs Labs: 05/16/17 07:26 05/16/17 07:26 PT 15.3 SECONDS (9.7-12.2) H 05/09/17 13:53 INR 1.4 05/09/17 13:53 APTT 31 SECONDS (21-34) 05/09/17 13:53
[2017-05-17] MEDS: Albuterol-Ipratrop 3 mg / 0.5 (3 ml) UD INH SCH ×4 (01:34→18:51)
[2017-05-17 08:31] LABS: BASO # 0.1 K/uL (0.0-0.2); BASO % 0.7 % (0.0-2.0); EOS # 0.7 K/uL (0.0-0.7); EOS % 8.1 % (0.0-4.0); HEMOGLOBIN 12.5 g/dL (12.0-18.0); LYMPH # 0.8 K/uL (1.0-4.3); LYMPH % 9.6 % (20.0-40.0); MEAN CELL VOLUME 84.1 fL (80.0-94.0); MEAN CORPUSCULAR HGB CONC 35.7 g/dL (33.0-37.0); MEAN PLATELET VOLUME 7.2 fL (7.2-11.7); MONO # 0.8 K/uL (0.0-0.8); MONO % 8.8 % (0.0-10.0); NEUT # 6.4 K/uL (1.8-7.0); NEUT % 72.8 % (50.0-75.0); PLATELET COUNT 397 K/uL (130-400); RBC 4.17 Mil/uL (4.40-5.90); RED CELL DISTRIBUTION WIDTH 12.5 % (11.5-14.5); WHITE BLOOD COUNT 8.8 K/uL (4.8-10.8)
--- NOTE | 2017-05-17 08:48 | CP.PCM.PN ---
<Kristal Perea - Last Filed: 05/17/17 12:19> Subjective - Date & Time of Evaluation Date of Evaluation: 05/17/17 Time of Evaluation: 08:48 - Subjective Subjective: Medicine Progress Note: Hospitalist Service Patient seen and examined at bedside. Per nursing no acute events overnight. Patient is doing well, offers no complaints at this time. Has not had any hemoptysis for 2 days. Denies headaches, dizziness, visual changes, CP, palpitations, sob, abdominal pain, urinary symptoms. Objective - Vital Signs/Intake and Output Vital Signs (last 24 hours): Temp Pulse Resp BP Pulse Ox 98.3 F 88 20 115/66 98 05/17/17 04:00 05/17/17 04:00 05/17/17 04:00 05/17/17 04:00 05/17/17 04:00 Intake and Output: 05/17/17 05/17/17 06:59 18:59 Intake Total 1590 Balance 1590 - Medications Medications: Current Medications Albuterol/Ipratropium (Duoneb 3 Mg/0.5 Mg (3 Ml) Ud) 3 ml INH RQ6 [facility] Last Admin: 05/17/17 07:40 Dose: 3 ml Ethambutol HCl (Myambutol) 400 mg PO TID [facility] Last Admin: 05/16/17 17:25 Dose: 400 mg Famotidine (Pepcid) 40 mg PO DAILY [facility] Last Admin: 05/16/17 09:25 Dose: 40 mg Imipenem/Cilastatin Sodium 250 (mg/ Sodium Chloride) 100 mls @ 100 mls/hr IV Q6H [facility] Last Admin: 05/17/17 05:43 Dose: 100 mls/hr Isoniazid (Niazid) 300 mg PO DAILY [facility] Last Admin: 05/16/17 09:25 Dose: 300 mg Pyrazinamide (Pyrazinamide) 1,500 mg PO DAILY [facility] Last Admin: 05/16/17 09:25 Dose: 1,500 mg Pyridoxine HCl (Vitamin B6 50 Mg Tab) 50 mg PO DAILY [facility] Last Admin: 05/16/17 09:25 Dose: 50 mg Rifampin (Rifampin Cap) 600 mg PO DAILY [facility] Last Admin: 05/16/17 09:25 Dose: 600 mg Saccharomyces Boulardii (Florastor) 250 mg PO BID [facility] Last Admin: 05/16/17 17:25 Dose: 250 mg - Labs Labs: 05/17/17 08:15 05/16/17 07:26 PT 15.3 SECONDS (9.7-12.2) H 05/09/17 13:53 INR 1.4 05/09/17 13:53 APTT 31 SECONDS (21-34) 05/09/17 13:53 - Constitutional Appears: Well, No Acute Distress - Head Exam Head Exam: ATRAUMATIC, NORMAL INSPECTION - Eye Exam Eye Exam: EOMI, Normal appearance - ENT Exam ENT Exam: Mucous Membranes Moist - Neck Exam Neck Exam: Full ROM - Respiratory Exam Respiratory Exam: Clear to Ausculation Bilateral, NORMAL BREATHING PATTERN. absent: Rales, Rhonchi, Wheezes - Cardiovascular Exam Cardiovascular Exam: REGULAR RHYTHM, +S1, +S2 - GI/Abdominal Exam GI & Abdominal Exam: Soft. absent: Guarding, Rigid, Tenderness - Extremities Exam Extremities Exam: Full ROM, Normal Inspection. absent: Calf Tenderness - Neurological Exam Neurological Exam: Alert, Awake, CN II-XII Intact, Normal Gait, Oriented x3 - Psychiatric Exam Psychiatric exam: Normal Affect, Normal Mood - Skin Skin Exam: Dry, Normal Color, Warm Assessment and Plan (1) Cavitary lesion of lung Assessment & Plan: * Hemoptysis with Right Upper Lobe cavitary lesion * Patient on Airborne precautions * Infectious Disease: Dr Espinoza on board-->help appreciated * Pulmonary: Dr. 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) * Quantiferon gold test positive * Mycobacterium 12/15: no acid fast bacilli seen, culture pending * Mycobacterium 12/16: no acid fast bacilli seen, culture pending * Mycobacterium 12/17: no acid fast bacilli seen, culture pending * Mycobacterium 12/18: Rare 1+ acid fast bacilli seen, culture pending * Patient informed that he will need to continue TB therapy and isolation in the hospital for at least 4-6 weeks * We will continue AFB sputum collection weekly starting 05/19 * Case management referral for chest clinic in progress, State has also been notified * Thoracic surgery consulted, Dr Kate, help appreciated * No surgical intervention at this time. Recommending to continue with IV antibiotics * Active since 05/11/17 * Ethmabutol 400mg PO TID * Isoniazid 300mg PO daily * Prazinamide 1500mg PO daily * Pyridoxine 50mg PO daily * Rifampin 600mg PO daily * Abx: * Primaxin 250mg IVPB Q6H (active since 05/12/17) * Clindamycin 600mg IVPB Q8H (Discontinued) * Florastor 250mg PO BID * HIV 1+2 screening: negative, Hepatitis panel = negative * Blood cultures = no growth * LFTs within normal range * Will monitor labs 3x week * Imaging: * Chest xray on 05/09: Right upper lobe infiltrate with central cavitary lesion ; also appears to be some patchy early infiltrate. * Abd/Pelvis CT on 05/09: No acute abdominal or pelvic abnormality; Constipation; No evidence of bowel obstruction; Multifocal right lower lobe pneumonia. * CT Chest on 05/09: large area of dense consolidation seen throughout a large portion of mid to posterior aspect of right upper lobe with associated prominent air bronchograms. additional prominent areas of scattered consolidative changes and scattered areas of tree-in-bud opacities seen in right middle and lower lobes. concern for acute infectious and inflammatory changes suggestive of multifocal pneumonia. 1cm focal area of nodular consolidation in lateral aspect of left lung apex (series 3, image 28) with scattered areas of consolidative changes seen within mid to inferior aspect of left upper lobe measuring 1cm on series 3, image 60 up to 2.1 cm on series 3 image 60. concerning for multifocal pneumonia. Left paratracheal lymph nodes 1.2 cm Status: Acute (2) Klebsiella pneumonia Assessment & Plan: * Sputum cx from admission grew klebsiella, sensitivites reviewed * Abx: Imipenem 500 mg IV Q6H, Clindamycin 600mg Q8H (discontinued) * Urine strep pneumonia = pending * Urine legionella, mycoplasma = negative * ID consulted, Dr. Espinoza; f/u recommendations * Pulmonology consulted, Dr. Pham; f/u recommendations Status: Acute (3) Weight loss, unintentional Assessment & Plan: * Weight loss 61kg from admission to 56 kg * Will Continue weights MWF * Calorie count ordered * Er Medical Technician referral placed * Continue to monitor and assess need for diet supplementation * Patient states that he does not like the food options here, encouraged patient to have friends/family bring him food from home Status: Acute (4) Black stools Assessment & Plan: * Patient had one episode of black stool 05/11; patient has active tuberculosis * Hgb stable * Stool occult blood positive, likely secondary to hemotypsis * Not currently on anticoagulation or NSAIDs * GI consulted, Dr James; Discussed secondary to tuberculosis; no GI intervention at this time Status: Resolved (5) RUQ abdominal pain Assessment & Plan: * Abdominal pain resolved * Abdominal US showed no acute findings * LFTs: normal * Hepatitis panel negative * CT abdomen/pelvis (05/09): no acute abdominal or pelvic abnormality, Constipation. No evidence of bowel obstruction. Multifocal right lower lobe pneumonia Status: Resolved (6) Hypokalemia Assessment & Plan: * Resolved * Will continue to monitor labs 3x weekly Status: Resolved (7) Prophylactic measure Assessment & Plan: * GI ppx: Pepcid 40mg PO daily * SCDs (No DVT ppx indicated at this time) * Daily weight MWF Status: Acute <Amy Hillman V - Last Filed: 05/18/17 19:58> Objective - Vital Signs/Intake and Output Vital Signs (last 24 hours): Temp Pulse Resp BP Pulse Ox 98.3 F 94 H 20 102/65 95 05/18/17 15:15 05/18/17 15:15 05/18/17 15:15 05/18/17 15:15 05/18/17 15:15 Intake and Output: 05/18/17 05/19/17 18:59 06:59 Intake Total 500 Balance 500 - Medications Medications: Current Medications Albuterol/Ipratropium (Duoneb 3 Mg/0.5 Mg (3 Ml) Ud) 3 ml INH RQ6 [facility] Last Admin: 05/18/17 19:34 Dose: 3 ml Ethambutol HCl (Myambutol) 400 mg PO TID [facility] Last Admin: 05/18/17 18:27 Dose: 400 mg Famotidine (Pepcid) 40 mg PO DAILY [facility] Last Admin: 05/18/17 09:26 Dose: 40 mg Imipenem/Cilastatin Sodium 250 (mg/ Sodium Chloride) 100 mls @ 100 mls/hr IV Q6H [facility] Last Admin: 05/18/17 18:27 Dose: 100 mls/hr Isoniazid (Niazid) 300 mg PO DAILY [facility] Last Admin: 05/18/17 09:26 Dose: 300 mg Pyrazinamide (Pyrazinamide) 1,500 mg PO DAILY [facility] Last Admin: 05/18/17 09:26 Dose: 1,500 mg Pyridoxine HCl (Vitamin B6 50 Mg Tab) 50 mg PO DAILY [facility] Last Admin: 05/18/17 09:26 Dose: 50 mg Rifampin (Rifampin Cap) 600 mg PO DAILY [facility] Last Admin: 05/18/17 09:26 Dose: 600 mg Saccharomyces Boulardii (Florastor) 250 mg PO BID [facility] Last Admin: 05/18/17 18:27 Dose: 250 mg - Labs Labs: 05/17/17 08:15 05/17/17 08:15 PT 15.3 SECONDS (9.7-12.2) H 05/09/17 13:53 INR 1.4 05/09/17 13:53 APTT 31 SECONDS (21-34) 05/09/17 13:53 Attending/Attestation - Attestation I have personally seen and examined this patient.: Yes I have fully participated in the care of the patient.: Yes I have reviewed all pertinent clinical information, including history, physical exam and plan: Yes Notes (Text): This is late computer entry for 05/17/17. Patient seen, examined and case discussed with day-time resident. Patient denies acute complaints. Will need to continue RIPE therapy. Will start collecting AFBS on 05/19. Patient encourage to eat given his weight loss secondary to his tuberculosis. Assessment and Plan (1) Tuberculosis Cavitary lesion of lung Klebsiella Pneumonia Hemotypsis Bandemia Assessment & Plan: Hemoptysis with Right Upper Lobe cavitary lesion Patient on Airborne precautions * Infectious Disease: Dr Espinoza on board-->help appreciated * Pulmonary: Dr. Moran on board-->help appreciated * Thoracic surgery: Dr. Kate-->help appreciated * 1st line treatment for any lung abscess regardless of etiology is abx, 95% will resolve with this alone; this will be our recommendation. If abscess fails to resolve can consider CT-guided drainage with IR - but currently not indicated. Surgery is reserved for if the above mgmt fails, cannot rule out cancer, if abscess is >6cm and fails to resolve after 6 weeks, of it pt is exsanguinating from the hemoptysis. 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) * Positive Quantaferon * Mycobacterium 05/09: no acid fast bacilli seen * Mycobacterium 05/10: no acid fast bacilli seen * Mycobacterium 05/11: no acid fast bacilli seen * Mycobacterium 05/12: Rare 1+ acid fast bacilli seen * Active since 05/11/17 * Ethmabutol 400mg PO TID * Isoniazid 300mg PO daily * Prazinamide 1500mg PO daily * Pyridoxine 50mg PO daily * Rifampin 600mg PO daily * Abx: * Primaxin 250mg IVPB Q6H (active since 05/12/17) * D/C Clindamycin 600mg IVPB Q8H (active since 05/12-) * Florastor 250mg PO BID * HIV 1+2 screening: negative, Hepatitis panel = negative * Blood cultures = no growth for 4 days * Imaging: * Chest xray on 05/09: Right upper lobe infiltrate with central cavitary lesion ; also appears to be some patchy early infiltrate. * Abd/Pelvis CT on 05/09: No acute abdominal or pelvic abnormality; Constipation; No evidence of bowel obstruction; Multifocal right lower lobe pneumonia. * CT Chest on 05/09: large area of dense consolidation seen throughout a large portion of mid to posterior aspect of right upper lobe with associated prominent air bronchograms. additional prominent areas of scattered consolidative changes and scattered areas of tree-in-bud opacities seen in right middle and lower lobes. concern for acute infectious and inflammatory changes suggestive of multifocal pneumonia. 1cm focal area of nodular consolidation in lateral aspect of left lung apex (series 3, image 28) with scattered areas of consolidative changes seen within mid to inferior aspect of left upper lobe measuring 1cm on series 3, image 60 up to 2.1 cm on series 3 image 60. concerning for multifocal pneumonia. Left paratracheal lymph nodes 1.2 cm Status: Acute (3) Black stools Assessment & Plan: * Patient had one episode of black stool 05/11; patient has active tuberculosis * Hgb stable * Stool occult blood positive, likely secondary to hemotypsis * Not currently on anticoagulation or NSAIDs * GI consulted, Dr James; Discussed secondary to tuberculosis; no GI intervention at this time Status: Acute (4) RUQ abdominal pain-->resolved Assessment & Plan: * LFTs: normal * hepatitis panel negative * CT abdomen/pelvis (05/09): no acute abdominal or pelvic abnormality, Constipation. No evidence of bowel obstruction. Multifocal right lower lobe pneumonia * Abdominal US (05/12/17): evaluation of pancreas is obscured by gas in the GI tract however the remainder of examination is unremarkable Status: Acute (5) Hypokalemia Assessment & Plan: * monitor and replete (6) Prophylactic measure Assessment & Plan: * GI ppx: Pepcid 40mg PO daily * SCDs (No DVT ppx indicated at this time) * Florastor 250mg PO BID * Weights MWF Status: Acute
[2017-05-17 09:10] LABS: EOSINOPHIL 7 % (0-4); LYMPHOCYTE 10 % (20-40); MONOCYTE 4 % (0-10); NEUTROPHIL 79 % (50-75); PLATELET ESTIMATE NORMAL (NORMAL); TOTAL CELLS COUNTED 100
[2017-05-17 09:34] LABS: ALBUMIN 3.1 g/dL (3.5-5.0)
[2017-05-17 09:53] LABS: ALB/GLOB RATIO 0.8 (1.0-2.1); ALT/SGPT 28 U/L (21-72); AST/SGOT 26 U/L (17-59); BLOOD UREA NITROGEN 8 mg/dL (9-20); CALCIUM 7.8 mg/dl (8.6-10.4); GFR AFRICAN-AMERICAN > 60; GFR NON-AFRICAN AMERICAN > 60
[2017-05-17] MEDS: Saccharomyces Boulardi 250 mg Cap PO SCH ×2 (10:01→17:31)
[2017-05-18] MEDS: Albuterol-Ipratrop 3 mg / 0.5 (3 ml) UD INH SCH ×4 (02:19→19:34)
--- NOTE | 2017-05-18 08:26 | CP.PCM.PN ---
<Kristal Perea - Last Filed: 05/18/17 08:32> Subjective - Date & Time of Evaluation Date of Evaluation: 05/18/17 Time of Evaluation: 08:24 - Subjective Subjective: Medicine Progress Note: Hospitalist Service Patient seen and examined at bedside. Per nursing no acute events overnight. Patient is doing well, offers no complaints at this time. Patient states that he ate chicken and potatoes for dinner last night. Denies headaches, dizziness, visual changes, cp, palpitations, sob, abdominal pain, urinary symptoms, changes in bowel habits. Objective - Vital Signs/Intake and Output Vital Signs (last 24 hours): Temp Pulse Resp BP Pulse Ox 98.2 F 103 H 20 101/61 95 05/18/17 07:41 05/18/17 07:41 05/18/17 07:41 05/18/17 07:41 05/18/17 07:41 - Medications Medications: Current Medications Albuterol/Ipratropium (Duoneb 3 Mg/0.5 Mg (3 Ml) Ud) 3 ml INH RQ6 [facility] Last Admin: 05/18/17 07:17 Dose: 3 ml Ethambutol HCl (Myambutol) 400 mg PO TID [facility] Last Admin: 05/17/17 17:30 Dose: 400 mg Famotidine (Pepcid) 40 mg PO DAILY [facility] Last Admin: 05/17/17 10:01 Dose: 40 mg Imipenem/Cilastatin Sodium 250 (mg/ Sodium Chloride) 100 mls @ 100 mls/hr IV Q6H [facility] Last Admin: 05/18/17 05:47 Dose: 100 mls/hr Isoniazid (Niazid) 300 mg PO DAILY [facility] Last Admin: 05/17/17 10:01 Dose: 300 mg Pyrazinamide (Pyrazinamide) 1,500 mg PO DAILY [facility] Last Admin: 05/17/17 10:01 Dose: 1,500 mg Pyridoxine HCl (Vitamin B6 50 Mg Tab) 50 mg PO DAILY [facility] Last Admin: 05/17/17 10:01 Dose: 50 mg Rifampin (Rifampin Cap) 600 mg PO DAILY [facility] Last Admin: 05/17/17 10:01 Dose: 600 mg Saccharomyces Boulardii (Florastor) 250 mg PO BID [facility] Last Admin: 05/17/17 17:31 Dose: 250 mg - Labs Labs: 05/17/17 08:15 12/23/17 08:15 PT 15.3 SECONDS (9.7-12.2) H 05/09/17 13:53 INR 1.4 05/09/17 13:53 APTT 31 SECONDS (21-34) 05/09/17 13:53 - Constitutional Appears: Well, No Acute Distress - Head Exam Head Exam: ATRAUMATIC, NORMAL INSPECTION, NORMOCEPHALIC - Eye Exam Eye Exam: EOMI, Normal appearance - ENT Exam ENT Exam: Mucous Membranes Moist - Neck Exam Neck Exam: Full ROM - Respiratory Exam Respiratory Exam: Clear to Ausculation Bilateral, NORMAL BREATHING PATTERN. absent: Accessory Muscle Use, Decreased Breath Sounds, Rales, Rhonchi, Wheezes - Cardiovascular Exam Cardiovascular Exam: REGULAR RHYTHM, +S1, +S2. absent: Murmur - GI/Abdominal Exam GI & Abdominal Exam: Soft, Normal Bowel Sounds. absent: Guarding, Rigid, Tenderness - Rectal Exam Rectal Exam: Deferred - Extremities Exam Extremities Exam: Normal Inspection. absent: Calf Tenderness, Full ROM - Back Exam Back Exam: NORMAL INSPECTION - Neurological Exam Neurological Exam: Alert, Awake, CN II-XII Intact, Normal Gait, Oriented x3 - Psychiatric Exam Psychiatric exam: Normal Affect, Normal Mood - Skin Skin Exam: Dry, Normal Color, Warm Assessment and Plan (1) Cavitary lesion of lung Assessment & Plan: * Hemoptysis with Right Upper Lobe cavitary lesion * Patient on Airborne precautions * Infectious Disease: Dr Espinoza on board-->help appreciated * Pulmonary: Dr. 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) * Quantiferon gold test positive * Mycobacterium 12/15: no acid fast bacilli seen, culture pending * Mycobacterium 12/16: no acid fast bacilli seen, culture pending * Mycobacterium 12/17: no acid fast bacilli seen, culture pending * Mycobacterium 12/18: Rare 1+ acid fast bacilli seen, culture pending * Patient informed that he will need to continue TB therapy and isolation in the hospital for at least 4-6 weeks * We will continue AFB sputum collection weekly starting 05/19 * Case management referral for chest clinic in progress, State has also been notified * Thoracic surgery consulted, Dr Kate, help appreciated * No surgical intervention at this time. Recommending to continue with IV antibiotics * Active since 05/11/17 * Ethmabutol 400mg PO TID * Isoniazid 300mg PO daily * Prazinamide 1500mg PO daily * Pyridoxine 50mg PO daily * Rifampin 600mg PO daily * Abx: * Primaxin 250mg IVPB Q6H (active since 05/12/17) * Clindamycin 600mg IVPB Q8H (Discontinued) * Florastor 250mg PO BID * HIV 1+2 screening: negative, Hepatitis panel = negative * Blood cultures = no growth * LFTs within normal range * Will monitor labs 3x week * Imaging: * Chest xray on 05/09: Right upper lobe infiltrate with central cavitary lesion ; also appears to be some patchy early infiltrate. * Abd/Pelvis CT on 05/09: No acute abdominal or pelvic abnormality; Constipation; No evidence of bowel obstruction; Multifocal right lower lobe pneumonia. * CT Chest on 05/09: large area of dense consolidation seen throughout a large portion of mid to posterior aspect of right upper lobe with associated prominent air bronchograms. additional prominent areas of scattered consolidative changes and scattered areas of tree-in-bud opacities seen in right middle and lower lobes. concern for acute infectious and inflammatory changes suggestive of multifocal pneumonia. 1cm focal area of nodular consolidation in lateral aspect of left lung apex (series 3, image 28) with scattered areas of consolidative changes seen within mid to inferior aspect of left upper lobe measuring 1cm on series 3, image 60 up to 2.1 cm on series 3 image 60. concerning for multifocal pneumonia. Left paratracheal lymph nodes 1.2 cm Status: Acute (2) Klebsiella pneumonia Assessment & Plan: * Sputum cx from admission grew klebsiella, sensitivites reviewed * Abx: Imipenem 500 mg IV Q6H, Clindamycin 600mg Q8H (discontinued) * Urine legionella, mycoplasma = negative * ID consulted, Dr. Espinoza; f/u recommendations * Pulmonology consulted, Dr. Pham; f/u recommendations Status: Acute (3) Weight loss, unintentional Assessment & Plan: * Will Continue weights MWF * Calorie count ordered * Infantry Assaultman referral placed * Continue to monitor and assess need for diet supplementation * Patient states that he does not like the food options here, encouraged patient to have friends/family bring him food from home Status: Acute (4) Black stools Assessment & Plan: * Patient had one episode of black stool 05/11; patient has active tuberculosis * Hgb stable * Stool occult blood positive, likely secondary to hemotypsis * Not currently on anticoagulation or NSAIDs * GI consulted, Dr James; Discussed secondary to tuberculosis; no GI intervention at this time Status: Resolved (5) RUQ abdominal pain Assessment & Plan: * Abdominal pain resolved * Abdominal US showed no acute findings * LFTs: normal * Hepatitis panel negative * CT abdomen/pelvis (05/09): no acute abdominal or pelvic abnormality, Constipation. No evidence of bowel obstruction. Multifocal right lower lobe pneumonia Status: Resolved (6) Hypokalemia Assessment & Plan: * Resolved * Will monitor labs 3x weekly, MWF Status: Resolved (7) Prophylactic measure Assessment & Plan: * GI ppx: Pepcid 40mg PO daily * SCDs (No DVT ppx indicated at this time) * Daily weight MWF Status: Acute <Amy Hillman V - Last Filed: 05/18/17 20:00> Objective - Vital Signs/Intake and Output Vital Signs (last 24 hours): Temp Pulse Resp BP Pulse Ox 98.3 F 94 H 20 102/65 95 05/18/17 15:15 05/18/17 15:15 05/18/17 15:15 05/18/17 15:15 05/18/17 15:15 Intake and Output: 05/18/17 05/19/17 18:59 06:59 Intake Total 500 Balance 500 - Medications Medications: Current Medications Albuterol/Ipratropium (Duoneb 3 Mg/0.5 Mg (3 Ml) Ud) 3 ml INH RQ6 [facility] Last Admin: 05/18/17 19:34 Dose: 3 ml Ethambutol HCl (Myambutol) 400 mg PO TID [facility] Last Admin: 05/18/17 18:27 Dose: 400 mg Famotidine (Pepcid) 40 mg PO DAILY [facility] Last Admin: 05/18/17 09:26 Dose: 40 mg Imipenem/Cilastatin Sodium 250 (mg/ Sodium Chloride) 100 mls @ 100 mls/hr IV Q6H [facility] Last Admin: 05/18/17 18:27 Dose: 100 mls/hr Isoniazid (Niazid) 300 mg PO DAILY [facility] Last Admin: 05/18/17 09:26 Dose: 300 mg Pyrazinamide (Pyrazinamide) 1,500 mg PO DAILY [facility] Last Admin: 12/24/17 09:26 Dose: 1,500 mg Pyridoxine HCl (Vitamin B6 50 Mg Tab) 50 mg PO DAILY [facility] Last Admin: 05/18/17 09:26 Dose: 50 mg Rifampin (Rifampin Cap) 600 mg PO DAILY [facility] Last Admin: 05/18/17 09:26 Dose: 600 mg Saccharomyces Boulardii (Florastor) 250 mg PO BID [facility] Last Admin: 05/18/17 18:27 Dose: 250 mg - Labs Labs: 05/17/17 08:15 05/17/17 08:15 PT 15.3 SECONDS (9.7-12.2) H 05/09/17 13:53 INR 1.4 05/09/17 13:53 APTT 31 SECONDS (21-34) 05/09/17 13:53 Attending/Attestation - Attestation I have personally seen and examined this patient.: Yes I have fully participated in the care of the patient.: Yes I have reviewed all pertinent clinical information, including history, physical exam and plan: Yes Notes (Text): Patient seen, examined, and case discussed with day-time resident. Patient seen this morning. Patient has eaten his breakfast entirely. Patient encouraged to eat. Pending risk control consultant referral and follow calorie count. Continue RIPE therapy. Start to collect AFB tomorro 05/19. Assessment and Plan (1) Tuberculosis Cavitary lesion of lung Klebsiella Pneumonia Hemotypsis Bandemia Assessment & Plan: Hemoptysis with Right Upper Lobe cavitary lesion Patient on Airborne precautions * Infectious Disease: Dr Espinoza on board-->help appreciated * Pulmonary: Dr. Moran on board-->help appreciated * Thoracic surgery: Dr. Kate-->help appreciated * 1st line treatment for any lung abscess regardless of etiology is abx, 95% will resolve with this alone; this will be our recommendation. If abscess fails to resolve can consider CT-guided drainage with IR - but currently not indicated. Surgery is reserved for if the above mgmt fails, cannot rule out cancer, if abscess is >6cm and fails to resolve after 6 weeks, of it pt is exsanguinating from the hemoptysis. 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) * Positive Quantaferon * Mycobacterium 05/09: no acid fast bacilli seen * Mycobacterium 05/10: no acid fast bacilli seen * Mycobacterium 05/11: no acid fast bacilli seen * Mycobacterium 05/12: Rare 1+ acid fast bacilli seen * Active since 05/11/17 * Ethmabutol 400mg PO TID * Isoniazid 300mg PO daily * Prazinamide 1500mg PO daily * Pyridoxine 50mg PO daily * Rifampin 600mg PO daily * Abx: * Primaxin 250mg IVPB Q6H (active since 05/12/17) * D/C Clindamycin 600mg IVPB Q8H (active since 05/12-) * Florastor 250mg PO BID * HIV 1+2 screening: negative, Hepatitis panel = negative * Blood cultures = no growth for 4 days * Imaging: * Chest xray on 05/09: Right upper lobe infiltrate with central cavitary lesion ; also appears to be some patchy early infiltrate. * Abd/Pelvis CT on 05/09: No acute abdominal or pelvic abnormality; Constipation; No evidence of bowel obstruction; Multifocal right lower lobe pneumonia. * CT Chest on 05/09: large area of dense consolidation seen throughout a large portion of mid to posterior aspect of right upper lobe with associated prominent air bronchograms. additional prominent areas of scattered consolidative changes and scattered areas of tree-in-bud opacities seen in right middle and lower lobes. concern for acute infectious and inflammatory changes suggestive of multifocal pneumonia. 1cm focal area of nodular consolidation in lateral aspect of left lung apex (series 3, image 28) with scattered areas of consolidative changes seen within mid to inferior aspect of left upper lobe measuring 1cm on series 3, image 60 up to 2.1 cm on series 3 image 60. concerning for multifocal pneumonia. Left paratracheal lymph nodes 1.2 cm Status: Acute (3) Black stools Assessment & Plan: * Patient had one episode of black stool 05/11; patient has active tuberculosis * Hgb stable * Stool occult blood positive, likely secondary to hemotypsis * Not currently on anticoagulation or NSAIDs * GI consulted, Dr James; Discussed secondary to tuberculosis; no GI intervention at this time Status: Acute (4) RUQ abdominal pain-->resolved Assessment & Plan: * LFTs: normal * hepatitis panel negative * CT abdomen/pelvis (05/09): no acute abdominal or pelvic abnormality, Constipation. No evidence of bowel obstruction. Multifocal right lower lobe pneumonia * Abdominal US (05/12/17): evaluation of pancreas is obscured by gas in the GI tract however the remainder of examination is unremarkable Status: Acute (5) Hypokalemia Assessment & Plan: * monitor and replete (6) Prophylactic measure Assessment & Plan: * GI ppx: Pepcid 40mg PO daily * SCDs (No DVT ppx indicated at this time) * Florastor 250mg PO BID * Weights MWF Status: Acute
[2017-05-18] MEDS: Saccharomyces Boulardi 250 mg Cap PO SCH ×2 (09:26→18:27)
[2017-05-19] MEDS: Albuterol-Ipratrop 3 mg / 0.5 (3 ml) UD INH SCH ×3 (01:15→13:13)
--- NOTE | 2017-05-19 01:23 | CP.PCM.PN ---
<Severo Etienne - Last Filed: 05/19/17 01:20> Subjective - Date & Time of Evaluation Date of Evaluation: 05/19/17 Time of Evaluation: 01:22 - Subjective Subjective: Patient seen and examined at bedside. Doing well with no new complaints at this time. Denies fever, chills, chest pain, SOB Objective - Vital Signs/Intake and Output Vital Signs (last 24 hours): Temp Pulse Resp BP Pulse Ox 98.3 F 94 H 20 102/65 95 05/18/17 15:15 05/18/17 15:15 05/18/17 15:15 05/18/17 15:15 05/18/17 15:15 Intake and Output: 05/18/17 05/19/17 18:59 06:59 Intake Total 500 Balance 500 - Medications Medications: Current Medications Albuterol/Ipratropium (Duoneb 3 Mg/0.5 Mg (3 Ml) Ud) 3 ml INH RQ6 [facility] Last Admin: 05/19/17 01:15 Dose: Not Given Ethambutol HCl (Myambutol) 400 mg PO TID [facility] Last Admin: 05/18/17 18:27 Dose: 400 mg Famotidine (Pepcid) 40 mg PO DAILY [facility] Last Admin: 05/18/17 09:26 Dose: 40 mg Imipenem/Cilastatin Sodium 250 (mg/ Sodium Chloride) 100 mls @ 100 mls/hr IV Q6H [facility] Last Admin: 05/18/17 23:58 Dose: 100 mls/hr Isoniazid (Niazid) 300 mg PO DAILY [facility] Last Admin: 05/18/17 09:26 Dose: 300 mg Pyrazinamide (Pyrazinamide) 1,500 mg PO DAILY [facility] Last Admin: 05/18/17 09:26 Dose: 1,500 mg Pyridoxine HCl (Vitamin B6 50 Mg Tab) 50 mg PO DAILY [facility] Last Admin: 05/18/17 09:26 Dose: 50 mg Rifampin (Rifampin Cap) 600 mg PO DAILY [facility] Last Admin: 05/18/17 09:26 Dose: 600 mg Saccharomyces Boulardii (Florastor) 250 mg PO BID [facility] Last Admin: 05/18/17 18:27 Dose: 250 mg - Labs Labs: 05/17/17 08:15 05/17/17 08:15 PT 15.3 SECONDS (9.7-12.2) H 05/09/17 13:53 INR 1.4 05/09/17 13:53 APTT 31 SECONDS (21-34) 05/09/17 13:53 - Additional Findings Additional findings: - Constitutional Appears: Well, No Acute Distress - Head Exam Head Exam: ATRAUMATIC, NORMAL INSPECTION, NORMOCEPHALIC - Eye Exam Eye Exam: EOMI, Normal appearance - ENT Exam ENT Exam: Mucous Membranes Moist - Neck Exam Neck Exam: Full ROM - Respiratory Exam Respiratory Exam: Clear to Ausculation Bilateral, NORMAL BREATHING PATTERN. absent: Accessory Muscle Use, Decreased Breath Sounds, Rales, Rhonchi, Wheezes - Cardiovascular Exam Cardiovascular Exam: REGULAR RHYTHM, +S1, +S2. absent: Murmur - GI/Abdominal Exam GI & Abdominal Exam: Soft, Normal Bowel Sounds. absent: Guarding, Rigid, Tenderness - Rectal Exam Rectal Exam: Deferred - Extremities Exam Extremities Exam: Normal Inspection. absent: Calf Tenderness, Full ROM - Back Exam Back Exam: NORMAL INSPECTION - Neurological Exam Neurological Exam: Alert, Awake, CN II-XII Intact, Normal Gait, Oriented x3 - Psychiatric Exam Psychiatric exam: Normal Affect, Normal Mood - Skin Skin Exam: Dry, Normal Color, Warm Assessment and Plan - Assessment and Plan (Free Text) Assessment: (1) Cavitary lesion of lung * Hemoptysis with Right Upper Lobe cavitary lesion * Patient on Airborne precautions * Infectious Disease: Dr Espinoza on board-->help appreciated * Pulmonary: Dr. 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) * Quantiferon gold test positive * Mycobacterium 12/15: no acid fast bacilli seen, culture pending * Mycobacterium 12/16: no acid fast bacilli seen, culture pending * Mycobacterium 12/17: no acid fast bacilli seen, culture pending * Mycobacterium 12/18: Rare 1+ acid fast bacilli seen, culture pending * Patient informed that he will need to continue TB therapy and isolation in the hospital for at least 4-6 weeks * We will continue AFB sputum collection weekly starting 05/19 * Case management referral for chest clinic in progress, State has also been notified * Thoracic surgery consulted, Dr Kate, help appreciated * No surgical intervention at this time. Recommending to continue with IV antibiotics * Active since 05/11/17 * Ethmabutol 400mg PO TID * Isoniazid 300mg PO daily * Prazinamide 1500mg PO daily * Pyridoxine 50mg PO daily * Rifampin 600mg PO daily * Abx: * Primaxin 250mg IVPB Q6H (active since 05/12/17) * Clindamycin 600mg IVPB Q8H (Discontinued) * Florastor 250mg PO BID * HIV 1+2 screening: negative, Hepatitis panel = negative * Blood cultures = no growth * LFTs within normal range * Will monitor labs 3x week * Imaging: * Chest xray on 05/09: Right upper lobe infiltrate with central cavitary lesion ; also appears to be some patchy early infiltrate. * Abd/Pelvis CT on 05/09: No acute abdominal or pelvic abnormality; Constipation; No evidence of bowel obstruction; Multifocal right lower lobe pneumonia. * CT Chest on 05/09: large area of dense consolidation seen throughout a large portion of mid to posterior aspect of right upper lobe with associated prominent air bronchograms. additional prominent areas of scattered consolidative changes and scattered areas of tree-in-bud opacities seen in right middle and lower lobes. concern for acute infectious and inflammatory changes suggestive of multifocal pneumonia. 1cm focal area of nodular consolidation in lateral aspect of left lung apex (series 3, image 28) with scattered areas of consolidative changes seen within mid to inferior aspect of left upper lobe measuring 1cm on series 3, image 60 up to 2.1 cm on series 3 image 60. concerning for multifocal pneumonia. Left paratracheal lymph nodes 1.2 cm Klebsiella pneumonia * Sputum cx from admission grew klebsiella, sensitivites reviewed * Abx: Imipenem 500 mg IV Q6H, Clindamycin 600mg Q8H (discontinued) * Urine legionella, mycoplasma = negative * ID consulted, Dr. Espinoza; f/u recommendations * Pulmonology consulted, Dr. Pham; f/u recommendations Weight loss, unintentional * Will Continue weights MWF * Calorie count ordered * Transmission Design Engineer referral placed * Continue to monitor and assess need for diet supplementation * Patient states that he does not like the food options here, encouraged patient to have friends/family bring him food from home Black stools * Patient had one episode of black stool 05/11; patient has active tuberculosis * Hgb stable * Stool occult blood positive, likely secondary to hemotypsis * Not currently on anticoagulation or NSAIDs * GI consulted, Dr James; Discussed secondary to tuberculosis; no GI intervention at this time RUQ abdominal pain * Abdominal pain resolved * Abdominal US showed no acute findings * LFTs: normal * Hepatitis panel negative * CT abdomen/pelvis (05/09): no acute abdominal or pelvic abnormality, Constipation. No evidence of bowel obstruction. Multifocal right lower lobe pneumonia Hypokalemia * Resolved * Will monitor labs 3x weekly, MWF Prophylactic measure * GI ppx: Pepcid 40mg PO daily * SCDs (No DVT ppx indicated at this time) * Daily weight MWF <Nik Ngo - Last Filed: 05/19/17 20:25> Objective - Vital Signs/Intake and Output Vital Signs (last 24 hours): Temp Pulse Resp BP Pulse Ox 98.6 F 83 20 107/67 97 05/19/17 15:25 05/19/17 15:25 05/19/17 15:25 05/19/17 15:25 05/19/17 15:25 Intake and Output: 05/19/17 05/20/17 18:59 06:59 Intake Total 940 Balance 940 - Medications Medications: Current Medications Albuterol/Ipratropium (Duoneb 3 Mg/0.5 Mg (3 Ml) Ud) 3 ml INH RQ6 [facility] Last Admin: 05/19/17 13:13 Dose: 3 ml Ethambutol HCl (Myambutol) 400 mg PO TID [facility] Last Admin: 05/19/17 17:19 Dose: 400 mg Famotidine (Pepcid) 40 mg PO DAILY [facility] Last Admin: 05/19/17 09:41 Dose: 40 mg Imipenem/Cilastatin Sodium 250 (mg/ Sodium Chloride) 100 mls @ 100 mls/hr IV Q6H [facility] Last Admin: 05/19/17 17:19 Dose: 100 mls/hr Isoniazid (Niazid) 300 mg PO DAILY [facility] Last Admin: 05/19/17 09:41 Dose: 300 mg Pyrazinamide (Pyrazinamide) 1,500 mg PO DAILY [facility] Last Admin: 05/19/17 09:40 Dose: 1,500 mg Pyridoxine HCl (Vitamin B6 50 Mg Tab) 50 mg PO DAILY [facility] Last Admin: 05/19/17 09:40 Dose: 50 mg Rifampin (Rifampin Cap) 600 mg PO DAILY [facility] Last Admin: 05/19/17 09:40 Dose: 600 mg Saccharomyces Boulardii (Florastor) 250 mg PO BID [facility] Last Admin: 05/19/17 17:19 Dose: 250 mg - Labs Labs: 05/19/17 11:20 05/19/17 11:20 PT 15.3 SECONDS (9.7-12.2) H 05/09/17 13:53 INR 1.4 05/09/17 13:53 APTT 31 SECONDS (21-34) 05/09/17 13:53 Attending/Attestation - Attestation I have personally seen and examined this patient.: Yes I have fully participated in the care of the patient.: Yes I have reviewed all pertinent clinical information, including history, physical exam and plan: Yes Notes (Text): 05/19/17 20:24 Patient was seen and examined at 1:30 PM 05/19/17 555 Exam, assessment and plan were gone over with the resident. Nik Ngo D.O.
[2017-05-19] MEDS: Saccharomyces Boulardi 250 mg Cap PO SCH ×2 (09:41→17:19)
[2017-05-19 11:40] LABS: BASO # 0.1 K/uL (0.0-0.2); BASO % 0.7 % (0.0-2.0); EOS # 0.4 K/uL (0.0-0.7); HEMOGLOBIN 13.5 g/dL (12.0-18.0); LYMPH # 0.9 K/uL (1.0-4.3); LYMPH % 10.7 % (20.0-40.0); MEAN CELL VOLUME 84.3 fL (80.0-94.0); MEAN CORPUSCULAR HEMOGLOBIN 29.1 pg (27.0-31.0); MEAN CORPUSCULAR HGB CONC 34.5 g/dL (33.0-37.0); MEAN PLATELET VOLUME 7.3 fL (7.2-11.7); MONO # 0.7 K/uL (0.0-0.8); MONO % 8.7 % (0.0-10.0); NEUT # 6.3 K/uL (1.8-7.0); NEUT % 74.9 % (50.0-75.0); NRBC % 0.1 % (0.0-2.0); RBC 4.66 Mil/uL (4.40-5.90); RED CELL DISTRIBUTION WIDTH 12.8 % (11.5-14.5); WHITE BLOOD COUNT 8.4 K/uL (4.8-10.8)
[2017-05-19 11:57] LABS: ALBUMIN 3.4 g/dL (3.5-5.0); ALT/SGPT 91 U/L (21-72); AST/SGOT 58 U/L (17-59); BLOOD UREA NITROGEN 8 mg/dL (9-20); CALCIUM 8.1 mg/dl (8.6-10.4); GFR AFRICAN-AMERICAN > 60; GFR NON-AFRICAN AMERICAN > 60
[2017-05-20] MEDS: Albuterol-Ipratrop 3 mg / 0.5 (3 ml) UD INH SCH ×4 (02:45→20:25)
--- NOTE | 2017-05-20 07:56 | CP.PCM.PN ---
<Kristal Perea - Last Filed: 05/20/17 11:31> Subjective - Date & Time of Evaluation Date of Evaluation: 05/20/17 Time of Evaluation: 07:55 - Subjective Subjective: Medicine Progress Note: Hospitalist Service Patient seen and examined at bedside. Per nursing no acute events overnight. Patient is doing well, offers no complaints at this time. Denies hemoptysis, headaches, dizziness, visual changes, chest pain, palpitations, sob, abdominal pain, numbness/tingling, urinary symptoms. Objective - Vital Signs/Intake and Output Vital Signs (last 24 hours): Temp Pulse Resp BP Pulse Ox 97.7 F 87 18 103/64 96 05/20/17 07:50 05/20/17 07:50 05/20/17 07:50 05/20/17 07:50 05/20/17 07:50 Intake and Output: 05/20/17 05/20/17 06:59 18:59 Intake Total 320 Balance 320 - Medications Medications: Current Medications Albuterol/Ipratropium (Duoneb 3 Mg/0.5 Mg (3 Ml) Ud) 3 ml INH RQ6 [facility] Last Admin: 05/20/17 02:45 Dose: Not Given Ethambutol HCl (Myambutol) 400 mg PO TID [facility] Last Admin: 05/19/17 17:19 Dose: 400 mg Famotidine (Pepcid) 40 mg PO DAILY [facility] Last Admin: 05/19/17 09:41 Dose: 40 mg Imipenem/Cilastatin Sodium 250 (mg/ Sodium Chloride) 100 mls @ 100 mls/hr IV Q6H [facility] Last Admin: 05/20/17 05:58 Dose: 100 mls/hr Isoniazid (Niazid) 300 mg PO DAILY [facility] Last Admin: 05/19/17 09:41 Dose: 300 mg Pyrazinamide (Pyrazinamide) 1,500 mg PO DAILY [facility] Last Admin: 05/19/17 09:40 Dose: 1,500 mg Pyridoxine HCl (Vitamin B6 50 Mg Tab) 50 mg PO DAILY [facility] Last Admin: 05/19/17 09:40 Dose: 50 mg Rifampin (Rifampin Cap) 600 mg PO DAILY [facility] Last Admin: 05/19/17 09:40 Dose: 600 mg Saccharomyces Boulardii (Florastor) 250 mg PO BID [facility] Last Admin: 05/19/17 17:19 Dose: 250 mg - Labs Labs: 05/19/17 11:20 05/19/17 11:20 PT 15.3 SECONDS (9.7-12.2) H 05/09/17 13:53 INR 1.4 05/09/17 13:53 APTT 31 SECONDS (21-34) 05/09/17 13:53 - Constitutional Appears: Well, Non-toxic, No Acute Distress - Head Exam Head Exam: ATRAUMATIC, NORMAL INSPECTION - Eye Exam Eye Exam: EOMI, Normal appearance - ENT Exam ENT Exam: Mucous Membranes Moist - Neck Exam Neck Exam: Full ROM - Respiratory Exam Respiratory Exam: Clear to Ausculation Bilateral, NORMAL BREATHING PATTERN. absent: Rales, Rhonchi, Wheezes - Cardiovascular Exam Cardiovascular Exam: REGULAR RHYTHM, +S1, +S2 - GI/Abdominal Exam GI & Abdominal Exam: Soft. absent: Guarding, Rigid, Tenderness, Rebound - Rectal Exam Rectal Exam: Deferred - Extremities Exam Extremities Exam: Full ROM, Normal Capillary Refill, Normal Inspection. absent : Calf Tenderness - Back Exam Back Exam: NORMAL INSPECTION - Neurological Exam Neurological Exam: Alert, Awake, CN II-XII Intact, Normal Gait, Oriented x3 - Psychiatric Exam Psychiatric exam: Normal Affect, Normal Mood - Skin Skin Exam: Dry, Normal Color, Warm Assessment and Plan (1) Cavitary lesion of lung Assessment & Plan: * Presented with Hemoptysis with Right Upper Lobe cavitary lesion, hemoptysis has resolved * Patient is on Airborne precautions * Infectious Disease: Dr Espinoza on board-->help appreciated * Pulmonary: Dr. 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) * Quantiferon gold test positive * Mycobacterium 12/15: no acid fast bacilli seen, culture no growth * Mycobacterium 12/16: no acid fast bacilli seen, culture no growth * Mycobacterium 12/17: no acid fast bacilli seen, culture pno growth * Mycobacterium 12/18: Rare 1+ acid fast bacilli seen, culture pending * Patient informed that he will need to continue TB therapy and isolation in the hospital for at least 4-6 weeks * We will continue AFB sputum collection weekly starting 05/19 * Case management referral for chest clinic in progress, State has also been notified * Thoracic surgery consulted, Dr Kate, help appreciated * No surgical intervention at this time. Recommending to continue with IV antibiotics * Active since 05/11/17 * Ethmabutol 400mg PO TID * Isoniazid 300mg PO daily * Prazinamide 1500mg PO daily * Pyridoxine 50mg PO daily * Rifampin 600mg PO daily * Abx: * Primaxin 250mg IVPB Q6H (active since 05/12/17) * Clindamycin 600mg IVPB Q8H (Discontinued) * Florastor 250mg PO BID * HIV 1+2 screening: negative, Hepatitis panel = negative * Blood cultures = no growth * LFTs increasing; AST/ALT 58/91 yesterday (this is likely an adverse effect of TB medications, will order repeat CMP for today) * Will monitor labs 3x week * Imaging: * Chest xray on 05/09: Right upper lobe infiltrate with central cavitary lesion ; also appears to be some patchy early infiltrate. * Abd/Pelvis CT on 05/09: No acute abdominal or pelvic abnormality; Constipation; No evidence of bowel obstruction; Multifocal right lower lobe pneumonia. * CT Chest on 05/09: large area of dense consolidation seen throughout a large portion of mid to posterior aspect of right upper lobe with associated prominent air bronchograms. additional prominent areas of scattered consolidative changes and scattered areas of tree-in-bud opacities seen in right middle and lower lobes. concern for acute infectious and inflammatory changes suggestive of multifocal pneumonia. 1cm focal area of nodular consolidation in lateral aspect of left lung apex (series 3, image 28) with scattered areas of consolidative changes seen within mid to inferior aspect of left upper lobe measuring 1cm on series 3, image 60 up to 2.1 cm on series 3 image 60. concerning for multifocal pneumonia. Left paratracheal lymph nodes 1.2 cm Status: Acute (2) Klebsiella pneumonia Assessment & Plan: * Sputum cx from admission grew klebsiella, sensitivites reviewed * Abx: Imipenem 500 mg IV Q6H, Clindamycin 600mg Q8H (discontinued) * Urine legionella, mycoplasma = negative * ID consulted, Dr. Espinoza; f/u recommendations * Pulmonology consulted, Dr. Pham; f/u recommendations Status: Acute (3) Weight loss, unintentional Assessment & Plan: * Weight appears to have stabilized * Will Continue weights MWF * Calorie count ordered * Public Transportation Inspector referral placed * Continue to monitor and assess need for diet supplementation * Patient states that he does not like the food options here, encouraged patient to have friends/family bring him food from home Status: Acute (4) Black stools Assessment & Plan: * Had one episode of black tarry stools, likely secondary to hemopytsis * GI was consulted, no intervention at this time * Resolved Status: Resolved (5) RUQ abdominal pain Assessment & Plan: * Abdominal pain resolved * Abdominal US showed no acute findings * LFTs: normal * Hepatitis panel negative * CT abdomen/pelvis (05/09): no acute abdominal or pelvic abnormality, Constipation. No evidence of bowel obstruction. Multifocal right lower lobe pneumonia Status: Resolved (6) Hypokalemia Assessment & Plan: * Resolved * Will continue to monitor labs MWF (3x weekly) Status: Resolved (7) Prophylactic measure Assessment & Plan: * GI ppx: Pepcid 40mg PO daily * SCDs (No DVT ppx indicated at this time) * Daily weight MWF Status: Acute <Nik Ngo - Last Filed: 05/20/17 19:20> Objective - Vital Signs/Intake and Output Vital Signs (last 24 hours): Temp Pulse Resp BP Pulse Ox 98.1 F 84 20 107/67 98 05/20/17 15:37 05/20/17 15:37 05/20/17 15:37 05/20/17 15:37 05/20/17 15:37 Intake and Output: 05/20/17 05/21/17 18:59 06:59 Intake Total 1040 Balance 1040 - Medications Medications: Current Medications Acetylcysteine (Acetylcysteine 20%) 4 ml INH DAILY [facility] Stop: 06/27/17 11:31 Last Admin: 05/20/17 12:38 Dose: 4 ml Albuterol Sulfate (Albuterol 0.083% Inhal Tanesha (2.5 Mg/3 Ml) Ud) 2.5 mg INH RQ24 [facility] Last Admin: 05/20/17 12:38 Dose: 2.5 mg Albuterol/Ipratropium (Duoneb 3 Mg/0.5 Mg (3 Ml) Ud) 3 ml INH RQ6 [facility] Last Admin: 05/20/17 14:44 Dose: Not Given Ethambutol HCl (Myambutol) 400 mg PO TID [facility] Last Admin: 05/20/17 17:35 Dose: 400 mg Famotidine (Pepcid) 40 mg PO DAILY [facility] Last Admin: 05/20/17 10:17 Dose: 40 mg Imipenem/Cilastatin Sodium 250 (mg/ Sodium Chloride) 100 mls @ 100 mls/hr IV Q6H [facility] Isoniazid (Niazid) 300 mg PO DAILY [facility] Last Admin: 05/20/17 10:17 Dose: 300 mg Pyrazinamide (Pyrazinamide) 1,500 mg PO DAILY [facility] Last Admin: 05/20/17 10:17 Dose: 1,500 mg Pyridoxine HCl (Vitamin B6 50 Mg Tab) 50 mg PO DAILY [facility] Last Admin: 05/20/17 10:17 Dose: 50 mg Rifampin (Rifampin Cap) 600 mg PO DAILY [facility] Last Admin: 05/20/17 10: Dose: 600 mg Saccharomyces Boulardii (Florastor) 250 mg PO BID [facility] Last Admin: 05/20/17 17:36 Dose: 250 mg - Labs Labs: 05/19/17 11:20 05/20/17 13:43 PT 15.3 SECONDS (9.7-12.2) H 05/09/17 13:53 INR 1.4 05/09/17 13:53 APTT 31 SECONDS (21-34) 05/09/17 13:53 Attending/Attestation - Attestation I have personally seen and examined this patient.: Yes I have fully participated in the care of the patient.: Yes I have reviewed all pertinent clinical information, including history, physical exam and plan: Yes Notes (Text): 05/20/17 19:13 Hospitalist Progress Note Patient was seen and examined at 10:45 AM 05/20/17 555 Please note that there seems to be some confusion with the Microbiology lab about saving sputums in the even that we need to perform additional testing on any positive sputums (ie Mycobacterium PCR). Nurse Ramirez was informed by the lab that nurses would have to separate the sputums on the floor and then send down to the microbiology lab. Because of this, we have ordered Mycobacterium PCR for 05/20 through 05/22. Also plan is to have 3 consecutive sputums negative for AFB before discharging to home and therefore sputum induction with Mucomyst/Albuterol and Sputum AFB have been ordered daily in the mornings. Medicine Team will speak with the [facility] to see if they agree with this plan. Nik Ngo D.O.
[2017-05-20] MEDS: Saccharomyces Boulardi 250 mg Cap PO SCH ×2 (10:17→17:36)
[2017-05-20] MEDS: Acetylcysteine 20% Inhal Soln (4ml) INH SCH (12:38)
[2017-05-20] MEDS: Albuterol 0.083% Inhal Sol (2.5 mg/3 mL) UD INH SCH (12:38)
[2017-05-20 14:02] LABS: ALB/GLOB RATIO 0.9 (1.0-2.1); ALBUMIN 3.5 g/dL (3.5-5.0); ALT/SGPT 77 U/L (21-72); AST/SGOT 45 U/L (17-59); BLOOD UREA NITROGEN 12 mg/dL (9-20); GFR AFRICAN-AMERICAN > 60; GFR NON-AFRICAN AMERICAN > 60
[2017-05-20] MEDS ORDERED: Potassium Chloride 20 mEq ER Tab PO ONE (15:28)
[2017-05-21] MEDS: Albuterol-Ipratrop 3 mg / 0.5 (3 ml) UD INH SCH ×4 (01:59→20:07)
[2017-05-21] MEDS: Albuterol 0.083% Inhal Sol (2.5 mg/3 mL) UD INH SCH (07:12)
[2017-05-21] MEDS: Acetylcysteine 20% Inhal Soln (4ml) INH SCH ×2 (07:13→08:00)
--- NOTE | 2017-05-21 07:16 | CP.PCM.PN ---
<Kristal Perea - Last Filed: 05/21/17 16:00> Subjective - Date & Time of Evaluation Date of Evaluation: 05/21/17 Time of Evaluation: 07:16 - Subjective Subjective: Medicine Progress Note: Hospitalist Service Patient seen and examined at bedside. Per nursing no acute events overnight. Patient complaining of anal itching that started 3 days ago. States that itchiness has been getting worse. Offers no other complaints. Denies headaches, dizziness, visual changes, chest pain, palpitations, sob, abdominal pain, urinary symptoms, changes in bowel habits. Objective - Vital Signs/Intake and Output Vital Signs (last 24 hours): Temp Pulse Resp BP Pulse Ox 98.0 F 89 20 106/66 97 05/20/17 23:56 05/20/17 23:56 05/20/17 23:56 05/20/17 23:56 05/20/17 23:56 Intake and Output: 05/21/17 05/21/17 06:59 18:59 Intake Total 100 Balance 100 - Medications Medications: Current Medications Acetylcysteine (Acetylcysteine 20%) 4 ml INH DAILY [facility] Stop: 06/27/17 11:31 Last Admin: 05/21/17 07:13 Dose: 4 ml Albuterol Sulfate (Albuterol 0.083% Inhal Tanesha (2.5 Mg/3 Ml) Ud) 2.5 mg INH RQ24 [facility] Last Admin: 05/21/17 07:12 Dose: 2.5 mg Albuterol/Ipratropium (Duoneb 3 Mg/0.5 Mg (3 Ml) Ud) 3 ml INH RQ6 [facility] Last Admin: 05/21/17 07:13 Dose: Not Given Ethambutol HCl (Myambutol) 400 mg PO TID [facility] Last Admin: 05/20/17 17:35 Dose: 400 mg Famotidine (Pepcid) 40 mg PO DAILY [facility] Last Admin: 05/20/17 10:17 Dose: 40 mg Imipenem/Cilastatin Sodium 250 (mg/ Sodium Chloride) 100 mls @ 100 mls/hr IV Q6H [facility] Last Admin: 05/21/17 03:30 Dose: 100 mls/hr Isoniazid (Niazid) 300 mg PO DAILY [facility] Last Admin: 05/20/17 10:17 Dose: 300 mg Pyrazinamide (Pyrazinamide) 1,500 mg PO DAILY [facility] Last Admin: 05/20/17 10:17 Dose: 1,500 mg Pyridoxine HCl (Vitamin B6 50 Mg Tab) 50 mg PO DAILY [facility] Last Admin: 05/20/17 10:17 Dose: 50 mg Rifampin (Rifampin Cap) 600 mg PO DAILY [facility] Last Admin: 05/20/17 10:17 Dose: 600 mg Saccharomyces Boulardii (Florastor) 250 mg PO BID [facility] Last Admin: 05/20/17 17:36 Dose: 250 mg - Labs Labs: 05/19/17 11:20 05/20/17 13:43 PT 15.3 SECONDS (9.7-12.2) H 05/09/17 13:53 INR 1.4 05/09/17 13:53 APTT 31 SECONDS (21-34) 05/09/17 13:53 - Constitutional Appears: Well, No Acute Distress - Head Exam Head Exam: ATRAUMATIC, NORMAL INSPECTION - Eye Exam Eye Exam: EOMI, Normal appearance - ENT Exam ENT Exam: Mucous Membranes Moist - Neck Exam Neck Exam: Full ROM - Respiratory Exam Respiratory Exam: Clear to Ausculation Bilateral, NORMAL BREATHING PATTERN. absent: Accessory Muscle Use, Decreased Breath Sounds, Rales, Rhonchi, Wheezes - Cardiovascular Exam Cardiovascular Exam: REGULAR RHYTHM, +S1, +S2. absent: Murmur - GI/Abdominal Exam GI & Abdominal Exam: Soft, Normal Bowel Sounds. absent: Distended, Firm, Guarding, Rigid, Tenderness - Rectal Exam Additional comments: Dry, flaky skin surrounding anus, no scalpy borders noted - Extremities Exam Extremities Exam: Full ROM, Normal Capillary Refill, Normal Inspection. absent : Calf Tenderness Additional comments: +pedal pulses +radial pulses - Back Exam Back Exam: NORMAL INSPECTION - Neurological Exam Neurological Exam: Alert, Awake, CN II-XII Intact, Normal Gait, Oriented x3 - Psychiatric Exam Psychiatric exam: Normal Affect, Normal Mood - Skin Skin Exam: Dry, Normal Color, Warm Assessment and Plan (1) Cavitary lesion of lung Assessment & Plan: * Presented with Hemoptysis with Right Upper Lobe cavitary lesion, hemoptysis has since resolved * Patient is on Airborne precautions * Infectious Disease: Dr Espinoza on board-->help appreciated * Pulmonary: Dr. 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) * Quantiferon gold test positive * Mycobacterium 05/09: no acid fast bacilli seen, culture no growth * Mycobacterium 05/10: no acid fast bacilli seen, culture no growth * Mycobacterium 05/11: no acid fast bacilli seen, culture no growth * Mycobacterium 05/12: Rare 1+ acid fast bacilli seen, culture pending * Mycobacterium 05/20: no acid fast bacilli seen, culture pending * Sputum induction with Mucomyst/Albuterol * AFB sputum collection daily, Mycobacterium PCR for 05/20 through 05/22 * Patient to have three consecutive negative AFB prior to discharge home * Case management referral for chest clinic in progress, State has also been notified * Thoracic surgery consulted, Dr Kate, help appreciated * No surgical intervention at this time. Recommending to continue with IV antibiotics * Active since 05/11/17 * Ethmabutol 400mg PO TID * Isoniazid 300mg PO daily * Prazinamide 1500mg PO daily * Pyridoxine 50mg PO daily * Rifampin 600mg PO daily * Abx: * Primaxin 250mg IVPB Q6H (active since 05/12/17) * Clindamycin 600mg IVPB Q8H (Discontinued) * Florastor 250mg PO BID * HIV 1+2 screening: negative, Hepatitis panel = negative * Blood cultures = no growth * LFTs currently stable, will f/u am CMP * Will monitor labs 3x week * Imaging: * Chest xray on 05/09: Right upper lobe infiltrate with central cavitary lesion ; also appears to be some patchy early infiltrate. * Abd/Pelvis CT on 05/09: No acute abdominal or pelvic abnormality; Constipation; No evidence of bowel obstruction; Multifocal right lower lobe pneumonia. * CT Chest on 05/09: large area of dense consolidation seen throughout a large portion of mid to posterior aspect of right upper lobe with associated prominent air bronchograms. additional prominent areas of scattered consolidative changes and scattered areas of tree-in-bud opacities seen in right middle and lower lobes. concern for acute infectious and inflammatory changes suggestive of multifocal pneumonia. 1cm focal area of nodular consolidation in lateral aspect of left lung apex (series 3, image 28) with scattered areas of consolidative changes seen within mid to inferior aspect of left upper lobe measuring 1cm on series 3, image 60 up to 2.1 cm on series 3 image 60. concerning for multifocal pneumonia. Left paratracheal lymph nodes 1.2 cm Status: Acute (2) Klebsiella pneumonia Assessment & Plan: * Sputum cx from admission grew klebsiella, sensitivites reviewed * Abx: Imipenem 500 mg IV Q6H, Clindamycin 600mg Q8H (discontinued) * Urine legionella, mycoplasma = negative * ID consulted, Dr. Espinoza; f/u recommendations * Pulmonology consulted, Dr. Pham; f/u recommendations Status: Acute (3) Weight loss, unintentional Assessment & Plan: * Weight appears to have stabilized * Ensure Enlive TID for supplementation * Will Continue weights MWF * Nuclear Auxiliary Operator referral placed Status: Acute (4) Lichen planus Assessment & Plan: * Patient states having 3 day history of anal itching * Synalar 0.025% BID ordered * If no improvement by Friday, will consider punch biopsy Status: Acute (5) Black stools Assessment & Plan: * Had one episode of black tarry stools, likely secondary to hemopytsis * GI was consulted, no intervention at this time Status: Resolved (6) RUQ abdominal pain Assessment & Plan: * Abdominal pain resolved * Abdominal US showed no acute findings * Hepatitis panel negative * CT abdomen/pelvis (05/09): no acute abdominal or pelvic abnormality, Constipation. No evidence of bowel obstruction. Multifocal right lower lobe pneumonia Status: Resolved (7) Hypokalemia Assessment & Plan: * Potassium repleted, with f/u am CMP * Will continue to monitor labs MWF (3x weekly) Status: Resolved (8) Prophylactic measure Assessment & Plan: * GI ppx: Pepcid 40mg PO daily * SCDs (No DVT ppx indicated at this time) * Daily weight MWF Status: Acute <Nik Ngo - Last Filed: 05/21/17 17:42> Objective - Vital Signs/Intake and Output Vital Signs (last 24 hours): Temp Pulse Resp BP Pulse Ox 98.2 F 84 20 98/61 L 96 05/21/17 15:52 05/21/17 15:52 05/21/17 15:52 05/21/17 15:52 05/21/17 15:52 Intake and Output: 05/21/17 05/21/17 06:59 18:59 Intake Total 100 680 Balance 100 680 - Medications Medications: Current Medications Acetylcysteine (Acetylcysteine 20%) 4 ml INH RQD [facility] Last Admin: 05/21/17 08:00 Dose: Not Given Albuterol Sulfate (Albuterol 0.083% Inhal Tanesha (2.5 Mg/3 Ml) Ud) 2.5 mg INH RQ24 [facility] Last Admin: 05/21/17 07:12 Dose: 2.5 mg Albuterol/Ipratropium (Duoneb 3 Mg/0.5 Mg (3 Ml) Ud) 3 ml INH RQ6 [facility] Last Admin: 05/21/17 13:54 Dose: 3 ml Ethambutol HCl (Myambutol) 400 mg PO TID [facility] Last Admin: 05/21/17 17:21 Dose: 400 mg Famotidine (Pepcid) 40 mg PO DAILY [facility] Last Admin: 05/21/17 09:47 Dose: 40 mg Fluocinolone Acetonide (Synalar 0.01% Cream) 0 gm TOP BID [facility] Last Admin: 05/21/17 17:21 Dose: 1 applic Imipenem/Cilastatin Sodium 250 (mg/ Sodium Chloride) 100 mls @ 100 mls/hr IV Q6 [facility] Last Admin: 05/21/17 17:21 Dose: 100 mls/hr Isoniazid (Niazid) 300 mg PO DAILY [facility] Last Admin: 05/21/17 09:47 Dose: 300 mg Pyrazinamide (Pyrazinamide) 1,500 mg PO DAILY [facility] Last Admin: 05/21/17 09:48 Dose: 1,500 mg Pyridoxine HCl (Vitamin B6 50 Mg Tab) 50 mg PO DAILY [facility] Last Admin: 05/21/17 09:48 Dose: 50 mg Rifampin (Rifampin Cap) 600 mg PO DAILY [facility] Last Admin: 05/21/17 09:47 Dose: 600 mg Saccharomyces Boulardii (Florastor) 250 mg PO BID [facility] Last Admin: 05/21/17 17:21 Dose: 250 mg - Labs Labs: 05/21/17 11:25 05/21/17 11:25 PT 15.3 SECONDS (9.7-12.2) H 05/09/17 13:53 INR 1.4 05/09/17 13:53 APTT 31 SECONDS (21-34) 05/09/17 13:53 Attending/Attestation - Attestation I have personally seen and examined this patient.: Yes I have fully participated in the care of the patient.: Yes I have reviewed all pertinent clinical information, including history, physical exam and plan: Yes Notes (Text): 05/21/17 17:41 Patient was seen and examined with the resident. Exam, assessment and plan were thoroughly gone over with the Resident. Nik Ngo D.O.
[2017-05-21] MEDS: Saccharomyces Boulardi 250 mg Cap PO SCH ×2 (09:47→17:21)
[2017-05-21] MEDS ORDERED: FLUOCINOLONE ACETONIDE 0.025% TOP SCH (10:00)
[2017-05-21 11:47] LABS: BASO # 0.1 K/uL (0.0-0.2); BASO % 0.7 % (0.0-2.0); EOS # 0.5 K/uL (0.0-0.7); HEMOGLOBIN 13.7 g/dL (12.0-18.0); LYMPH # 0.8 K/uL (1.0-4.3); LYMPH % 8.4 % (20.0-40.0); MEAN CELL VOLUME 84.9 fL (80.0-94.0); MEAN CORPUSCULAR HEMOGLOBIN 29.1 pg (27.0-31.0); MEAN CORPUSCULAR HGB CONC 34.3 g/dL (33.0-37.0); MONO # 0.7 K/uL (0.0-0.8); MONO % 7.4 % (0.0-10.0); NEUT # 7.3 K/uL (1.8-7.0); NEUT % 78.5 % (50.0-75.0); PLATELET COUNT 451 K/uL (130-400); RBC 4.71 Mil/uL (4.40-5.90); RED CELL DISTRIBUTION WIDTH 13.2 % (11.5-14.5); WHITE BLOOD COUNT 9.3 K/uL (4.8-10.8)
[2017-05-21 12:06] LABS: ALBUMIN 3.6 g/dL (3.5-5.0); ALT/SGPT 66 U/L (21-72); AST/SGOT 55 U/L (17-59); BLOOD UREA NITROGEN 13 mg/dL (9-20); CALCIUM 8.3 mg/dl (8.6-10.4); GFR AFRICAN-AMERICAN > 60; GFR NON-AFRICAN AMERICAN > 60
[2017-05-21 12:09] LABS: BANDS 2 % (0-2); EOSINOPHIL 5 % (0-4); LYMPHOCYTE 7 % (20-40); MONOCYTE 5 % (0-10); NEUTROPHIL 81 % (50-75); PLATELET ESTIMATE SLIGHTLY INCREASED (NORMAL); TOTAL CELLS COUNTED 100
[2017-05-21] MEDS ORDERED: Potassium Chloride 20 mEq ER Tab PO ONE (13:20)
[2017-05-21] MEDS: Fluocinolone Acetonide 0.01% (15 gm) Cream TOP SCH ×2 (13:42→17:21)
[2017-05-22] MEDS: Albuterol-Ipratrop 3 mg / 0.5 (3 ml) UD INH SCH ×3 (01:59→20:05)
--- NOTE | 2017-05-22 07:07 | CP.PCM.PN ---
<Kristal Perea - Last Filed: 05/22/17 11:22> Subjective - Date & Time of Evaluation Date of Evaluation: 05/22/17 Time of Evaluation: 07:07 - Subjective Subjective: Medicine Progress Note: Hospitalist Service Patient seen and examined at bedside. Per nursing no acute events overnight. Patient is doing well, states that anal itching has improved with the steroid cream. Offers no complaints at this time. Denies visual changes, headaches, dizziness, cp, palpitations, sob, abdominal pain, urinary symptoms, changes in bowel habits. Objective - Vital Signs/Intake and Output Vital Signs (last 24 hours): Temp Pulse Resp BP Pulse Ox 98.2 F 76 20 108/67 97 05/22/17 00:07 05/22/17 00:07 05/22/17 00:07 05/22/17 00:07 05/22/17 00:07 - Medications Medications: Current Medications Acetylcysteine (Acetylcysteine 20%) 4 ml INH RQD [facility] Last Admin: 05/21/17 08:00 Dose: Not Given Albuterol Sulfate (Albuterol 0.083% Inhal Tanesha (2.5 Mg/3 Ml) Ud) 2.5 mg INH RQ24 [facility] Last Admin: 05/21/17 07:12 Dose: 2.5 mg Albuterol/Ipratropium (Duoneb 3 Mg/0.5 Mg (3 Ml) Ud) 3 ml INH RQ6 [facility] Last Admin: 05/22/17 01:59 Dose: Not Given Ethambutol HCl (Myambutol) 400 mg PO TID [facility] Last Admin: 05/21/17 17:21 Dose: 400 mg Famotidine (Pepcid) 40 mg PO DAILY [facility] Last Admin: 05/21/17 09:47 Dose: 40 mg Fluocinolone Acetonide (Synalar 0.01% Cream) 0 gm TOP BID [facility] Last Admin: 05/21/17 17:21 Dose: 1 applic Imipenem/Cilastatin Sodium 250 (mg/ Sodium Chloride) 100 mls @ 100 mls/hr IV Q6 [facility] Last Admin: 05/22/17 05:34 Dose: 100 mls/hr Isoniazid (Niazid) 300 mg PO DAILY [facility] Last Admin: 05/21/17 09:47 Dose: 300 mg Pyrazinamide (Pyrazinamide) 1,500 mg PO DAILY [facility] Last Admin: 05/21/17 09:48 Dose: 1,500 mg Pyridoxine HCl (Vitamin B6 50 Mg Tab) 50 mg PO DAILY [facility] Last Admin: 05/21/17 09:48 Dose: 50 mg Rifampin (Rifampin Cap) 600 mg PO DAILY [facility] Last Admin: 05/21/17 09:47 Dose: 600 mg Saccharomyces Boulardii (Florastor) 250 mg PO BID [facility] Last Admin: 05/21/17 17:21 Dose: 250 mg - Labs Labs: 05/21/17 11:25 05/21/17 11:25 PT 15.3 SECONDS (9.7-12.2) H 05/09/17 13:53 INR 1.4 05/09/17 13:53 APTT 31 SECONDS (21-34) 05/09/17 13:53 - Constitutional Appears: Well, No Acute Distress - Head Exam Head Exam: ATRAUMATIC, NORMAL INSPECTION - Eye Exam Eye Exam: EOMI, Normal appearance - ENT Exam ENT Exam: Mucous Membranes Moist - Respiratory Exam Respiratory Exam: Clear to Ausculation Bilateral, NORMAL BREATHING PATTERN. absent: Rales, Rhonchi, Wheezes - Cardiovascular Exam Cardiovascular Exam: REGULAR RHYTHM, +S1, +S2 - GI/Abdominal Exam GI & Abdominal Exam: Soft, Normal Bowel Sounds. absent: Guarding, Rigid, Tenderness - Rectal Exam Rectal Exam: Deferred - Extremities Exam Extremities Exam: Normal Inspection. absent: Calf Tenderness - Back Exam Back Exam: NORMAL INSPECTION - Neurological Exam Neurological Exam: Alert, Awake, CN II-XII Intact, Normal Gait, Oriented x3 - Psychiatric Exam Psychiatric exam: Normal Affect, Normal Mood - Skin Skin Exam: Dry, Normal Color, Warm Assessment and Plan (1) Cavitary lesion of lung Assessment & Plan: * Presented with Hemoptysis with Right Upper Lobe cavitary lesion, hemoptysis has since resolved * Patient is on Airborne precautions * Infectious Disease: Dr Espinoza on board-->help appreciated * Pulmonary: Dr. 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 * Mycobacterium collected on 05/09: No acid fast bacilli seen, culture - acid fast bacilli present in liquid cx medium, identification to follow * Mycobacterium collected on 05/10: No acid fast bacilli seen, culture - no mycobacterium isolated * Mycobacterium collected on 05/11: No acid fast bacilli seen, culture - no mycobacterium isolated * Mycobacterium 05/12: Rare 1+ acid fast bacilli seen, culture - acid fast bacilli present in liquid cx medium, identification to follow * Mycobacterium 05/20: No acid fast bacilli seen, culture pending * Sputum induction with Mucomyst/Albuterol * AFB sputum collection daily, Mycobacterium PCR for 05/20 through 05/22 * Patient to have three consecutive negative AFB prior to discharge home ( confirmed this with chest clinic) * Case management referral for chest clinic in progress, State has also been notified * Thoracic surgery consulted, Dr Kate, help appreciated * No surgical intervention at this time. Recommending to continue with IV antibiotics * Active since 05/11/17 * Ethmabutol 400mg PO TID * Isoniazid 300mg PO daily * Prazinamide 1500mg PO daily * Pyridoxine 50mg PO daily * Rifampin 600mg PO daily * Abx: * Primaxin 250mg IVPB Q6H (active since 05/12/17) * Clindamycin 600mg IVPB Q8H (Discontinued) * Florastor 250mg PO BID * HIV 1+2 screening: negative, Hepatitis panel = negative * Blood cultures = no growth * LFTs currently stable, will monitor closely * Will monitor labs 3x week * Imaging: * Chest xray on 05/09: Right upper lobe infiltrate with central cavitary lesion ; also appears to be some patchy early infiltrate. * Abd/Pelvis CT on 05/09: No acute abdominal or pelvic abnormality; Constipation; No evidence of bowel obstruction; Multifocal right lower lobe pneumonia. * CT Chest on 05/09: large area of dense consolidation seen throughout a large portion of mid to posterior aspect of right upper lobe with associated prominent air bronchograms. additional prominent areas of scattered consolidative changes and scattered areas of tree-in-bud opacities seen in right middle and lower lobes. concern for acute infectious and inflammatory changes suggestive of multifocal pneumonia. 1cm focal area of nodular consolidation in lateral aspect of left lung apex (series 3, image 28) with scattered areas of consolidative changes seen within mid to inferior aspect of left upper lobe measuring 1cm on series 3, image 60 up to 2.1 cm on series 3 image 60. concerning for multifocal pneumonia. Left paratracheal lymph nodes 1.2 cm Status: Acute (2) Klebsiella pneumonia Assessment & Plan: * Sputum cx from admission grew klebsiella, sensitivites reviewed * Abx: Imipenem 500 mg IV Q6H, Clindamycin 600mg Q8H (discontinued) * Urine legionella, urine strep, mycoplasma = negative * ID consulted, Dr. Espinoza; f/u recommendations * Pulmonology consulted, Dr. Pham; f/u recommendations Status: Acute (3) Weight loss, unintentional Assessment & Plan: * Weight appears to have stabilized * Ensure Enlive TID for supplementation * Will Continue weights MWF * Paint Mixer referral placed Status: Acute (4) Lichen planus Assessment & Plan: * Patient states having 3 day history of anal itching, which is now improving * Continue Synalar 0.01% BID * If no improvement by Friday, will consider punch biopsy Status: Acute (5) Black stools Assessment & Plan: * Had one episode of black tarry stools, likely secondary to hemopytsis * GI was consulted, no intervention at this time Status: Resolved (6) RUQ abdominal pain Assessment & Plan: * Abdominal pain resolved * Abdominal US showed no acute findings * Hepatitis panel negative * CT abdomen/pelvis (05/09): no acute abdominal or pelvic abnormality, Constipation. No evidence of bowel obstruction. Multifocal right lower lobe pneumonia Status: Resolved (7) Hypokalemia Assessment & Plan: * Potassium repleted * Will continue to monitor labs MWF (3x weekly) Status: Resolved (8) Prophylactic measure Assessment & Plan: * GI ppx: Pepcid 40mg PO daily * SCDs (No DVT ppx indicated at this time) * Daily weight MWF Status: Acute <Nik Ngo - Last Filed: 05/22/17 15:30> Objective - Vital Signs/Intake and Output Vital Signs (last 24 hours): Temp Pulse Resp BP Pulse Ox 97.6 F 79 20 103/64 97 05/22/17 07:37 05/22/17 07:37 05/22/17 07:37 05/22/17 07:37 05/22/17 07:37 Intake and Output: 05/22/17 05/22/17 06:59 18:59 Intake Total 580 Balance 580 - Medications Medications: Current Medications Acetylcysteine (Acetylcysteine 20%) 4 ml INH RQD [facility] Last Admin: 05/22/17 07:59 Dose: 4 ml Albuterol Sulfate (Albuterol 0.083% Inhal Tanesha (2.5 Mg/3 Ml) Ud) 2.5 mg INH RQ24 [facility] Last Admin: 05/22/17 07:59 Dose: 2.5 mg Albuterol/Ipratropium (Duoneb 3 Mg/0.5 Mg (3 Ml) Ud) 3 ml INH RQ6 [facility] Last Admin: 05/22/17 10:56 Dose: Not Given Ethambutol HCl (Myambutol) 400 mg PO TID [facility] Last Admin: 05/22/17 13:07 Dose: 400 mg Famotidine (Pepcid) 40 mg PO DAILY [facility] Last Admin: 05/22/17 09:07 Dose: 40 mg Fluocinolone Acetonide (Synalar 0.01% Cream) 0 gm TOP BID [facility] Last Admin: 05/22/17 09:07 Dose: 1 applic Imipenem/Cilastatin Sodium 250 (mg/ Sodium Chloride) 100 mls @ 100 mls/hr IV Q6 [facility] Last Admin: 05/22/17 13:07 Dose: 100 mls/hr Isoniazid (Niazid) 300 mg PO DAILY [facility] Last Admin: 05/22/17 09:07 Dose: 300 mg Pyrazinamide (Pyrazinamide) 1,500 mg PO DAILY [facility] Last Admin: 05/22/17 09:06 Dose: 1,500 mg Pyridoxine HCl (Vitamin B6 50 Mg Tab) 50 mg PO DAILY [facility] Last Admin: 05/22/17 09:07 Dose: 50 mg Rifampin (Rifampin Cap) 600 mg PO DAILY [facility] Last Admin: 05/22/17 09:06 Dose: 600 mg Saccharomyces Boulardii (Florastor) 250 mg PO BID [facility] Last Admin: 05/22/17 09:07 Dose: 250 mg - Labs Labs: 05/21/17 11:25 05/21/17 11:25 PT 15.3 SECONDS (9.7-12.2) H 05/09/17 13:53 INR 1.4 05/09/17 13:53 APTT 31 SECONDS (21-34) 05/09/17 13:53 Attending/Attestation - Attestation I have personally seen and examined this patient.: Yes I have fully participated in the care of the patient.: Yes I have reviewed all pertinent clinical information, including history, physical exam and plan: Yes Notes (Text): 05/22/17 15:16 Hospitalist Progress Note Patient was seen and examined at 8:20 AM 05/22/17. Exam, assessment and plan were thoroughly gone over with the resident. I spoke with account executive sales representative from [facility] Ms Marie Cardozo [phone] and from their standpoint patient may be discharged to continue outpatient treatment with [facility] therapy with them as AFB Sputums were negative on 05/09, 05/10, 05/11. I will speak with ID Dr. Espinoza concerning this issue as well as recommendations concerning IV to PO antibiotic switch for the Klebsiella Pneumonia. Nik Ngo D.O.
[2017-05-22] MEDS: Albuterol 0.083% Inhal Sol (2.5 mg/3 mL) UD INH SCH (07:59)
[2017-05-22] MEDS: Acetylcysteine 20% Inhal Soln (4ml) INH SCH (07:59)
[2017-05-22] MEDS: Saccharomyces Boulardi 250 mg Cap PO SCH ×2 (09:07→17:39)
[2017-05-22] MEDS: Fluocinolone Acetonide 0.01% (15 gm) Cream TOP SCH ×2 (09:07→17:39)
--- NOTE | 2017-05-22 17:03 | CP.PCM.PN ---
Subjective - Date & Time of Evaluation Date of Evaluation: 05/22/17 Time of Evaluation: 08:00 - Subjective Subjective: improving afb neg x1 need 3 neg afb's consecutively tried to contact [facility] liason and Infection Control here at unsuccessfully to arrange out pt rx Objective - Vital Signs/Intake and Output Vital Signs (last 24 hours): Temp Pulse Resp BP Pulse Ox 98.1 F 91 H 20 110/66 95 05/22/17 15:21 05/22/17 15:21 05/22/17 15:21 05/22/17 15:21 05/22/17 15:21 Intake and Output: 05/22/17 05/22/17 06:59 18:59 Intake Total 580 Balance 580 - Medications Medications: Current Medications Acetylcysteine (Acetylcysteine 20%) 4 ml INH RQD [facility] Last Admin: 05/22/17 07:59 Dose: 4 ml Albuterol Sulfate (Albuterol 0.083% Inhal Tanesha (2.5 Mg/3 Ml) Ud) 2.5 mg INH RQ24 [facility] Last Admin: 05/22/17 07:59 Dose: 2.5 mg Albuterol/Ipratropium (Duoneb 3 Mg/0.5 Mg (3 Ml) Ud) 3 ml INH RQ6 [facility] Last Admin: 05/22/17 10:56 Dose: Not Given Ethambutol HCl (Myambutol) 400 mg PO TID [facility] Last Admin: 05/22/17 13:07 Dose: 400 mg Famotidine (Pepcid) 40 mg PO DAILY [facility] Last Admin: 05/22/17 09:07 Dose: 40 mg Fluocinolone Acetonide (Synalar 0.01% Cream) 0 gm TOP BID [facility] Last Admin: 05/22/17 09:07 Dose: 1 applic Imipenem/Cilastatin Sodium 250 (mg/ Sodium Chloride) 100 mls @ 100 mls/hr IV Q6 [facility] Last Admin: 05/22/17 13:07 Dose: 100 mls/hr Isoniazid (Niazid) 300 mg PO DAILY [facility] Last Admin: 05/22/17 09:07 Dose: 300 mg Pyrazinamide (Pyrazinamide) 1,500 mg PO DAILY [facility] Last Admin: 05/22/17 09:06 Dose: 1,500 mg Pyridoxine HCl (Vitamin B6 50 Mg Tab) 50 mg PO DAILY [facility] Last Admin: 05/22/17 09:07 Dose: 50 mg Rifampin (Rifampin Cap) 600 mg PO DAILY [facility] Last Admin: 05/22/17 09:06 Dose: 600 mg Saccharomyces Boulardii (Florastor) 250 mg PO BID [facility] Last Admin: 05/22/17 09:07 Dose: 250 mg - Labs Labs: 05/21/17 11:25 05/21/17 11:25 PT 15.3 SECONDS (9.7-12.2) H 05/09/17 13:53 INR 1.4 05/09/17 13:53 APTT 31 SECONDS (21-34) 05/09/17 13:53 Assessment and Plan (1) Cavitary lesion of lung Status: Acute (2) Cavitary pneumonia Status: Acute (3) Hemoptysis Status: Acute (4) Pneumonia Status: Acute
[2017-05-23] MEDS: Albuterol-Ipratrop 3 mg / 0.5 (3 ml) UD INH SCH ×4 (01:54→20:35)
[2017-05-23] MEDS: Albuterol 0.083% Inhal Sol (2.5 mg/3 mL) UD INH SCH (08:11)
[2017-05-23] MEDS: Acetylcysteine 20% Inhal Soln (4ml) INH SCH (08:11)
[2017-05-23 08:37] LABS: BASO # 0.1 K/uL (0.0-0.2); BASO % 1.3 % (0.0-2.0); EOS # 0.6 K/uL (0.0-0.7); EOS % 7.2 % (0.0-4.0); HEMOGLOBIN 13.8 g/dL (12.0-18.0); LYMPH # 0.8 K/uL (1.0-4.3); LYMPH % 9.5 % (20.0-40.0); MEAN CORPUSCULAR HEMOGLOBIN 29.9 pg (27.0-31.0); MEAN CORPUSCULAR HGB CONC 34.7 g/dL (33.0-37.0); MEAN PLATELET VOLUME 7.1 fL (7.2-11.7); MONO # 0.7 K/uL (0.0-0.8); MONO % 8.6 % (0.0-10.0); NEUT # 6.1 K/uL (1.8-7.0); NEUT % 73.4 % (50.0-75.0); NRBC % 0.1 % (0.0-2.0); PLATELET COUNT 410 K/uL (130-400); RBC 4.61 Mil/uL (4.40-5.90); RED CELL DISTRIBUTION WIDTH 13.2 % (11.5-14.5); WHITE BLOOD COUNT 8.3 K/uL (4.8-10.8)
[2017-05-23 08:48] LABS: ALBUMIN 3.4 g/dL (3.5-5.0); ALT/SGPT 70 U/L (21-72); AST/SGOT 41 U/L (17-59); BLOOD UREA NITROGEN 12 mg/dL (9-20); CALCIUM 8.1 mg/dl (8.6-10.4); GFR AFRICAN-AMERICAN > 60; GFR NON-AFRICAN AMERICAN > 60
[2017-05-23 09:29] LABS: BANDS 1 % (0-2); EOSINOPHIL 8 % (0-4); LYMPHOCYTE 7 % (20-40); MONOCYTE 9 % (0-10); NEUTROPHIL 75 % (50-75); PLATELET ESTIMATE NORMAL (NORMAL); TOTAL CELLS COUNTED 100
[2017-05-23] MEDS: Fluocinolone Acetonide 0.01% (15 gm) Cream TOP SCH ×2 (09:47→17:49)
[2017-05-23] MEDS: Saccharomyces Boulardi 250 mg Cap PO SCH ×2 (09:51→17:49)
--- NOTE | 2017-05-23 10:32 | CP.PCM.PN ---
<Kristal Perea - Last Filed: 05/23/17 16:13> Subjective - Date & Time of Evaluation Date of Evaluation: 05/23/17 Time of Evaluation: : - Subjective Subjective: Medicine Progress Note: Hospitalist Service Patient seen and examined at bedside. Per nursing no acute events overnight. Patient is doing well, offers no complaints at this time. Anal itching has improved. Denies headaches, visual changes, dizziness, cp, palpitations, sob, abdominal pain, urinary symptoms, changes in bowel habits. Objective - Vital Signs/Intake and Output Vital Signs (last 24 hours): Temp Pulse Resp BP Pulse Ox 97.8 F 79 18 104/67 96 05/23/17 08:12 05/23/17 08:12 05/23/17 08:12 05/23/17 08:12 05/23/17 08:12 Intake and Output: 05/23/17 05/23/17 06:59 18:59 Intake Total 200 Balance 200 - Medications Medications: Current Medications Acetylcysteine (Acetylcysteine 20%) 4 ml [facility]H RQD [facility] Last Admin: 05/23/17 08:11 Dose: 4 ml Albuterol Sulfate (Albuterol 0.083% Inhal Tanesha (2.5 Mg/3 Ml) Ud) 2.5 mg INH RQ24 [facility] Last Admin: 05/23/17 08:11 Dose: 2.5 mg Albuterol/Ipratropium (Duoneb 3 Mg/0.5 Mg (3 Ml) Ud) 3 ml INH RQ6 [facility] Last Admin: 05/23/17 08:11 Dose: Not Given Ethambutol HCl (Myambutol) 400 mg PO TID [facility] Last Admin: 05/23/17 09:57 Dose: 400 mg Famotidine (Pepcid) 40 mg PO DAILY [facility] Last Admin: 05/23/17 09:45 Dose: 40 mg Fluocinolone Acetonide (Synalar 0.01% Cream) 0 gm TOP BID [facility] Last Admin: 05/23/17 09:47 Dose: 1 applic Imipenem/Cilastatin Sodium 250 (mg/ Sodium Chloride) 100 mls @ 100 mls/hr IV Q6 [facility] Last Admin: 05/23/17 05:58 Dose: 100 mls/hr Isoniazid (Niazid) 300 mg PO DAILY [facility] Last Admin: 12/29/17 09:45 Dose: 300 mg Pyrazinamide (Pyrazinamide) 1,500 mg PO DAILY [facility] Last Admin: 05/23/17 09:46 Dose: 1,500 mg Pyridoxine HCl (Vitamin B6 50 Mg Tab) 50 mg PO DAILY [facility] Last Admin: 05/23/17 09:45 Dose: 50 mg Rifampin (Rifampin Cap) 600 mg PO DAILY [facility] Last Admin: 05/23/17 09:51 Dose: 600 mg Saccharomyces Boulardii (Florastor) 250 mg PO BID [facility] Last Admin: 05/23/17 09:51 Dose: 250 mg - Labs Labs: 05/23/17 08:27 05/23/17 08:27 PT 15.3 SECONDS (9.7-12.2) H 05/09/17 13:53 INR 1.4 05/09/17 13:53 APTT 31 SECONDS (21-34) 05/09/17 13:53 - Constitutional Appears: Well, No Acute Distress - Head Exam Head Exam: ATRAUMATIC, NORMAL INSPECTION - Eye Exam Eye Exam: EOMI, Normal appearance - ENT Exam ENT Exam: Mucous Membranes Moist - Neck Exam Neck Exam: Full ROM - Respiratory Exam Respiratory Exam: Clear to Ausculation Bilateral, NORMAL BREATHING PATTERN. absent: Rales, Rhonchi, Wheezes - Cardiovascular Exam Cardiovascular Exam: REGULAR RHYTHM, +S1, +S2. absent: Murmur - GI/Abdominal Exam GI & Abdominal Exam: Soft, Normal Bowel Sounds. absent: Firm, Guarding, Rigid, Tenderness - Rectal Exam Rectal Exam: Deferred - Extremities Exam Extremities Exam: Normal Inspection. absent: Calf Tenderness - Back Exam Back Exam: NORMAL INSPECTION - Neurological Exam Neurological Exam: Alert, Awake, CN II-XII Intact, Normal Gait, Oriented x3 - Psychiatric Exam Psychiatric exam: Normal Affect, Normal Mood - Skin Skin Exam: Dry, Normal Color, Warm Assessment and Plan (1) Cavitary lesion of lung Assessment & Plan: * Presented with Hemoptysis with Right Upper Lobe cavitary lesion, hemoptysis has since resolved * Patient is on Airborne precautions * Infectious Disease: Dr Espinoza on board-->help appreciated * Pulmonary: Dr. 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 * Mycobacterium collected on 05/09: No acid fast bacilli seen, culture - acid fast bacilli present in liquid cx medium, identification to follow * Mycobacterium collected on 05/10: No acid fast bacilli seen, culture - no mycobacterium isolated * Mycobacterium collected on 05/11: No acid fast bacilli seen, culture - no mycobacterium isolated * Mycobacterium 05/12: Rare 1+ acid fast bacilli seen, culture - acid fast bacilli present in liquid cx medium, identification to follow * Mycobacterium 05/20: No acid fast bacilli seen, culture pending ( Mycobacterium PCR - detected) * Sputum induction with Mucomyst/Albuterol * AFB sputum collection daily, Mycobacterium PCR for 05/20 through 05/22 * Patient to have three consecutive negative AFB prior to discharge home ( confirmed this with chest clinic) * Case management referral for chest clinic in progress, State has also been notified * Thoracic surgery consulted, Dr Kate, help appreciated * No surgical intervention at this time. Recommending to continue with IV antibiotics * Active since 05/11/17 * Ethmabutol 400mg PO TID * Isoniazid 300mg PO daily * Prazinamide 1500mg PO daily * Pyridoxine 50mg PO daily * Rifampin 600mg PO daily * Abx: * Primaxin 250mg IVPB Q6H (active since 05/12/17) * Clindamycin 600mg IVPB Q8H (Discontinued) * Florastor 250mg PO BID * HIV 1+2 screening: negative, Hepatitis panel = negative * Blood cultures = no growth * LFTs currently stable, will monitor closely * Will monitor labs 3x week * Imaging: * Chest xray on 05/09: Right upper lobe infiltrate with central cavitary lesion ; also appears to be some patchy early infiltrate. * Abd/Pelvis CT on 05/09: No acute abdominal or pelvic abnormality; Constipation; No evidence of bowel obstruction; Multifocal right lower lobe pneumonia. * CT Chest on 05/09: large area of dense consolidation seen throughout a large portion of mid to posterior aspect of right upper lobe with associated prominent air bronchograms. additional prominent areas of scattered consolidative changes and scattered areas of tree-in-bud opacities seen in right middle and lower lobes. concern for acute infectious and inflammatory changes suggestive of multifocal pneumonia. 1cm focal area of nodular consolidation in lateral aspect of left lung apex (series 3, image 28) with scattered areas of consolidative changes seen within mid to inferior aspect of left upper lobe measuring 1cm on series 3, image 60 up to 2.1 cm on series 3 image 60. concerning for multifocal pneumonia. Left paratracheal lymph nodes 1.2 cm Status: Acute (2) Klebsiella pneumonia Assessment & Plan: * Sputum cx from admission grew klebsiella, sensitivites reviewed * Abx: Imipenem 250 mg IV Q6H, Clindamycin 600mg Q8H (discontinued) * Urine legionella, urine strep, mycoplasma = negative * ID consulted, Dr. Espinoza; f/u recommendations * Pulmonology consulted, Dr. Pham; f/u recommendations Status: Acute (3) Weight loss, unintentional Assessment & Plan: * Weight appears to have stabilized * Ensure Enlive TID for supplementation * Will Continue weights MWF * Ict Sales Assistant referral placed Status: Acute (4) Lichen planus Assessment & Plan: * Patient states having 3 day history of anal itching, which is now improving * Continue Synalar 0.01% BID * If no improvement by Friday, will consider punch biopsy Status: Acute (5) Black stools Assessment & Plan: * Had one episode of black tarry stools, likely secondary to hemopytsis * GI was consulted, no intervention at this time Status: Resolved (6) RUQ abdominal pain Assessment & Plan: * Abdominal pain resolved * Abdominal US showed no acute findings * Hepatitis panel negative * CT abdomen/pelvis (05/09): no acute abdominal or pelvic abnormality, Constipation. No evidence of bowel obstruction. Multifocal right lower lobe pneumonia Status: Resolved (7) Hypokalemia Assessment & Plan: * Will continue to monitor and replete as needed Status: Resolved (8) Prophylactic measure Assessment & Plan: * GI ppx: Pepcid 40mg PO daily * SCDs (No DVT ppx indicated at this time) * Daily weight MWF Status: Acute <Nik Ngo - Last Filed: 05/23/17 18:09> Objective - Vital Signs/Intake and Output Vital Signs (last 24 hours): Temp Pulse Resp BP Pulse Ox 98.6 F 81 20 109/71 97 05/23/17 16:08 05/23/17 16:08 05/23/17 16:08 05/23/17 16:08 05/23/17 16:08 Intake and Output: 05/23/17 05/23/17 06:59 18:59 Intake Total 200 820 Balance 200 820 - Medications Medications: Current Medications Acetylcysteine (Acetylcysteine 20%) 4 ml INH RQD [facility] Last Admin: 05/23/17 08:11 Dose: 4 ml Albuterol Sulfate (Albuterol 0.083% Inhal Tanesha (2.5 Mg/3 Ml) Ud) 2.5 mg INH RQ24 [facility] Last Admin: 05/23/17 08:11 Dose: 2.5 mg Albuterol/Ipratropium (Duoneb 3 Mg/0.5 Mg (3 Ml) Ud) 3 ml INH RQ6 [facility] Last Admin: 05/23/17 13:29 Dose: 3 ml Ethambutol HCl (Myambutol) 400 mg PO TID [facility] Last Admin: 05/23/17 17:49 Dose: 400 mg Famotidine (Pepcid) 40 mg PO DAILY [facility] Last Admin: 05/23/17 09:45 Dose: 40 mg Fluocinolone Acetonide (Synalar 0.01% Cream) 0 gm TOP BID [facility] Last Admin: 05/23/17 17:49 Dose: 1 applic Imipenem/Cilastatin Sodium 250 (mg/ Sodium Chloride) 100 mls @ 100 mls/hr IV Q6 [facility] Last Admin: 05/23/17 17:50 Dose: 100 mls/hr Isoniazid (Niazid) 300 mg PO DAILY [facility] Last Admin: 05/23/17 09:45 Dose: 300 mg Pyrazinamide (Pyrazinamide) 1,500 mg PO DAILY [facility] Last Admin: 05/23/17 09:46 Dose: 1,500 mg Pyridoxine HCl (Vitamin B6 50 Mg Tab) 50 mg PO DAILY [facility] Last Admin: 05/23/17 09:45 Dose: 50 mg Rifampin (Rifampin Cap) 600 mg PO DAILY [facility] Last Admin: 05/23/17 09:51 Dose: 600 mg Saccharomyces Boulardii (Florastor) 250 mg PO BID [facility] Last Admin: 05/23/17 17:49 Dose: 250 mg - Labs Labs: 05/23/17 08:27 05/23/17 08:27 PT 15.3 SECONDS (9.7-12.2) H 05/09/17 13:53 INR 1.4 05/09/17 13:53 APTT 31 SECONDS (21-34) 05/09/17 13:53 Attending/Attestation - Attestation I have personally seen and examined this patient.: Yes I have fully participated in the care of the patient.: Yes I have reviewed all pertinent clinical information, including history, physical exam and plan: Yes Notes (Text): 05/23/17 18:08 Hospitalist Progress Note Patient was seen and examined at 3:30 PM 05/23/17. Exam, assessment and plan were thoroughly gone over with the resident.
--- NOTE | 2017-05-24 01:36 | CP.PCM.PN ---
<Arnaldo Alan - Last Filed: 05/24/17 01:34> Subjective - Date & Time of Evaluation Date of Evaluation: 05/24/17 Time of Evaluation: 01:34 - Subjective Subjective: Medicine Progress Note: Hospitalist Service Patient seen and examined at bedside. Per nursing no acute events overnight. Patient is doing well, offers no complaints at this time. Anal itching has improved. Denies headaches, visual changes, dizziness, cp, palpitations, sob, abdominal pain, urinary symptoms, changes in bowel habits. Objective - Vital Signs/Intake and Output Vital Signs (last 24 hours): Temp Pulse Resp BP Pulse Ox 97.8 F 85 20 105/63 95 05/23/17 23:15 05/23/17 23:15 05/23/17 23:15 05/23/17 23:15 05/23/17 23:15 Intake and Output: 05/23/17 05/24/17 18:59 06:59 Intake Total 820 Balance 820 - Medications Medications: Current Medications Acetylcysteine (Acetylcysteine 20%) 4 ml INH RQD [facility] Last Admin: 05/23/17 08:11 Dose: 4 ml Albuterol Sulfate (Albuterol 0.083% Inhal Tanesha (2.5 Mg/3 Ml) Ud) 2.5 mg INH RQ24 [facility] Last Admin: 05/23/17 08:11 Dose: 2.5 mg Albuterol/Ipratropium (Duoneb 3 Mg/0.5 Mg (3 Ml) Ud) 3 ml INH RQ6 [facility] Last Admin: 05/23/17 20:35 Dose: 3 ml Ethambutol HCl (Myambutol) 400 mg PO TID [facility] Last Admin: 05/23/17 17:49 Dose: 400 mg Famotidine (Pepcid) 40 mg PO DAILY [facility] Last Admin: 05/23/17 09:45 Dose: 40 mg Fluocinolone Acetonide (Synalar 0.01% Cream) 0 gm TOP BID [facility] Last Admin: 05/23/17 17:49 Dose: 1 applic Imipenem/Cilastatin Sodium 250 (mg/ Sodium Chloride) 100 mls @ 100 mls/hr IV Q6 [facility] Last Admin: 05/23/17 23:48 Dose: 100 mls/hr Isoniazid (Niazid) 300 mg PO DAILY [facility] Last Admin: 05/23/17 09:45 Dose: 300 mg Pyrazinamide (Pyrazinamide) 1,500 mg PO DAILY [facility] Last Admin: 05/23/17 09:46 Dose: 1,500 mg Pyridoxine HCl (Vitamin B6 50 Mg Tab) 50 mg PO DAILY [facility] Last Admin: 05/23/17 09:45 Dose: 50 mg Rifampin (Rifampin Cap) 600 mg PO DAILY [facility] Last Admin: 05/23/17 09:51 Dose: 600 mg Saccharomyces Boulardii (Florastor) 250 mg PO BID [facility] Last Admin: 05/23/17 17:49 Dose: 250 mg - Labs Labs: 05/23/17 08:27 05/23/17 08:27 PT 15.3 SECONDS (9.7-12.2) H 05/09/17 13:53 INR 1.4 05/09/17 13:53 APTT 31 SECONDS (21-34) 05/09/17 13:53 - Additional Findings Additional findings: - Constitutional Appears: Well, No Acute Distress - Head Exam Head Exam: ATRAUMATIC, NORMAL INSPECTION - Eye Exam Eye Exam: EOMI, Normal appearance - ENT Exam ENT Exam: Mucous Membranes Moist - Neck Exam Neck Exam: Full ROM - Respiratory Exam Respiratory Exam: Clear to Ausculation Bilateral, NORMAL BREATHING PATTERN. absent: Rales, Rhonchi, Wheezes - Cardiovascular Exam Cardiovascular Exam: REGULAR RHYTHM, +S1, +S2. absent: Murmur - GI/Abdominal Exam GI & Abdominal Exam: Soft, Normal Bowel Sounds. absent: Firm, Guarding, Rigid, Tenderness - Rectal Exam Rectal Exam: Deferred - Extremities Exam Extremities Exam: Normal Inspection. absent: Calf Tenderness - Back Exam Back Exam: NORMAL INSPECTION - Neurological Exam Neurological Exam: Alert, Awake, CN II-XII Intact, Normal Gait, Oriented x3 - Psychiatric Exam Psychiatric exam: Normal Affect, Normal Mood - Skin Skin Exam: Dry, Normal Color, Warm Assessment and Plan - Assessment and Plan (Free Text) Assessment: (1) Cavitary lesion of lung Assessment & Plan: * Presented with Hemoptysis with Right Upper Lobe cavitary lesion, hemoptysis has since resolved * Patient is on Airborne precautions * Infectious Disease: Dr Espinoza on board-->help appreciated * Pulmonary: Dr. 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 * Mycobacterium collected on 05/09: No acid fast bacilli seen, culture - acid fast bacilli present in liquid cx medium, identification to follow * Mycobacterium collected on 05/10: No acid fast bacilli seen, culture - no mycobacterium isolated * Mycobacterium collected on 05/11: No acid fast bacilli seen, culture - no mycobacterium isolated * Mycobacterium 05/12: Rare 1+ acid fast bacilli seen, culture - acid fast bacilli present in liquid cx medium, identification to follow * Mycobacterium 05/20: No acid fast bacilli seen, culture pending ( Mycobacterium PCR - detected) * Sputum induction with Mucomyst/Albuterol * AFB sputum collection daily, Mycobacterium PCR for 05/20 through 05/22 * Patient to have three consecutive negative AFB prior to discharge home ( confirmed this with chest clinic) * Case management referral for chest clinic in progress, State has also been notified * Thoracic surgery consulted, Dr Kate, help appreciated * No surgical intervention at this time. Recommending to continue with IV antibiotics * Active since 05/11/17 * Ethmabutol 400mg PO TID * Isoniazid 300mg PO daily * Prazinamide 1500mg PO daily * Pyridoxine 50mg PO daily * Rifampin 600mg PO daily * Abx: * Primaxin 250mg IVPB Q6H (active since 05/12/17) * Clindamycin 600mg IVPB Q8H (Discontinued) * Florastor 250mg PO BID * HIV 1+2 screening: negative, Hepatitis panel = negative * Blood cultures = no growth * LFTs currently stable, will monitor closely * Will monitor labs 3x week * Imaging: * Chest xray on 05/09: Right upper lobe infiltrate with central cavitary lesion ; also appears to be some patchy early infiltrate. * Abd/Pelvis CT on 05/09: No acute abdominal or pelvic abnormality; Constipation; No evidence of bowel obstruction; Multifocal right lower lobe pneumonia. * CT Chest on 05/09: large area of dense consolidation seen throughout a large portion of mid to posterior aspect of right upper lobe with associated prominent air bronchograms. additional prominent areas of scattered consolidative changes and scattered areas of tree-in-bud opacities seen in right middle and lower lobes. concern for acute infectious and inflammatory changes suggestive of multifocal pneumonia. 1cm focal area of nodular consolidation in lateral aspect of left lung apex (series 3, image 28) with scattered areas of consolidative changes seen within mid to inferior aspect of left upper lobe measuring 1cm on series 3, image 60 up to 2.1 cm on series 3 image 60. concerning for multifocal pneumonia. Left paratracheal lymph nodes 1.2 cm Status: Acute (2) Klebsiella pneumonia Assessment & Plan: * Sputum cx from admission grew klebsiella, sensitivites reviewed * Abx: Imipenem 250 mg IV Q6H, Clindamycin 600mg Q8H (discontinued) * Urine legionella, urine strep, mycoplasma = negative * ID consulted, Dr. Espinoza; f/u recommendations * Pulmonology consulted, Dr. Pham; f/u recommendations Status: Acute (3) Weight loss, unintentional Assessment & Plan: * Weight appears to have stabilized * Ensure Enlive TID for supplementation * Will Continue weights MWF * Epidemiologist referral placed Status: Acute (4) Lichen planus Assessment & Plan: * Patient states having 3 day history of anal itching, which is now improving * Continue Synalar 0.01% BID * If no improvement by Friday, will consider punch biopsy Status: Acute (5) Black stools Assessment & Plan: * Had one episode of black tarry stools, likely secondary to hemopytsis * GI was consulted, no intervention at this time Status: Resolved (6) RUQ abdominal pain Assessment & Plan: * Abdominal pain resolved * Abdominal US showed no acute findings * Hepatitis panel negative * CT abdomen/pelvis (05/09): no acute abdominal or pelvic abnormality, Constipation. No evidence of bowel obstruction. Multifocal right lower lobe pneumonia Status: Resolved (7) Hypokalemia Assessment & Plan: * Will continue to monitor and replete as needed Status: Resolved (8) Prophylactic measure Assessment & Plan: * GI ppx: Pepcid 40mg PO daily * SCDs (No DVT ppx indicated at this time) * Daily weight MWF Status: Acute <Nik Ngo - Last Filed: 05/24/17 19:04> Objective - Vital Signs/Intake and Output Vital Signs (last 24 hours): Temp Pulse Resp BP Pulse Ox 98.1 F 92 H 20 102/65 96 05/24/17 15:31 05/24/17 15:31 05/24/17 15:31 05/24/17 15:31 05/24/17 15:31 Intake and Output: 05/24/17 05/24/17 06:59 18:59 Intake Total 400 Balance 400 - Medications Medications: Current Medications Acetaminophen (Tylenol 325mg Tab) 650 mg PO Q6 PRN PRN Reason: Headache Acetylcysteine (Acetylcysteine 20%) 4 ml INH RQD [facility] Last Admin: 05/24/17 08:53 Dose: 4 ml Albuterol Sulfate (Albuterol 0.083% Inhal Tanesha (2.5 Mg/3 Ml) Ud) 2.5 mg INH RQ24 [facility] Last Admin: 05/24/17 08:53 Dose: 2.5 mg Albuterol/Ipratropium (Duoneb 3 Mg/0.5 Mg (3 Ml) Ud) 3 ml INH RQ6 [facility] Last Admin: 05/24/17 14:03 Dose: 3 ml Ethambutol HCl (Myambutol) 400 mg PO TID [facility] Last Admin: 05/24/17 17:42 Dose: 400 mg Famotidine (Pepcid) 40 mg PO DAILY [facility] Last Admin: 05/24/17 10:35 Dose: 40 mg Fluocinolone Acetonide (Synalar 0.01% Cream) 0 gm TOP BID [facility] Last Admin: 05/24/17 17:48 Dose: 1 applic Imipenem/Cilastatin Sodium 250 (mg/ Sodium Chloride) 100 mls @ 100 mls/hr IV Q6 [facility] Last Admin: 05/24/17 17:42 Dose: 100 mls/hr Isoniazid (Niazid) 300 mg PO DAILY [facility] Last Admin: 05/24/17 10:35 Dose: 300 mg Pyrazinamide (Pyrazinamide) 1,500 mg PO DAILY [facility] Last Admin: 05/24/17 10:36 Dose: 1,500 mg Pyridoxine HCl (Vitamin B6 50 Mg Tab) 50 mg PO DAILY [facility] Last Admin: 05/24/17 10:36 Dose: 50 mg Rifampin (Rifampin Cap) 600 mg PO DAILY [facility] Last Admin: 05/24/17 10:35 Dose: 600 mg Saccharomyces Boulardii (Florastor) 250 mg PO BID [facility] Last Admin: 05/24/17 17:41 Dose: 250 mg - Labs Labs: 05/24/17 07:50 05/24/17 07:50 PT 15.3 SECONDS (9.7-12.2) H 05/09/17 13:53 INR 1.4 05/09/17 13:53 APTT 31 SECONDS (21-34) 05/09/17 13:53 Attending/Attestation - Attestation I have personally seen and examined this patient.: Yes I have fully participated in the care of the patient.: Yes I have reviewed all pertinent clinical information, including history, physical exam and plan: Yes Notes (Text): 05/24/17 18:52 Patient was seen and examined at 4:15 PM. Anal itching is much better since the start of Fluocinolone. AFB Sputum 05/23/17 is negative. However, 05/21 and 05/22 still not reported. Spoke with information technology officer and nurse that we must make sure that sputums are being sent everyday. Confirmed with ID Dr. Espinoza that we need 3 consecutive sputums negative for AFB PRIOR to discharging patient from respiratory isolation. This was also explained to patient. [facility] contact is Marie Cardozo ([phone] Extension 2008, ): she is aware of the patient and has tested his friends who live with patient. She will need Rx for RIPE Therapy prior to discharging patient. She will then arrange for RIPE therapy to be given to patient. Nik Ngo D.O.
[2017-05-24] MEDS: Albuterol-Ipratrop 3 mg / 0.5 (3 ml) UD INH SCH ×5 (02:16→22:10)
[2017-05-24 08:04] LABS: BASO # 0.1 K/uL (0.0-0.2); BASO % 0.8 % (0.0-2.0); EOS # 0.5 K/uL (0.0-0.7); EOS % 5.2 % (0.0-4.0); HEMOGLOBIN 13.6 g/dL (12.0-18.0); LYMPH # 0.7 K/uL (1.0-4.3); LYMPH % 8.1 % (20.0-40.0); MEAN CELL VOLUME 85.5 fL (80.0-94.0); MEAN CORPUSCULAR HEMOGLOBIN 29.4 pg (27.0-31.0); MEAN CORPUSCULAR HGB CONC 34.4 g/dL (33.0-37.0); MEAN PLATELET VOLUME 7.3 fL (7.2-11.7); MONO # 0.8 K/uL (0.0-0.8); MONO % 8.9 % (0.0-10.0); NEUT # 7.1 K/uL (1.8-7.0); NRBC % 0.1 % (0.0-2.0); PLATELET COUNT 380 K/uL (130-400); RBC 4.63 Mil/uL (4.40-5.90); RED CELL DISTRIBUTION WIDTH 13.2 % (11.5-14.5); WHITE BLOOD COUNT 9.2 K/uL (4.8-10.8)
[2017-05-24] MEDS: Acetylcysteine 20% Inhal Soln (4ml) INH SCH (08:53)
[2017-05-24] MEDS: Albuterol 0.083% Inhal Sol (2.5 mg/3 mL) UD INH SCH (08:53)
[2017-05-24 09:03] LABS: ALBUMIN 3.5 g/dL (3.5-5.0); ALT/SGPT 75 U/L (21-72); AST/SGOT 46 U/L (17-59); BLOOD UREA NITROGEN 11 mg/dL (9-20); CALCIUM 8.3 mg/dl (8.6-10.4); GFR AFRICAN-AMERICAN > 60; GFR NON-AFRICAN AMERICAN > 60
[2017-05-24 09:37] LABS: EOSINOPHIL 7 % (0-4); LYMPHOCYTE 9 % (20-40); MONOCYTE 5 % (0-10); NEUTROPHIL 79 % (50-75); PLATELET ESTIMATE NORMAL (NORMAL); TOTAL CELLS COUNTED 100
[2017-05-24] MEDS: Saccharomyces Boulardi 250 mg Cap PO SCH ×2 (10:35→17:41)
[2017-05-24] MEDS: Fluocinolone Acetonide 0.01% (15 gm) Cream TOP SCH ×2 (10:36→17:48)
--- NOTE | 2017-05-25 00:49 | CP.PCM.PN ---
<Arnaldo Alan R - Last Filed: 05/25/17 00:47> Subjective - Date & Time of Evaluation Date of Evaluation: 05/25/17 Time of Evaluation: 00:47 - Subjective Subjective: Medicine Progress Note: Hospitalist Service Patient seen and examined at bedside. Per nursing no acute events overnight. Patient is doing well, offers no complaints at this time. Anal itching has improved. Denies headaches, visual changes, dizziness, cp, palpitations, sob, abdominal pain, urinary symptoms, changes in bowel habits. Objective - Vital Signs/Intake and Output Vital Signs (last 24 hours): Temp Pulse Resp BP Pulse Ox 98.7 F 94 H 20 113/69 95 05/24/17 22:30 05/24/17 22:30 05/24/17 22:30 05/24/17 22:30 05/24/17 22:30 Intake and Output: 05/24/17 05/25/17 18:59 06:59 Intake Total 400 Balance 400 - Medications Medications: Current Medications Acetaminophen (Tylenol 325mg Tab) 650 mg PO Q6 PRN PRN Reason: Headache Acetylcysteine (Acetylcysteine 20%) 4 ml INH RQD [facility] Last Admin: 05/24/17 08:53 Dose: 4 ml Albuterol Sulfate (Albuterol 0.083% Inhal Tanesha (2.5 Mg/3 Ml) Ud) 2.5 mg INH RQ24 [facility] Last Admin: 05/24/17 08:53 Dose: 2.5 mg Albuterol/Ipratropium (Duoneb 3 Mg/0.5 Mg (3 Ml) Ud) 3 ml INH RQ6 [facility] Last Admin: 05/24/17 22:10 Dose: 3 ml Ethambutol HCl (Myambutol) 400 mg PO TID [facility] Last Admin: 05/24/17 17:42 Dose: 400 mg Famotidine (Pepcid) 40 mg PO DAILY [facility] Last Admin: 05/24/17 10:35 Dose: 40 mg Fluocinolone Acetonide (Synalar 0.01% Cream) 0 gm TOP BID [facility] Last Admin: 05/24/17 17:48 Dose: 1 applic Imipenem/Cilastatin Sodium 250 (mg/ Sodium Chloride) 100 mls @ 100 mls/hr IV Q6 [facility] Last Admin: 05/24/17 17:42 Dose: 100 mls/hr Isoniazid (Niazid) 300 mg PO DAILY [facility] Last Admin: 05/24/17 10:35 Dose: 300 mg Pyrazinamide (Pyrazinamide) 1,500 mg PO DAILY [facility] Last Admin: 05/24/17 10:36 Dose: 1,500 mg Pyridoxine HCl (Vitamin B6 50 Mg Tab) 50 mg PO DAILY [facility] Last Admin: 05/24/17 10:36 Dose: 50 mg Rifampin (Rifampin Cap) 600 mg PO DAILY [facility] Last Admin: 05/24/17 10:35 Dose: 600 mg Saccharomyces Boulardii (Florastor) 250 mg PO BID [facility] Last Admin: 05/24/17 17:41 Dose: 250 mg - Labs Labs: 05/24/17 07:50 05/24/17 07:50 PT 15.3 SECONDS (9.7-12.2) H 05/09/17 13:53 INR 1.4 05/09/17 13:53 APTT 31 SECONDS (21-34) 05/09/17 13:53 - Additional Findings Additional findings: - Constitutional Appears: Well, No Acute Distress - Head Exam Head Exam: ATRAUMATIC, NORMAL INSPECTION - Eye Exam Eye Exam: EOMI, Normal appearance - ENT Exam ENT Exam: Mucous Membranes Moist - Neck Exam Neck Exam: Full ROM - Respiratory Exam Respiratory Exam: Clear to Ausculation Bilateral, NORMAL BREATHING PATTERN. absent: Rales, Rhonchi, Wheezes - Cardiovascular Exam Cardiovascular Exam: REGULAR RHYTHM, +S1, +S2. absent: Murmur - GI/Abdominal Exam GI & Abdominal Exam: Soft, Normal Bowel Sounds. absent: Firm, Guarding, Rigid, Tenderness - Rectal Exam Rectal Exam: Deferred - Extremities Exam Extremities Exam: Normal Inspection. absent: Calf Tenderness - Back Exam Back Exam: NORMAL INSPECTION - Neurological Exam Neurological Exam: Alert, Awake, CN II-XII Intact, Normal Gait, Oriented x3 - Psychiatric Exam Psychiatric exam: Normal Affect, Normal Mood - Skin Skin Exam: Dry, Normal Color, Warm Assessment and Plan - Assessment and Plan (Free Text) Assessment: (1) Cavitary lesion of lung Assessment & Plan: * Presented with Hemoptysis with Right Upper Lobe cavitary lesion, hemoptysis has since resolved * Patient is on Airborne precautions * Infectious Disease: Dr Espinoza on board-->help appreciated * Pulmonary: Dr. 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 * Mycobacterium collected on 05/09: No acid fast bacilli seen, culture - acid fast bacilli present in liquid cx medium, identification to follow * Mycobacterium collected on 05/10: No acid fast bacilli seen, culture - no mycobacterium isolated * Mycobacterium collected on 05/11: No acid fast bacilli seen, culture - no mycobacterium isolated * Mycobacterium 05/12: Rare 1+ acid fast bacilli seen, culture - acid fast bacilli present in liquid cx medium, identification to follow * Mycobacterium 05/20: No acid fast bacilli seen, culture pending ( Mycobacterium PCR - detected) * Sputum induction with Mucomyst/Albuterol * AFB sputum collection daily, Mycobacterium PCR for 05/20 through 05/22 * Patient to have three consecutive negative AFB prior to discharge home ( confirmed this with chest clinic) * Case management referral for chest clinic in progress, State has also been notified * Thoracic surgery consulted, Dr Kate, help appreciated * No surgical intervention at this time. Recommending to continue with IV antibiotics * Active since 05/11/17 * Ethmabutol 400mg PO TID * Isoniazid 300mg PO daily * Prazinamide 1500mg PO daily * Pyridoxine 50mg PO daily * Rifampin 600mg PO daily * Abx: * Primaxin 250mg IVPB Q6H (active since 05/12/17) * Clindamycin 600mg IVPB Q8H (Discontinued) * Florastor 250mg PO BID * HIV 1+2 screening: negative, Hepatitis panel = negative * Blood cultures = no growth * LFTs currently stable, will monitor closely * Will monitor labs 3x week * Imaging: * Chest xray on 05/09: Right upper lobe infiltrate with central cavitary lesion ; also appears to be some patchy early infiltrate. * Abd/Pelvis CT on 05/09: No acute abdominal or pelvic abnormality; Constipation; No evidence of bowel obstruction; Multifocal right lower lobe pneumonia. * CT Chest on 05/09: large area of dense consolidation seen throughout a large portion of mid to posterior aspect of right upper lobe with associated prominent air bronchograms. additional prominent areas of scattered consolidative changes and scattered areas of tree-in-bud opacities seen in right middle and lower lobes. concern for acute infectious and inflammatory changes suggestive of multifocal pneumonia. 1cm focal area of nodular consolidation in lateral aspect of left lung apex (series 3, image 28) with scattered areas of consolidative changes seen within mid to inferior aspect of left upper lobe measuring 1cm on series 3, image 60 up to 2.1 cm on series 3 image 60. concerning for multifocal pneumonia. Left paratracheal lymph nodes 1.2 cm Status: Acute (2) Klebsiella pneumonia Assessment & Plan: * Sputum cx from admission grew klebsiella, sensitivites reviewed * Abx: Imipenem 250 mg IV Q6H, Clindamycin 600mg Q8H (discontinued) * Urine legionella, urine strep, mycoplasma = negative * ID consulted, Dr. Espinoza; f/u recommendations * Pulmonology consulted, Dr. Pham; f/u recommendations Status: Acute (3) Weight loss, unintentional Assessment & Plan: * Weight appears to have stabilized * Ensure Enlive TID for supplementation * Will Continue weights MWF * Real Estate Site Analyst referral placed Status: Acute (4) Lichen planus Assessment & Plan: * Patient states having 3 day history of anal itching, which is now improving * Continue Synalar 0.01% BID * If no improvement by Friday, will consider punch biopsy Status: Acute (5) Black stools Assessment & Plan: * Had one episode of black tarry stools, likely secondary to hemopytsis * GI was consulted, no intervention at this time Status: Resolved (6) RUQ abdominal pain Assessment & Plan: * Abdominal pain resolved * Abdominal US showed no acute findings * Hepatitis panel negative * CT abdomen/pelvis (05/09): no acute abdominal or pelvic abnormality, Constipation. No evidence of bowel obstruction. Multifocal right lower lobe pneumonia Status: Resolved (7) Hypokalemia Assessment & Plan: * Will continue to monitor and replete as needed Status: Resolved (8) Prophylactic measure Assessment & Plan: * GI ppx: Pepcid 40mg PO daily * SCDs (No DVT ppx indicated at this time) * Daily weight MWF DISPOSITION: Confirmed with ID Dr. Espinoza that we need 3 consecutive sputums negative for AFB PRIOR to discharging patient from respiratory isolation. [facility] contact is Marie Cardozo ([phone] Extension 2008, ): she is aware of the patient and has tested his friends who live with patient. She will need Rx for RIPE Therapy prior to discharging patient. She will then arrange for RIPE therapy to be given to patient. <NgoYonasNik J - Last Filed: 05/25/17 20:09> Objective - Vital Signs/Intake and Output Vital Signs (last 24 hours): Temp Pulse Resp BP Pulse Ox 98.9 F 82 20 119/71 99 05/25/17 15:30 05/25/17 15:30 05/25/17 15:30 05/25/17 15:30 05/25/17 15:30 - Medications Medications: Current Medications Acetaminophen (Tylenol 325mg Tab) 650 mg PO Q6 PRN PRN Reason: Headache Acetylcysteine (Acetylcysteine 20%) 4 ml INH RQD [facility] Last Admin: 05/25/17 07:47 Dose: 4 ml Albuterol Sulfate (Albuterol 0.083% Inhal Tanesha (2.5 Mg/3 Ml) Ud) 2.5 mg INH RQ24 [facility] Last Admin: 05/25/17 07:47 Dose: 2.5 mg Albuterol/Ipratropium (Duoneb 3 Mg/0.5 Mg (3 Ml) Ud) 3 ml INH RQ6 [facility] Last Admin: 05/25/17 13:44 Dose: 3 ml Ethambutol HCl (Myambutol) 400 mg PO TID [facility] Last Admin: 05/25/17 19:19 Dose: 400 mg Famotidine (Pepcid) 40 mg PO DAILY [facility] Last Admin: 05/25/17 10:50 Dose: 40 mg Fluocinolone Acetonide (Synalar 0.01% Cream) 0 gm TOP BID [facility] Last Admin: 05/25/17 19:20 Dose: 1 applic Imipenem/Cilastatin Sodium 250 (mg/ Sodium Chloride) 100 mls @ 100 mls/hr IV Q6 [facility] Last Admin: 05/25/17 19:19 Dose: 100 mls/hr Isoniazid (Niazid) 300 mg PO DAILY [facility] Last Admin: 05/25/17 10:47 Dose: 300 mg Pyrazinamide (Pyrazinamide) 1,500 mg PO DAILY [facility] Last Admin: 05/25/17 10:47 Dose: 1,500 mg Pyridoxine HCl (Vitamin B6 50 Mg Tab) 50 mg PO DAILY [facility] Last Admin: 05/25/17 10:58 Dose: 50 mg Rifampin (Rifampin Cap) 600 mg PO DAILY [facility] Last Admin: 05/25/17 10:47 Dose: 600 mg Saccharomyces Boulardii (Florastor) 250 mg PO BID [facility] Last Admin: 05/25/17 19:19 Dose: 250 mg - Labs Labs: 05/25/17 07:49 05/25/17 07:49 PT 15.3 SECONDS (9.7-12.2) H 05/09/17 13:53 INR 1.4 05/09/17 13:53 APTT 31 SECONDS (21-34) 05/09/17 13:53 Attending/Attestation - Attestation I have personally seen and examined this patient.: Yes I have fully participated in the care of the patient.: Yes I have reviewed all pertinent clinical information, including history, physical exam and plan: Yes Notes (Text): 05/25/17 20:05 Patient was seen and examined at 3:45 PM. Anal itching continues to improve since the start of Fluocinolone and this should be continued for a total of 7 days. AFB Sputum 05/23/17 is negative. However, 05/21 and 05/22 still not reported. Spoke with orthodontic technician assistant and nurse 05/24/17 that we must make sure that sputums are being sent everyday. Confirmed with ID Dr. Espinoza that we need 3 consecutive sputums negative for AFB PRIOR to discharging patient from respiratory isolation. [facility] contact is Marie Cardozo ([phone] Extension 2008, ): she is aware of the patient and has tested his friends who live with patient. She will need Rx for RIPE Therapy prior to discharging patient. She will then arrange for RIPE therapy to be given to patient. Plan of care was also explained to patient with the help of Nurse Tanya who translated in [place]ian. Nik Ngo D.O.
[2017-05-25] MEDS: Albuterol-Ipratrop 3 mg / 0.5 (3 ml) UD INH SCH ×4 (01:19→20:13)
[2017-05-25] MEDS: Albuterol 0.083% Inhal Sol (2.5 mg/3 mL) UD INH SCH (07:47)
[2017-05-25] MEDS: Acetylcysteine 20% Inhal Soln (4ml) INH SCH (07:47)
[2017-05-25 08:04] LABS: BASO # 0.1 K/uL (0.0-0.2); BASO % 0.9 % (0.0-2.0); EOS # 0.4 K/uL (0.0-0.7); EOS % 5.7 % (0.0-4.0); HEMOGLOBIN 13.4 g/dL (12.0-18.0); LYMPH # 0.8 K/uL (1.0-4.3); LYMPH % 10.4 % (20.0-40.0); MEAN CELL VOLUME 86.4 fL (80.0-94.0); MEAN CORPUSCULAR HEMOGLOBIN 29.3 pg (27.0-31.0); MEAN CORPUSCULAR HGB CONC 33.9 g/dL (33.0-37.0); MEAN PLATELET VOLUME 7.2 fL (7.2-11.7); MONO # 0.7 K/uL (0.0-0.8); MONO % 10.1 % (0.0-10.0); NEUT # 5.3 K/uL (1.8-7.0); NEUT % 72.9 % (50.0-75.0); NRBC % 0.1 % (0.0-2.0); RBC 4.59 Mil/uL (4.40-5.90); RED CELL DISTRIBUTION WIDTH 13.8 % (11.5-14.5); WHITE BLOOD COUNT 7.2 K/uL (4.8-10.8)
[2017-05-25 08:42] LABS: ALBUMIN 3.4 g/dL (3.5-5.0); ALT/SGPT 71 U/L (21-72); AST/SGOT 46 U/L (17-59); BLOOD UREA NITROGEN 11 mg/dL (9-20); CALCIUM 8.1 mg/dl (8.6-10.4); GFR AFRICAN-AMERICAN > 60; GFR NON-AFRICAN AMERICAN > 60
[2017-05-25] MEDS: Saccharomyces Boulardi 250 mg Cap PO SCH ×2 (10:49→19:19)
[2017-05-25] MEDS: Fluocinolone Acetonide 0.01% (15 gm) Cream TOP SCH ×2 (10:50→19:20)
[2017-05-26] MEDS: Albuterol-Ipratrop 3 mg / 0.5 (3 ml) UD INH SCH ×4 (01:28→19:31)
--- NOTE | 2017-05-26 03:07 | CP.PCM.PN ---
<Lev Arteaga - Last Filed: 05/26/17 07:01> Subjective - Date & Time of Evaluation Date of Evaluation: 05/26/17 Time of Evaluation: 05:50 - Subjective Subjective: Medicine progress note for Dr. Mcclain Patient seen and examined at bedside. No acute complaints at this time. Anal itching remains improved. Objective - Vital Signs/Intake and Output Vital Signs (last 24 hours): Temp Pulse Resp BP Pulse Ox 98.3 F 84 20 102/56 L 98 05/25/17 23:25 05/25/17 23:25 05/25/17 23:25 05/25/17 23:25 05/25/17 23:25 - Medications Medications: Current Medications Acetaminophen (Tylenol 325mg Tab) 650 mg PO Q6 PRN PRN Reason: Headache Acetylcysteine (Acetylcysteine 20%) 4 ml INH RQD [facility] Last Admin: 05/25/17 07:47 Dose: 4 ml Albuterol Sulfate (Albuterol 0.083% Inhal Tanesha (2.5 Mg/3 Ml) Ud) 2.5 mg INH RQ24 [facility] Last Admin: 05/25/17 07:47 Dose: 2.5 mg Albuterol/Ipratropium (Duoneb 3 Mg/0.5 Mg (3 Ml) Ud) 3 ml INH RQ6 [facility] Last Admin: 05/26/17 01:28 Dose: 3 ml Ethambutol HCl (Myambutol) 400 mg PO TID [facility] Last Admin: 05/25/17 19:19 Dose: 400 mg Famotidine (Pepcid) 40 mg PO DAILY [facility] Last Admin: 05/25/17 10:50 Dose: 40 mg Fluocinolone Acetonide (Synalar 0.01% Cream) 0 gm TOP BID [facility] Last Admin: 05/25/17 19:20 Dose: 1 applic Imipenem/Cilastatin Sodium 250 (mg/ Sodium Chloride) 100 mls @ 100 mls/hr IV Q6 [facility] Last Admin: 05/26/17 00:17 Dose: 100 mls/hr Isoniazid (Niazid) 300 mg PO DAILY [facility] Last Admin: 05/25/17 10:47 Dose: 300 mg Pyrazinamide (Pyrazinamide) 1,500 mg PO DAILY [facility] Last Admin: 05/25/17 10:47 Dose: 1,500 mg Pyridoxine HCl (Vitamin B6 50 Mg Tab) 50 mg PO DAILY [facility] Last Admin: 05/25/17 10:58 Dose: 50 mg Rifampin (Rifampin Cap) 600 mg PO DAILY [facility] Last Admin: 05/25/17 10:47 Dose: 600 mg Saccharomyces Boulardii (Florastor) 250 mg PO BID [facility] Last Admin: 05/25/17 19:19 Dose: 250 mg - Labs Labs: 05/25/17 07:49 05/25/17 07:49 PT 15.3 SECONDS (9.7-12.2) H 05/09/17 13:53 INR 1.4 05/09/17 13:53 APTT 31 SECONDS (21-34) 05/09/17 13:53 - Constitutional Appears: No Acute Distress - Head Exam Head Exam: ATRAUMATIC, NORMOCEPHALIC - Eye Exam Eye Exam: EOMI, Normal appearance - ENT Exam ENT Exam: Mucous Membranes Moist - Respiratory Exam Respiratory Exam: Clear to Ausculation Bilateral, NORMAL BREATHING PATTERN. absent: Rales, Rhonchi, Wheezes - Cardiovascular Exam Cardiovascular Exam: REGULAR RHYTHM, +S1, +S2 - GI/Abdominal Exam GI & Abdominal Exam: Soft, Normal Bowel Sounds. absent: Distended, Guarding, Tenderness - Extremities Exam Extremities Exam: absent: Pedal Edema, Tenderness - Neurological Exam Neurological Exam: Alert, Awake, Oriented x3 - Psychiatric Exam Psychiatric exam: Normal Affect, Normal Mood - Skin Skin Exam: Dry, Warm Assessment and Plan - Assessment and Plan (Free Text) Plan: (1) Cavitary lesion of lung Assessment & Plan: * Presented with Hemoptysis with Right Upper Lobe cavitary lesion, hemoptysis has since resolved * Patient is on Airborne precautions * Infectious Disease: Dr Espinoza on board-->help appreciated * Pulmonary: Dr. 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 * Mycobacterium collected on 05/09: No acid fast bacilli seen, culture - acid fast bacilli present in liquid cx medium, identification to follow * Mycobacterium collected on 05/10: No acid fast bacilli seen, culture - no mycobacterium isolated * Mycobacterium collected on 05/11: No acid fast bacilli seen, culture - no mycobacterium isolated * Mycobacterium 05/12: Rare 1+ acid fast bacilli seen, culture - acid fast bacilli present in liquid cx medium, identification to follow * Mycobacterium 05/20: No acid fast bacilli seen, culture pending ( Mycobacterium PCR - detected) * Sputum induction with Mucomyst/Albuterol * AFB sputum collection daily, Mycobacterium PCR for 05/20 through 05/22 * Patient to have three consecutive negative AFB prior to discharge home ( confirmed this with chest clinic) * Case management referral for chest clinic in progress, State has also been notified * Thoracic surgery consulted, Dr Kate, help appreciated * No surgical intervention at this time. Recommending to continue with IV antibiotics * Active since 05/11/17 * Ethmabutol 400mg PO TID * Isoniazid 300mg PO daily * Prazinamide 1500mg PO daily * Pyridoxine 50mg PO daily * Rifampin 600mg PO daily * Abx: * Primaxin 250mg IVPB Q6H (active since 05/12/17) * Clindamycin 600mg IVPB Q8H (Discontinued) * Florastor 250mg PO BID * HIV 1+2 screening: negative, Hepatitis panel = negative * Blood cultures = no growth * LFTs currently stable, will monitor closely * Will monitor labs 3x week * Imaging: * Chest xray on 05/09: Right upper lobe infiltrate with central cavitary lesion ; also appears to be some patchy early infiltrate. * Abd/Pelvis CT on 05/09: No acute abdominal or pelvic abnormality; Constipation; No evidence of bowel obstruction; Multifocal right lower lobe pneumonia. * CT Chest on 05/09: large area of dense consolidation seen throughout a large portion of mid to posterior aspect of right upper lobe with associated prominent air bronchograms. additional prominent areas of scattered consolidative changes and scattered areas of tree-in-bud opacities seen in right middle and lower lobes. concern for acute infectious and inflammatory changes suggestive of multifocal pneumonia. 1cm focal area of nodular consolidation in lateral aspect of left lung apex (series 3, image 28) with scattered areas of consolidative changes seen within mid to inferior aspect of left upper lobe measuring 1cm on series 3, image 60 up to 2.1 cm on series 3 image 60. concerning for multifocal pneumonia. Left paratracheal lymph nodes 1.2 cm Status: Acute (2) Klebsiella pneumonia Assessment & Plan: * Sputum cx from admission grew klebsiella, sensitivites reviewed * Abx: Imipenem 250 mg IV Q6H, Clindamycin 600mg Q8H (discontinued) * Urine legionella, urine strep, mycoplasma = negative * ID consulted, Dr. Espinoza; f/u recommendations * Pulmonology consulted, Dr. Pham; f/u recommendations Status: Acute (3) Weight loss, unintentional Assessment & Plan: * Weight appears to have stabilized * Ensure Enlive TID for supplementation * Will Continue weights MWF * Lav Crewman referral placed Status: Acute (4) Lichen planus Assessment & Plan: * Patient states having 3 day history of anal itching, which is now improving * Continue Synalar 0.01% BID * If no improvement by Friday, will consider punch biopsy Status: Acute (5) Black stools Assessment & Plan: * Had one episode of black tarry stools, likely secondary to hemopytsis * GI was consulted, no intervention at this time Status: Resolved (6) RUQ abdominal pain Assessment & Plan: * Abdominal pain resolved * Abdominal US showed no acute findings * Hepatitis panel negative * CT abdomen/pelvis (05/09): no acute abdominal or pelvic abnormality, Constipation. No evidence of bowel obstruction. Multifocal right lower lobe pneumonia Status: Resolved (7) Hypokalemia Assessment & Plan: * Will continue to monitor and replete as needed Status: Resolved (8) Prophylactic measure Assessment & Plan: * GI ppx: Pepcid 40mg PO daily * SCDs (No DVT ppx indicated at this time) * Daily weight MWF DISPOSITION: Confirmed with ID Dr. Espinoza that we need 3 consecutive sputums negative for AFB PRIOR to discharging patient from respiratory isolation. [facility] contact is Marie Cardozo ([phone] Extension 2008, ): she is aware of the patient and has tested his friends who live with patient. She will need Rx for RIPE Therapy prior to discharging patient. She will then arrange for RIPE therapy to be given to patient. Will DW Dr. Sarahi Arteaga PGY-1 <Reyna Mcclain - Last Filed: 05/26/17 13:48> Objective - Vital Signs/Intake and Output Vital Signs (last 24 hours): Temp Pulse Resp BP Pulse Ox 99.0 F 91 H 20 115/66 97 05/26/17 08:30 05/26/17 08:30 05/26/17 08:30 05/26/17 08:30 05/26/17 08:30 Intake and Output: 05/26/17 05/26/17 06:59 18:59 Intake Total 500 Balance 500 - Medications Medications: Current Medications Acetaminophen (Tylenol 325mg Tab) 650 mg PO Q6 PRN PRN Reason: Headache Acetylcysteine (Acetylcysteine 20%) 4 ml INH RQD [facility] Last Admin: 05/26/17 07:05 Dose: 4 ml Albuterol Sulfate (Albuterol 0.083% Inhal Tanesha (2.5 Mg/3 Ml) Ud) 2.5 mg INH RQ24 [facility] Last Admin: 05/26/17 07:05 Dose: 2.5 mg Albuterol/Ipratropium (Duoneb 3 Mg/0.5 Mg (3 Ml) Ud) 3 ml INH RQ6 [facility] Last Admin: 05/26/17 13:27 Dose: 3 ml Ethambutol HCl (Myambutol) 400 mg PO TID [facility] Last Admin: 05/26/17 13:06 Dose: 400 mg Famotidine (Pepcid) 40 mg PO DAILY [facility] Last Admin: 05/26/17 09:34 Dose: 40 mg Fluocinolone Acetonide (Synalar 0.01% Cream) 0 gm TOP BID [facility] Last Admin: 05/26/17 09:34 Dose: 1 applic Imipenem/Cilastatin Sodium 250 (mg/ Sodium Chloride) 100 mls @ 100 mls/hr IV Q6 [facility] Last Admin: 05/26/17 11:09 Dose: 100 mls/hr Isoniazid (Niazid) 300 mg PO DAILY [facility] Last Admin: 05/26/17 09:34 Dose: 300 mg Pyrazinamide (Pyrazinamide) 1,500 mg PO DAILY [facility] Last Admin: 05/26/17 09:34 Dose: 1,500 mg Pyridoxine HCl (Vitamin B6 50 Mg Tab) 50 mg PO DAILY [facility] Last Admin: 05/26/17 09:34 Dose: 50 mg Rifampin (Rifampin Cap) 600 mg PO DAILY [facility] Last Admin: 05/26/17 09:33 Dose: 600 mg Saccharomyces Boulardii (Florastor) 250 mg PO BID [facility] Last Admin: 05/26/17 09:34 Dose: 250 mg - Labs Labs: 05/26/17 07:13 05/26/17 07:13 PT 15.3 SECONDS (9.7-12.2) H 05/09/17 13:53 INR 1.4 05/09/17 13:53 APTT 31 SECONDS (21-34) 05/09/17 13:53 Attending/Attestation - Attestation I have personally seen and examined this patient.: Yes I have fully participated in the care of the patient.: Yes I have reviewed all pertinent clinical information, including history, physical exam and plan: Yes Notes (Text): Seen and examined,no complain,no cough,no fever,no sob Discussed with the resident. I agree with the resident's documentation of the assessment and the plan 05/26/17 13:47
[2017-05-26] MEDS: Albuterol 0.083% Inhal Sol (2.5 mg/3 mL) UD INH SCH (07:05)
[2017-05-26] MEDS: Acetylcysteine 20% Inhal Soln (4ml) INH SCH (07:05)
[2017-05-26 07:32] LABS: BASO # 0.1 K/uL (0.0-0.2); EOS # 0.4 K/uL (0.0-0.7); EOS % 5.1 % (0.0-4.0); HEMOGLOBIN 13.4 g/dL (12.0-18.0); LYMPH # 0.7 K/uL (1.0-4.3); LYMPH % 8.7 % (20.0-40.0); MEAN CELL VOLUME 85.8 fL (80.0-94.0); MEAN CORPUSCULAR HEMOGLOBIN 29.7 pg (27.0-31.0); MEAN CORPUSCULAR HGB CONC 34.6 g/dL (33.0-37.0); MEAN PLATELET VOLUME 7.6 fL (7.2-11.7); MONO # 0.7 K/uL (0.0-0.8); NEUT % 76.2 % (50.0-75.0); PLATELET COUNT 310 K/uL (130-400); RBC 4.53 Mil/uL (4.40-5.90); WHITE BLOOD COUNT 7.9 K/uL (4.8-10.8)
[2017-05-26 08:16] LABS: ALBUMIN 3.3 g/dL (3.5-5.0); ALT/SGPT 66 U/L (21-72); AST/SGOT 39 U/L (17-59); BLOOD UREA NITROGEN 9 mg/dL (9-20); CALCIUM 8.2 mg/dl (8.6-10.4); GFR AFRICAN-AMERICAN > 60; GFR NON-AFRICAN AMERICAN > 60
[2017-05-26 08:31] VITALS: RESP 20
[2017-05-26] MEDS: Fluocinolone Acetonide 0.01% (15 gm) Cream TOP SCH ×2 (09:34→18:12)
[2017-05-26] MEDS: Saccharomyces Boulardi 250 mg Cap PO SCH ×2 (09:34→18:11)
[2017-05-26 09:36] LABS: BANDS 1 % (0-2); EOSINOPHIL 5 % (0-4); LYMPHOCYTE 8 % (20-40); MONOCYTE 7 % (0-10); NEUTROPHIL 79 % (50-75); PLATELET ESTIMATE NORMAL (NORMAL); TOTAL CELLS COUNTED 100
[2017-05-26 09:39] LABS: ANISOCYTOSIS SLIGHT; LARGE PLATELETS PRESENT; POLYCHROMIC SLIGHT
[2017-05-26 09:40] LABS: TOXIC GRANULATION PRESENT
[2017-05-27] MEDS: Albuterol-Ipratrop 3 mg / 0.5 (3 ml) UD INH SCH ×3 (01:42→13:36)
[2017-05-27] MEDS: Albuterol 0.083% Inhal Sol (2.5 mg/3 mL) UD INH SCH (07:10)
[2017-05-27] MEDS: Acetylcysteine 20% Inhal Soln (4ml) INH SCH (07:10)
[2017-05-27 07:57] LABS: BASO # 0.1 K/uL (0.0-0.2); BASO % 1.2 % (0.0-2.0); EOS # 0.4 K/uL (0.0-0.7); EOS % 5.5 % (0.0-4.0); HEMOGLOBIN 14.4 g/dL (12.0-18.0); LYMPH # 0.8 K/uL (1.0-4.3); LYMPH % 11.4 % (20.0-40.0); MEAN CELL VOLUME 86.7 fL (80.0-94.0); MEAN CORPUSCULAR HEMOGLOBIN 29.9 pg (27.0-31.0); MEAN CORPUSCULAR HGB CONC 34.4 g/dL (33.0-37.0); MEAN PLATELET VOLUME 7.6 fL (7.2-11.7); MONO # 0.6 K/uL (0.0-0.8); MONO % 9.4 % (0.0-10.0); NEUT % 72.5 % (50.0-75.0); RBC 4.81 Mil/uL (4.40-5.90); RED CELL DISTRIBUTION WIDTH 14.2 % (11.5-14.5); WHITE BLOOD COUNT 6.9 K/uL (4.8-10.8)
[2017-05-27 08:12] VITALS: BP 120/64; PULSE 81; TEMP 97.6; O2SAT 99
[2017-05-27 08:30] LABS: ALB/GLOB RATIO 0.9 (1.0-2.1); ALBUMIN 3.5 g/dL (3.5-5.0); ALT/SGPT 66 U/L (21-72); AST/SGOT 43 U/L (17-59); BLOOD UREA NITROGEN 12 mg/dL (9-20); CALCIUM 7.8 mg/dl (8.6-10.4); GFR AFRICAN-AMERICAN > 60; GFR NON-AFRICAN AMERICAN > 60
[2017-05-27] MEDS: Saccharomyces Boulardi 250 mg Cap PO SCH (10:44)
[2017-05-27] MEDS: Fluocinolone Acetonide 0.01% (15 gm) Cream TOP SCH (10:50)
--- NOTE | 2017-05-27 11:06 | CP.PCM.DIS ---
<Amy Hillman V - Last Filed: 05/27/17 16:16> Provider - Provider Date of Admission: 05/09/17 16:15 Attending physician: Amy Hillman DO Hospital Course - Lab Results Lab Results: Micro Results 05/24/17 16:33 Other: Please Indicate Mycobacterial Culture - Preliminary 05/25/17 11:01 Other: Please Indicate Mycobacterial Culture - Preliminary 05/10/17 08:28 Other: Please Indicate Mycobacterial Culture - Preliminary 05/11/17 06:30 Other: Please Indicate Mycobacterium Identification - Preliminary 05/23/17 09:59 Other: Please Indicate Mycobacterial Culture - Preliminary 05/12/17 11:04 Other: Please Indicate Mycobacterial Culture - Preliminary 05/09/17 Unknown Other: Please Indicate Mycobacterial Culture - Preliminary 05/20/17 14:40 Other: Please Indicate Mycobacterial Culture - Preliminary 05/09/17 16:00 Blood Blood Culture - Final NO GROWTH AFTER 5 DAYS 05/09/17 16:00 Blood Gram Stain - Final TEST NOT PERFORMED 05/09/17 16:30 Blood Blood Culture - Final NO GROWTH AFTER 5 DAYS 05/09/17 16:30 Blood Gram Stain - Final TEST NOT PERFORMED 05/09/17 16:00 Sputum Gram Stain - Final 05/09/17 16:00 Sputum Sputum Culture - Final Klebsiella Pneumoniae Ssp Pneu Most Recent Lab Values WBC 6.9 K/uL (4.8-10.8) 05/27/17 07:47 RBC 4.81 Mil/uL (4.40-5.90) 05/27/17 07:47 Hgb 14.4 g/dL (12.0-18.0) 05/27/17 07:47 Hct 41.7 % (35.0-51.0) 05/27/17 07:47 MCV 86.7 fL (80.0-94.0) 05/27/17 07:47 MCH 29.9 pg (27.0-31.0) 05/27/17 07:47 MCHC 34.4 g/dL (33.0-37.0) 05/27/17 07:47 RDW 14.2 % (11.5-14.5) 05/27/17 07:47 Plt Count 283 K/uL (130-400) 05/27/17 07:47 MPV 7.6 fL (7.2-11.7) 05/27/17 07:47 Neut % (Auto) 72.5 % (50.0-75.0) 05/27/17 07:47 Lymph % (Auto) 11.4 % (20.0-40.0) L 05/27/17 07:47 Mayes % (Auto) 9.4 % (0.0-10.0) 05/27/17 07:47 Eos % (Auto) 5.5 % (0.0-4.0) H 05/27/17 07:47 Baso % (Auto) 1.2 % (0.0-2.0) 05/27/17 07:47 Neut # 5.0 K/uL (1.8-7.0) 05/27/17 07:47 Lymph # 0.8 K/uL (1.0-4.3) L 05/27/17 07:47 Mayes # 0.6 K/uL (0.0-0.8) 05/27/17 07:47 Eos # 0.4 K/uL (0.0-0.7) 05/27/17 07:47 Baso # 0.1 K/uL (0.0-0.2) 05/27/17 07:47 Neutrophils % (Manual) 79 % (50-75) H 05/26/17 07:13 Band Neutrophils % 1 % (0-2) 05/26/17 07:13 Lymphocytes % (Manual) 8 % (20-40) L 05/26/17 07:13 Reactive Lymphs % 1 % (0-0) H 05/11/17 07:12 Monocytes % (Manual) 7 % (0-10) 05/26/17 07:13 Eosinophils % (Manual) 5 % (0-4) H 05/26/17 07:13 Toxic Granulation Present 05/26/17 07:13 Platelet Estimate Normal (NORMAL) 05/26/17 07:13 Large Platelets Present 05/26/17 07:13 RBC Morphology Normal 05/24/17 07:50 Polychromasia Slight 05/26/17 07:13 Anisocytosis (manual) Slight 05/26/17 07:13 PT 15.3 SECONDS (9.7-12.2) H 05/09/17 13:53 INR 1.4 05/09/17 13:53 APTT 31 SECONDS (21-34) 05/09/17 13:53 pO2 27 mm/Hg (30-55) L 05/09/17 14:16 VBG pH 7.38 (7.32-7.43) 05/09/17 14:16 VBG pCO2 47 mmHg (40-60) 05/09/17 14:16 VBG HCO3 25.2 mmol/L 05/09/17 14:16 VBG Total CO2 29.2 mmol/L (22-28) H 05/09/17 14:16 VBG O2 Sat (Calc) 61.1 % (40-65) 05/09/17 14:16 VBG Base Excess 2.0 mmol/L (0.0-2.0) 05/09/17 14:16 VBG Potassium 3.6 mmol/L (3.6-5.2) 05/09/17 14:16 Sodium 136.0 mmol/l (132-148) 05/09/17 14:16 Chloride 103.0 mmol/L (98-107) 05/09/17 14:16 Glucose 95 mg/dl (75-110) 05/09/17 14:16 Lactate 0.9 mmol/L (0.7-2.1) 05/09/17 14:16 Sodium 132 mmol/L (132-148) 05/27/17 07:47 Potassium 3.9 mmol/L (3.6-5.2) 05/27/17 07:47 Chloride 99 mmol/L (98-107) 05/27/17 07:47 Carbon Dioxide 25 mmol/L (22-30) 05/27/17 07:47 Anion Gap 12 (10-20) 05/27/17 07:47 BUN 12 mg/dL (9-20) 05/27/17 07:47 Creatinine 0.6 mg/dL (0.8-1.5) L 05/27/17 07:47 Est GFR ( Amer) > 60 05/27/17 07:47 Est GFR (Non-Af Amer) > 60 05/27/17 07:47 POC Glucose (mg/dL) 255 mg/dL (65-110) H 05/26/17 11:57 Random Glucose 90 mg/dL (75-110) 05/27/17 07:47 Calcium 7.8 mg/dl (8.6-10.4) L 05/27/17 07:47 Phosphorus 3.4 mg/dL (2.5-4.5) 05/15/17 06:12 Magnesium 1.8 mg/dL (1.6-2.3) 05/15/17 06:12 Total Bilirubin 0.4 mg/dL (0.2-1.3) 05/27/17 07:47 AST 43 U/L (17-59) 05/27/17 07:47 ALT 66 U/L (21-72) 05/27/17 07:47 Alkaline Phosphatase 106 U/L (38-126) 05/27/17 07:47 Total Protein 7.4 g/dL (6.3-8.3) 05/27/17 07:47 Albumin 3.5 g/dL (3.5-5.0) 05/27/17 07:47 Globulin 3.9 gm/dL (2.2-3.9) 05/27/17 07:47 Albumin/Globulin Ratio 0.9 (1.0-2.1) L 05/27/17 07:47 Lipase 25 U/L (23-300) 05/09/17 13:53 Free T4 1.44 ng/dL (0.78-2.19) 05/10/17 08:00 TSH 3rd Generation 0.33 mIU/L (0.46-4.68) L 05/10/17 08:00 Venous Blood Potassium 3.6 mmol/L (3.6-5.2) 05/09/17 14:16 Urine Color Yellow (YELLOW) 05/09/17 13:53 Urine Clarity Clear (Clear) 05/09/17 13:53 Urine pH 5.0 (5.0-8.0) 05/09/17 13:53 Ur Specific [place] 1.024 (1.003-1.030) 05/09/17 13:53 Urine Protein Negative mg/dL (NEGATIVE) 05/09/17 13:53 Urine Glucose (UA) Normal mg/dL (Normal) 05/09/17 13:53 Urine Ketones 1+ mg/dL (NEGATIVE) H 05/09/17 13:53 Urine Blood Negative (NEGATIVE) 05/09/17 13:53 Urine Nitrate Negative (NEGATIVE) 05/09/17 13:53 Urine Bilirubin Negative (NEGATIVE) 05/09/17 13:53 Urine Urobilinogen 4.0 mg/dL (0.2-1.0) 05/09/17 13:53 Ur Leukocyte Esterase Neg Noelle/uL (Negative) 05/09/17 13:53 Urine WBC (Auto) 2 /hpf (0-5) 05/09/17 13:53 Urine RBC (Auto) 2 /hpf (0-3) 05/09/17 13:53 Stool Occult Blood Positive (NEGATIVE) H 05/11/17 18:31 Hepatitis A IgM Ab Negative (NEGATIVE) 05/09/17 20:07 Hep Bs Antigen Negative (NEGATIVE) 05/09/17 20:07 Hep B Core IgM Ab Negative (NEGATIVE) 05/09/17 20:07 Hepatitis C Antibody Negative (NEGATIVE) 05/09/17 20:07 HIV 1&2 Antibody Screen Negative (NEGATIVE) 05/09/17 17:05 Ur L.pneumophila Ag Negative (NEGATIVE) 05/09/17 Unknown Myco Comp PCR Spec Srce Sputum 05/20/17 14:40 Myco Complex PCR Result Detected H 05/20/17 14:40 Mycoplasma pneumon IgM Negative (NEGATIVE) 05/09/17 20:33 Ur Strep pneumoniae Ag Not detected 05/09/17 Unknown TB Test (QFT) Nil 0.41 IU/mL 05/09/17 16:28 TB Test Mitogen - Nil 8.52 IU/mL 05/09/17 16:28 TB Test TB - Nil 3.97 IU/mL 05/09/17 16:28 TB Test (QFT) Positive (Negative) H 05/09/17 16:28 Discharge Plan - Discharge Medications Prescriptions: Ethambutol [Myambutol] 400 mg PO TID #90 tab Isoniazid [Niazid] 300 mg PO DAILY #30 tab Pyrazinamide 1,500 mg PO DAILY #30 tab Pyridoxine [Vitamin B6 50 mg Tab] 50 mg PO DAILY #30 tab rifAMPin [Rifampin Cap] 600 mg PO DAILY #30 cap - Follow Up Plan Condition: FAIR Disposition: HOME/ ROUTINE Instructions: Ethambutol (By mouth), Tuberculosis (GEN), Pneumococcal Vaccine for Adults (DC), Community Acquired Pneumonia (DC), Pneumonia (DC) Additional Instructions: 1. Patient was admitted and treated for Active TB and Klebsiella pneumonia 2. Patient to continue Ethambutol 400mg PO TID, Isoniazid 300mg PO daily, Pyrazinamide 1500mg PO daily, Rifampin 600mg PO daily, Pyridoxine 50mg PO daily 3. Patient to follow up with chest clinic upon discharge (May 28) 4. Please establish care with [facility] [phone] 5. Will need to monitor CBC, CMP weekly 6. If having any visual changes, fevers, chills, worsening shortness of breath, please return to ED Attending/Attestation - Attestation I have personally seen and examined this patient.: Yes I have fully participated in the care of the patient.: Yes I have reviewed all pertinent clinical information, including history, physical exam and plan: Yes Notes (Text): Patient seen, examined, and case discussed with chief medical officer. Patient seen at bedside this morning and he denies acute complaints. Patient reports anal itching has subsided. Patient denies any further episodes of hemoptysis. Patient has tolerated his breakfast is seen as bedside is completed. Patient has had consecutive 3 negative AFBs from May 23, May 24, and May 25. Patient was seen and evaluated by chest clinic today and is stable for discharge from their perspective. Case management has also spoken with the chest clinic today as well as spoke spoken with Lindsey Carolina the infectious disease nurse as well in terms of patient's discharge today. Resident has spoken with Dr. Espinoza, patient has complete sufficient antibiotic for Klebsiella pneumoniae and recommends to continue TB medications through the chest clinic Patient's follow-up appointment at the chest clinic will start tomorrow 2017 Patient has completed 7 days of medication prescribed for anal pruritus will discontinue on discharge Patient strongly recommended to establish care at the [facility] [phone] upon hospital discharge which is separate from the chest clinic. Patient will need a repeat CT chest following completion of TB medication. Discharge orders and discharge instructions discussed with the resident at bedside This is a summary of patient's hospitalization. Please refer to electronic medical record for further detail. Discharge Diagnoses: (1) Tuberculosis, Active (Stable) Cavitary lesion of lung secondary to TB Klebsiella Pneumonia (Resolved) Hemotypsis secondary to TB Bandemia (Resolved) Assessment & Plan: Hemoptysis with Right Upper Lobe cavitary lesion Patient on Airborne precautions * Infectious Disease: Dr Espinoza on board-->help appreciated * Pulmonary: Dr. Moran on board-->help appreciated * Thoracic surgery: Dr. Kate-->help appreciated * 1st line treatment for any lung abscess regardless of etiology is abx, 95% will resolve with this alone; this will be our recommendation. If abscess fails to resolve can consider CT-guided drainage with IR - but currently not indicated. Surgery is reserved for if the above mgmt fails, cannot rule out cancer, if abscess is >6cm and fails to resolve after 6 weeks, of it pt is exsanguinating from the hemoptysis. 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) * Positive Quantaferon * Mycobacterium 05/09: no acid fast bacilli seen--->mycobacterium tuberculosis complex identified * Mycobacterium 12/: no acid fast bacilli seen--->no species isolated in 2 weeks * Mycobacterium 12/: no acid fast bacilli seen--->no species isolated in 2 weeks * Mycobacterium 12/: Rare 1+ acid fast bacilli seen--->mycobacterium tuberculosis complex identified, DNA prove negative M. Avium * Mycobacterium 05/20: no acid fast bacilli seen * Mycobacterium 12/29: no acid fast bacilli seen * Mycobacterium 12/30: no acid fast bacilli seen * Mycobacterium 12/31: no acid fast bacilli seen * Active since 05/11/17 * Ethmabutol 400mg PO TID * Isoniazid 300mg PO daily * Prazinamide 1500mg PO daily * Pyridoxine 50mg PO daily * Rifampin 600mg PO daily * Patient to follow-up in the Chest Clinic, May 28 tomorrow and to continue medications and surveillance with the chest clinic * Abx: * Primaxin 250mg IVPB Q6H (active since 05/12-05/27/16) * Florastor 250mg PO BID * HIV 1+2 screening: negative, Hepatitis panel = negative * Blood cultures = no growth * Imaging: * Chest xray on 05/09: Right upper lobe infiltrate with central cavitary lesion ; also appears to be some patchy early infiltrate. * Abd/Pelvis CT on 05/09: No acute abdominal or pelvic abnormality; Constipation; No evidence of bowel obstruction; Multifocal right lower lobe pneumonia. * CT Chest on 05/09: large area of dense consolidation seen throughout a large portion of mid to posterior aspect of right upper lobe with associated prominent air bronchograms. additional prominent areas of scattered consolidative changes and scattered areas of tree-in-bud opacities seen in right middle and lower lobes. concern for acute infectious and inflammatory changes suggestive of multifocal pneumonia. 1cm focal area of nodular consolidation in lateral aspect of left lung apex (series 3, image 28) with scattered areas of consolidative changes seen within mid to inferior aspect of left upper lobe measuring 1cm on series 3, image 60 up to 2.1 cm on series 3 image 60. concerning for multifocal pneumonia. Left paratracheal lymph nodes 1.2 cm Status: Stable (2) Black stools (Resolved) Assessment & Plan: * Secondary to swallow hemotypsis secondary to active tuberculosis * Stool occult blood positive, likely secondary to hemotypsis * Not currently on anticoagulation or NSAIDs * GI consulted, Dr James; Discussed secondary to tuberculosis; no GI intervention at this time Status: Acute (3) RUQ abdominal pain-->resolved Assessment & Plan: * LFTs: normal * hepatitis panel negative * CT abdomen/pelvis (05/09): no acute abdominal or pelvic abnormality, Constipation. No evidence of bowel obstruction. Multifocal right lower lobe pneumonia * Abdominal US (05/12/17): evaluation of pancreas is obscured by gas in the GI tract however the remainder of examination is unremarkable Status: Acute (4) Hypokalemia-->resolved Assessment & Plan: * monitor and replete (5) Prophylactic measure Assessment & Plan: * GI ppx: Pepcid 40mg PO daily * SCDs (No DVT ppx indicated at this time) * Florastor 250mg PO BID * Weights MWF Status: Acute <Kristla Perea - Last Filed: 05/27/17 17:40> Provider - Provider Date of Admission: 05/09/17 16:15 Attending physician: Nik Ngo MD Consults: Infectious Disease: Alexis Thoracic Surgery: Lavinia Pulmonary: Ciechanowski GI: Jacob Time Spent in preparation of Discharge (in minutes): 35 Diagnosis - Discharge Diagnosis (1) Cavitary lesion of lung Status: Acute (2) Klebsiella pneumonia Status: Acute (3) Weight loss, unintentional Status: Acute (4) Lichen planus Status: Acute (5) Black stools Status: Resolved (6) RUQ abdominal pain Status: Resolved (7) Hypokalemia Status: Resolved (8) Prophylactic measure Status: Acute Hospital Course - Lab Results Lab Results: Micro Results 05/24/17 16:33 Other: Please Indicate Mycobacterial Culture - Preliminary 05/25/17 11:01 Other: Please Indicate Mycobacterial Culture - Preliminary 05/10/17 08:28 Other: Please Indicate Mycobacterial Culture - Preliminary 05/11/17 06:30 Other: Please Indicate Mycobacterium Identification - Preliminary 05/23/17 09:59 Other: Please Indicate Mycobacterial Culture - Preliminary 05/12/17 11:04 Other: Please Indicate Mycobacterial Culture - Preliminary 05/09/17 Unknown Other: Please Indicate Mycobacterial Culture - Preliminary 05/20/17 14:40 Other: Please Indicate Mycobacterial Culture - Preliminary 05/09/17 16:00 Blood Blood Culture - Final NO GROWTH AFTER 5 DAYS 05/09/17 16:00 Blood Gram Stain - Final TEST NOT PERFORMED 05/09/17 16:30 Blood Blood Culture - Final NO GROWTH AFTER 5 DAYS 05/09/17 16:30 Blood Gram Stain - Final TEST NOT PERFORMED 05/09/17 16:00 Sputum Gram Stain - Final 05/09/17 16:00 Sputum Sputum Culture - Final Klebsiella Pneumoniae Ssp Pneu Most Recent Lab Values WBC 6.9 K/uL (4.8-10.8) 05/27/17 07:47 RBC 4.81 Mil/uL (4.40-5.90) 05/27/17 07:47 Hgb 14.4 g/dL (12.0-18.0) 05/27/17 07:47 Hct 41.7 % (35.0-51.0) 05/27/17 07:47 MCV 86.7 fL (80.0-94.0) 05/27/17 07:47 MCH 29.9 pg (27.0-31.0) 05/27/17 07:47 MCHC 34.4 g/dL (33.0-37.0) 05/27/17 07:47 RDW 14.2 % (11.5-14.5) 05/27/17 07:47 Plt Count 283 K/uL (130-400) 05/27/17 07:47 MPV 7.6 fL (7.2-11.7) 05/27/17 07:47 Neut % (Auto) 72.5 % (50.0-75.0) 05/27/17 07:47 Lymph % (Auto) 11.4 % (20.0-40.0) L 05/27/17 07:47 Mayes % (Auto) 9.4 % (0.0-10.0) 05/27/17 07:47 Eos % (Auto) 5.5 % (0.0-4.0) H 05/27/17 07:47 Baso % (Auto) 1.2 % (0.0-2.0) 05/27/17 07:47 Neut # 5.0 K/uL (1.8-7.0) 05/27/17 07:47 Lymph # 0.8 K/uL (1.0-4.3) L 05/27/17 07:47 Mayes # 0.6 K/uL (0.0-0.8) 05/27/17 07:47 Eos # 0.4 K/uL (0.0-0.7) 05/27/17 07:47 Baso # 0.1 K/uL (0.0-0.2) 05/27/17 07:47 Neutrophils % (Manual) 79 % (50-75) H 05/26/17 07:13 Band Neutrophils % 1 % (0-2) 05/26/17 07:13 Lymphocytes % (Manual) 8 % (20-40) L 05/26/17 07:13 Reactive Lymphs % 1 % (0-0) H 05/11/17 07:12 Monocytes % (Manual) 7 % (0-10) 05/26/17 07:13 Eosinophils % (Manual) 5 % (0-4) H 05/26/17 07:13 Toxic Granulation Present 05/26/17 07:13 Platelet Estimate Normal (NORMAL) 05/26/17 07:13 Large Platelets Present 05/26/17 07:13 RBC Morphology Normal 05/24/17 07:50 Polychromasia Slight 05/26/17 07:13 Anisocytosis (manual) Slight 05/26/17 07:13 PT 15.3 SECONDS (9.7-12.2) H 05/09/17 13:53 INR 1.4 05/09/17 13:53 APTT 31 SECONDS (21-34) 05/09/17 13:53 pO2 27 mm/Hg (30-55) L 05/09/17 14:16 VBG pH 7.38 (7.32-7.43) 05/09/17 14:16 VBG pCO2 47 mmHg (40-60) 05/09/17 14:16 VBG HCO3 25.2 mmol/L 05/09/17 14:16 VBG Total CO2 29.2 mmol/L (22-28) H 05/09/17 14:16 VBG O2 Sat (Calc) 61.1 % (40-65) 05/09/17 14:16 VBG Base Excess 2.0 mmol/L (0.0-2.0) 05/09/17 14:16 VBG Potassium 3.6 mmol/L (3.6-5.2) 05/09/17 14:16 Sodium 136.0 mmol/l (132-148) 05/09/17 14:16 Chloride 103.0 mmol/L (98-107) 05/09/17 14:16 Glucose 95 mg/dl (75-110) 05/09/17 14:16 Lactate 0.9 mmol/L (0.7-2.1) 05/09/17 14:16 Sodium 132 mmol/L (132-148) 05/27/17 07:47 Potassium 3.9 mmol/L (3.6-5.2) 05/27/17 07:47 Chloride 99 mmol/L (98-107) 05/27/17 07:47 Carbon Dioxide 25 mmol/L (22-30) 05/27/17 07:47 Anion Gap 12 (10-20) 05/27/17 07:47 BUN 12 mg/dL (9-20) 05/27/17 07:47 Creatinine 0.6 mg/dL (0.8-1.5) L 05/27/17 07:47 Est GFR ( Amer) > 60 05/27/17 07:47 Est GFR (Non-Af Amer) > 60 05/27/17 07:47 POC Glucose (mg/dL) 255 mg/dL (65-110) H 05/26/17 11:57 Random Glucose 90 mg/dL (75-110) 05/27/17 07:47 Calcium 7.8 mg/dl (8.6-10.4) L 05/27/17 07:47 Phosphorus 3.4 mg/dL (2.5-4.5) 05/15/17 06:12 Magnesium 1.8 mg/dL (1.6-2.3) 05/15/17 06:12 Total Bilirubin 0.4 mg/dL (0.2-1.3) 05/27/17 07:47 AST 43 U/L (17-59) 05/27/17 07:47 ALT 66 U/L (21-72) 05/27/17 07:47 Alkaline Phosphatase 106 U/L (38-126) 05/27/17 07:47 Total Protein 7.4 g/dL (6.3-8.3) 05/27/17 07:47 Albumin 3.5 g/dL (3.5-5.0) 05/27/17 07:47 Globulin 3.9 gm/dL (2.2-3.9) 05/27/17 07:47 Albumin/Globulin Ratio 0.9 (1.0-2.1) L 05/27/17 07:47 Lipase 25 U/L (23-300) 05/09/17 13:53 Free T4 1.44 ng/dL (0.78-2.19) 05/10/17 08:00 TSH 3rd Generation 0.33 mIU/L (0.46-4.68) L 05/10/17 08:00 Venous Blood Potassium 3.6 mmol/L (3.6-5.2) 05/09/17 14:16 Urine Color Yellow (YELLOW) 05/09/17 13:53 Urine Clarity Clear (Clear) 05/09/17 13:53 Urine pH 5.0 (5.0-8.0) 05/09/17 13:53 Ur Specific [place] 1.024 (1.003-1.030) 05/09/17 13:53 Urine Protein Negative mg/dL (NEGATIVE) 05/09/17 13:53 Urine Glucose (UA) Normal mg/dL (Normal) 05/09/17 13:53 Urine Ketones 1+ mg/dL (NEGATIVE) H 05/09/17 13:53 Urine Blood Negative (NEGATIVE) 05/09/17 13:53 Urine Nitrate Negative (NEGATIVE) 05/09/17 13:53 Urine Bilirubin Negative (NEGATIVE) 05/09/17 13:53 Urine Urobilinogen 4.0 mg/dL (0.2-1.0) 05/09/17 13:53 Ur Leukocyte Esterase Neg Noelle/uL (Negative) 05/09/17 13:53 Urine WBC (Auto) 2 /hpf (0-5) 05/09/17 13:53 Urine RBC (Auto) 2 /hpf (0-3) 05/09/17 13:53 Stool Occult Blood Positive (NEGATIVE) H 05/11/17 18:31 Hepatitis A IgM Ab Negative (NEGATIVE) 05/09/17 20:07 Hep Bs Antigen Negative (NEGATIVE) 05/09/17 20:07 Hep B Core IgM Ab Negative (NEGATIVE) 05/09/17 20:07 Hepatitis C Antibody Negative (NEGATIVE) 05/09/17 20:07 HIV 1&2 Antibody Screen Negative (NEGATIVE) 05/09/17 17:05 Ur L.pneumophila Ag Negative (NEGATIVE) 05/09/17 Unknown Myco Comp PCR Spec Srce Sputum 05/20/17 14:40 Myco Complex PCR Result Detected H 05/20/17 14:40 Mycoplasma pneumon IgM Negative (NEGATIVE) 05/09/17 20:33 Ur Strep pneumoniae Ag Not detected 05/09/17 Unknown TB Test (QFT) Nil 0.41 IU/mL 05/09/17 16:28 TB Test Mitogen - Nil 8.52 IU/mL 05/09/17 16:28 TB Test TB - Nil 3.97 IU/mL 05/09/17 16:28 TB Test (QFT) Positive (Negative) H 05/09/17 16:28 - Hospital Course Hospital Course: HPI: Patient is a 22 year old male with no past medical history, who presents to the ED with complaints of right upper quadrant pain and vomiting. Patient reports having 4 episodes of blood tinged vomit and right upper quadrant pain worse with cough for one day. Patient also states he has had a cough and chest pain (worse with coughing/deep respiration) for the past 15 days for which he saw his PMD, Dr. Nova, 3 days ago. Patient was given an unspecified antibiotic and pain killer, which did not help his symptoms. Patient reports he has noticed about 10lbs weight loss and right mid back pain over the last 15 days. Patient denies recent travel and sick contacts. Patient states his roommates have not recently been sick, had similar symptoms or recently traveled. Patient currently admits to fevers, palpitations, and back pain. Patient was admitted to Med/Surg and placed on airborne precautions. PPD was placed and was positive at 25mm, quantiferon gold also returned positive. Patient was started on RIPE therapy on 05/11/17. AFB sputum from 05/12 grew acid fast bacilli. Infectious Disease was consulted and on the case. CT chest showed large area of dense consolidation in RUL with associated air bronchograms. Also noted was large areas of central cavitation measuring up with 2.8 and 1.5 cm (see full report). Patient was also found to have sputum culture positive for Klebsiella for which he was started on IV Imipenem. Thoracic surgery was consulted for lung abscess who recommended conservative management at this time. For RUQ pain, abdominal US was negative for acute findings. RUQ pain did resolve. During hospital stay, patient had an episode of black tarry stool, stool occult was postive, hemoglobin was stable. GI was consulted. No further work up was recommended as the black stool was likely due to hemoptysis. For anal itching, patient was given Synalar 0.01% with relief in symptoms. Labs were monitored. Electrolytes were repleted as needed. Three Sputum samples were sent for PCR. The sputum from 05/20 was +mycobacterium. Upon discussion with Chest Clinic and Infectious disease, patient would be ok for discharge once he had three consecutive negative AFB. Sputum from 05/23, 05/24, and 05/25 were negative for AFB. Both Chest clinic and infectious disease were notified and cleared the patient for discharge. Infectious disease nurse also notified. On day of discharge, patient was doing well. Ambulating and tolerating diet. Hemoptysis had resolved. Denies any anal itching, headaches, dizziness, visual changes, sob, abdominal pain, urinary symptoms, changes in bowel habits. Prescriptions were given for RIPE therapy were given. Patient to follow up and establish care with [facility] [phone]. Also to follow up with Chest clinic closely. Patient will need repeat CT Chest upon completing RIPE therapy. All questions and concerns were addressed. Discharge Medications: Ethambutol 400mg PO TID Isoniazid 300mg PO daily Pyrazinamine 1,500mg PO daily Pyridoxine 50mg PO daily Rifampin 600mg PO daily Discharge Exam - Head Exam Head Exam: ATRAUMATIC, NORMAL INSPECTION, NORMOCEPHALIC - Eye Exam Eye Exam: EOMI, Normal appearance Pupil Exam: NORMAL ACCOMODATION - ENT Exam ENT Exam: Mucous Membranes Moist - Neck Exam Neck exam: Full Rom - Respiratory Exam Respiratory Exam: Clear to PA & Lateral, NORMAL BREATHING PATTERN, UNREMARKABLE. absent: Decreased Breath Sounds, Rhonchi, Wheezes, Respiratory Distress - Cardiovascular Exam Cardiovascular Exam: REGULAR RHYTHM, +S1, +S2 - GI/Abdominal Exam GI & Abdominal Exam: Normal Bowel Sounds, Soft. absent: Distended, Guarding, Rebound, Rigid, Tenderness, Unremarkable - Rectal Exam Rectal Exam: Deferred - Extremities Exam Extremities exam: full ROM, normal capillary refill, normal inspection, pedal pulses present - Back Exam Back exam: NORMAL INSPECTION - Neurological Exam Neurological exam: Alert, CN II-XII Intact, Normal Gait, Oriented x3 - Psychiatric Exam Psychiatric exam: Normal Affect, Normal Mood - Skin Skin Exam: Dry, Normal Color, Warm
== END 2017-05-27 17:15 | disposition home or self-care (01) | DRG 800 ==
LOC: C.ER 12:29 → C.9E 16:15 → C.5S 16:43 → C.6T 05-24 22:35
PROVIDERS: ADMIT Hospitalist; ATTEND Hospitalist
DX: A15.0 Tuberculosis of lung (principal); E87.6 Hypokalemia; J15.0 Pneumonia due to Klebsiella pneumoniae; J11.08 Influenza due to unidentified influenza virus with specified pneumonia; J69.0 Pneumonitis due to inhalation of food and vomit; J85.1 Abscess of lung with pneumonia; R04.2 Hemoptysis; K59.00 Constipation, unspecified; L43.9 Lichen planus, unspecified; R63.3 Feeding difficulties; Z78.9 Other specified health status

== ENCOUNTER 2018-08-10 09:22 | Emergency (ER) | payer MEDICAID, OTHER ==
[2018-08-10 09:40] VITALS: BMI 23.3
[2018-08-10 09:41] VITALS: RESP 18
[2018-08-10 10:24] LABS: BASO % 0.6 % (0.0-2.0); EOS # 0.2 K/uL (0.0-0.7); EOS % 3.1 % (0.0-4.0); HEMOGLOBIN 16.3 g/dL (12.0-18.0); LYMPH # 0.4 K/uL (1.0-4.3); LYMPH % 7.3 % (20.0-40.0); MEAN CORPUSCULAR HGB CONC 34.3 g/dL (33.0-37.0); MEAN PLATELET VOLUME 8.6 fL (7.2-11.7); MONO # 0.6 K/uL (0.0-0.8); MONO % 10.7 % (0.0-10.0); NEUT # 4.5 K/uL (1.8-7.0); NEUT % 78.3 % (50.0-75.0); NRBC % 0.1 % (0.0-2.0); PLATELET COUNT 201 K/uL (130-400); RBC 5.26 Mil/uL (4.40-5.90); RED CELL DISTRIBUTION WIDTH 14.1 % (11.5-14.5); WHITE BLOOD COUNT 5.8 K/uL (4.8-10.8)
[2018-08-10 10:27] LABS: MEAN CELL VOLUME 90.3 fL (80.0-94.0)
[2018-08-10 10:35] LABS: URINE BILIRUBIN NEGATIVE (NEGATIVE); URINE BLOOD NEGATIVE (NEGATIVE); URINE CLARITY Clear (Clear); URINE COLOR Yellow (YELLOW); URINE GLUCOSE (UA) NORMAL (Normal); URINE LEUKOCYTE ESTERASE NEG Leu/uL (Negative); URINE PROTEIN NEGATIVE (NEGATIVE); URINE UROBILINOGEN NORMAL mg/dL (0.2-1.0)
[2018-08-10 10:37] LABS: ALB/GLOB RATIO 1.5 (1.0-2.1); ALBUMIN 4.2 g/dL (3.5-5.0); ALT/SGPT 25 U/L (21-72); AST/SGOT 26 U/L (17-59); BLOOD UREA NITROGEN 8 mg/dL (9-20); CALCIUM 9.1 mg/dl (8.6-10.4); GFR NON-AFRICAN AMERICAN > 60; LIPASE 26 U/L (23-300)
--- NOTE | 2018-08-10 10:39 | C.PDOC ---
History Of Present Illness 23 year old male presents to the emergency department with complaints of LLQ abdominal pain for the last 5 days. Patient denies nausea, vomiting, and diarrhea. Patient denies fever and urinary symptoms. Time Seen by Provider: 08/10/18 10:13 Chief Complaint (Nursing): Abdominal Pain History Per: Patient History/Exam Limitations: no limitations Onset/Duration Of Symptoms: Days (5) Current Symptoms Are (Timing): Still Present Location Of Pain/Discomfort: LLQ Quality Of Discomfort: "Pain" Associated Symptoms: denies: Fever, Nausea, Vomiting, Diarrhea Past Medical History Reviewed: Historical Data, Nursing Documentation, Vital Signs Vital Signs: Last Vital Signs Temp 99.2 F 08/10/18 09:40 Pulse 97 H 08/10/18 09:40 Resp 18 08/10/18 09:40 BP 131/79 08/10/18 09:40 Pulse Ox 98 08/10/18 09:40 - Medical History PMH: No Chronic Diseases Denies: Chronic Kidney Disease Surgical History: No Surg Hx Family History: States: No Known Family Hx - Social History Hx Alcohol Use: No Hx Substance Use: No - Immunization History Hx Tetanus Toxoid Vaccination: No Hx Influenza Vaccination: No Hx Pneumococcal Vaccination: No Review Of Systems Except As Marked, All Systems Reviewed And Found Negative. Constitutional: Negative for: Fever Cardiovascular: Negative for: Chest Pain Respiratory: Negative for: Cough, Shortness of Breath Gastrointestinal: Positive for: Abdominal Pain. Negative for: Nausea, Vomiting, Diarrhea Genitourinary: Negative for: Dysuria, Frequency, Incontinence Physical Exam - Physical Exam Appears: Non-toxic, No Acute Distress Skin: Normal Color, Warm, Dry Head: Atraumatic, Normacephalic Eye(s): bilateral: Normal Inspection, PERRL, EOMI Nose: Normal Oral Mucosa: Moist Neck: Normal, Supple Chest: Symmetrical, No Tenderness Cardiovascular: Rhythm Regular, No Murmur Respiratory: Normal Breath Sounds Gastrointestinal/Abdominal: Soft, Tenderness (to LLQ), No Guarding, No Rebound Extremity: Normal ROM Neurological/Psych: Oriented x3, Normal Speech, Normal Cognition ED Course And Treatment - Laboratory Results Result Diagrams: 08/10/18 10:19 08/10/18 10:19 O2 Sat by Pulse Oximetry: 98 (RA) Pulse Ox Interpretation: Normal - CT Scan/US CT abdomen Other Rad Studies (CT/US): Read By Radiologist, Radiology Report Reviewed CT/US Interpretation: Accession No. : [id number]. Patient Name / ID : CATE DAVIS / [id number]. Exam Date : 08/10/2018 12:04:14 ( Approved ). Study Comment : Sex / Age : M / 23Y. Creator : Elida Douglass MD. Dictator : Elida Douglass MD. Administrative Director : Package Dyeing Machine Operator : Elida Douglass MD. Approver2 : Report Date : 08/10/2018 13:10:15. My Comment : . PROCEDURE: CT Abdomen and Pelvis with oral and IV contrast. HISTORY: LLQ pain. COMPARISON: CT abdomen and pelvis with contrast performed 05/09/17. TECHNIQUE: Contiguous axial images of the abdomen and pelvis. Oral and IV contrast was administered. Coronal and Sagittal reformats generated and reviewed. Contrast dose: 100 mL Visipaque 320 IV. Radiation dose: Total exam DLP = 368.34 mGy-cm. This CT exam was performed using one or more of the following dose reduction techniques: Automated exposure control, adjustment of the mA and/or kV according to patient size, and/or use of iterative reconstruction technique. FINDINGS: LOWER THORAX: No visible consolidation, pleural effusion, or pneumothorax. LIVER: Unremarkable. GALLBLADDER AND BILE DUCTS: Contracted gallbladder appears otherwise unremarkable. PANCREAS: Unremarkable. SPLEEN: Unremarkable. ADRENALS: Unremarkable. KIDNEYS AND URETERS: The kidneys enhance symmetrically. No hydronephrosis or obstructing renal calculus. BLADDER: The urinary bladder appears unremarkable. REPRODUCTIVE: Unremarkable. APPENDIX: No secondary signs of acute appendicitis. BOWEL: The stomach is nondistended. The bowel loops appear within normal limits of caliber without evidence of intestinal obstruction. PERITONEUM: No significant free fluid. No definite free air. LYMPH NODES: No bulky lymphadenopathy identified. VASCULATURE: No aortic aneurysm. No atherosclerotic calcification or mural plaque present. BONES: No acute osseous abnormality is detected. OTHER FINDINGS: None. IMPRESSION: No acute findings. Progress Note: Plan: CMP. Lipase. CBC. Urinalysis. CT abdomen/pelvis. On re-evaluation, patient feels better and is stable to be d/c home with PMD follow up. Disposition - Disposition Referrals: [facility] [Outside] Disposition: HOME/ ROUTINE Disposition Time: 15:36 Condition: STABLE Additional Instructions: Follow up with PMD / Clinic within 1-2 days. Return to ED if feel worse. Prescriptions: Dicyclomine [Bentyl] 20 mg PO TID #30 tab Instructions: Acute Abdomen (Belly Pain), Adult (DC) Forms: [employer] (Polish) Print Language: GERMAN - Clinical Impression Clinical Impression: Abdominal pain - PA / COORDINATOR OF GENETIC SERVICES / Resident Statement MD/DO has reviewed & agrees with the documentation as recorded. - Scribe Statement The provider has reviewed the documentation as recorded by the Scribe (Hossein Glover) All medical record entries made by the Scribe were at my direction and personally dictated by me. I have reviewed the chart and agree that the record accurately reflects my personal performance of the history, physical exam, medical decision making, and the department course for this patient. I have also personally directed, reviewed, and agree with the discharge instructions and disposition.
[2018-08-10] MEDS ORDERED: Sodium Chloride 0.9% 1,000 ML IV STA (10:53)
[2018-08-10] MEDS ORDERED: Iohexol 240 (50 ml) PO ONE (11:01)
[2018-08-10 11:16] LABS: BANDS 7 % (0-2); EOSINOPHIL 2 % (0-4); LYMPHOCYTE 8 % (20-40); MONOCYTE 9 % (0-10); NEUTROPHIL 73 % (50-75); PLATELET ESTIMATE NORMAL (NORMAL); REACTIVE LYMPHOCYTES 1 % (0-0); TOTAL CELLS COUNTED 100
[2018-08-10] MEDS ORDERED: Iohexol 240 (50 ml) ONE (11:16)
[2018-08-10] MEDS ORDERED: Sodium Chloride 0.9% 1,000 ML ONE (11:16)
[2018-08-10] MEDS ORDERED: Iodixanol 320 MG/ML 100 ML BOTTLE IV ONE (11:52)
--- NOTE | 2018-08-10 13:14 | CT ---
PROCEDURE: CT Abdomen and Pelvis with oral and IV contrast. HISTORY: LLQ pain COMPARISON: CT abdomen and pelvis with contrast performed 05/09/17 TECHNIQUE: Contiguous axial images of the abdomen and pelvis. Oral and IV contrast was administered. Coronal and Sagittal reformats generated and reviewed. Contrast dose: 100 mL Visipaque 320 IV Radiation dose: Total exam DLP = 368.34 mGy-cm. This CT exam was performed using one or more of the following dose reduction techniques: Automated exposure control, adjustment of the mA and/or kV according to patient size, and/or use of iterative reconstruction technique. FINDINGS: LOWER THORAX: No visible consolidation, pleural effusion, or pneumothorax. LIVER: Unremarkable. GALLBLADDER AND BILE DUCTS: Contracted gallbladder appears otherwise unremarkable. PANCREAS: Unremarkable. SPLEEN: Unremarkable. ADRENALS: Unremarkable. KIDNEYS AND URETERS: The kidneys enhance symmetrically. No hydronephrosis or obstructing renal calculus. BLADDER: The urinary bladder appears unremarkable. REPRODUCTIVE: Unremarkable. APPENDIX: No secondary signs of acute appendicitis. BOWEL: The stomach is nondistended. The bowel loops appear within normal limits of caliber without evidence of intestinal obstruction. PERITONEUM: No significant free fluid. No definite free air. LYMPH NODES: No bulky lymphadenopathy identified. VASCULATURE: No aortic aneurysm. No atherosclerotic calcification or mural plaque present. BONES: No acute osseous abnormality is detected. OTHER FINDINGS: None. IMPRESSION: No acute findings.
--- NOTE | 2018-08-10 13:44 | RAD ---
Chest x-ray two views HISTORY: Chest pain. COMPARISON: 05/09/2017 Findings: Patchy increased markings in the right upper to mid lung zone. Heart size within normal limits. Impression: Patchy increased markings in the right upper to mid lung zone.
[2018-08-10 14:45] VITALS: BP 112/72; PULSE 68; TEMP 98.1
[2018-08-10 15:38] VITALS: O2SAT 98
== END 2018-08-10 15:52 | disposition home or self-care (01) ==
LOC: C.ER 09:22
DX: R10.32 Left lower quadrant pain (principal)
CPT/HCPCS: 71046; 74177; 80053; 81001; 83690; 85025; 96360; 99284; J7030; Q9966; Q9967

== ENCOUNTER 2018-10-12 13:51 | Emergency (ER) | payer OTHER ==
[2018-10-12 14:05] VITALS: TEMP 98.9
[2018-10-12] MEDS ORDERED: Tetanus/Diphtheria Toxoids 0.5 ml Syringe IM ONE ×2 (14:34→14:47)
--- NOTE | 2018-10-12 15:40 | RAD ---
PROCEDURE: Left Hand Radiographs. Three views. HISTORY: blunt trauma, hand injury, fingers 2-4 COMPARISON: None available. FINDINGS: Suboptimal lateral view due to patient condition. BONES: No acute displaced fracture. JOINTS: No dislocation. SOFT TISSUES: Unremarkable. No evidence of radiopaque foreign body. OTHER FINDINGS: None. IMPRESSION: Suboptimal lateral view due to patient condition. No acute displaced fracture, dislocation, or significant joint effusion identified. If symptoms persist, or if there is continued clinical concern, x-ray follow-up in 7-10 days should be considered.
--- NOTE | 2018-10-12 16:00 | C.PDOC ---
History Of Present Illness 23 year old male presents to the emergency department with complaints of left hand pain and swelling for the last few hours. Patient states that his left hand was caught and entangled in a construction machine cable sustaining laceration to left hand. Patient states that he is not up to date with tetanus. Denies weakness and numbness. Time Seen by Provider: 10/12/18 14:07 Chief Complaint (Nursing): Finger,Hand,&Wrist History Per: Patient History/Exam Limitations: no limitations Onset/Duration Of Symptoms: Hrs Current Symptoms Are (Timing): Still Present Quality: "Pain", Other (swelling) Past Medical History Reviewed: Historical Data, Nursing Documentation, Vital Signs Vital Signs: Last Vital Signs Temp 98.9 F 10/12/18 14:01 Pulse 80 10/12/18 14:01 Resp 18 10/12/18 14:01 BP 124/69 10/12/18 14:01 Pulse Ox 98 10/12/18 14:01 Primary Care Provider: FAMILY PROVIDER,NO - Medical History PMH: No Chronic Diseases Surgical History: No Surg Hx Family History: States: No Known Family Hx - Social History Hx Alcohol Use: No Hx Substance Use: No - Immunization History Hx Tetanus Toxoid Vaccination: No Hx Influenza Vaccination: No Hx Pneumococcal Vaccination: No Review Of Systems Except As Marked, All Systems Reviewed And Found Negative. Constitutional: Negative for: Fever, Chills Cardiovascular: Negative for: Chest Pain, Palpitations Respiratory: Negative for: Shortness of Breath Musculoskeletal: Positive for: Hand Pain (left) Neurological: Negative for: Weakness, Numbness Physical Exam - Physical Exam Appears: Non-toxic, No Acute Distress Skin: Normal Color, Warm, Dry Head: Atraumatic, Normacephalic Eye(s): bilateral: Normal Inspection, PERRL Neck: Normal, Supple Chest: Symmetrical Extremity: No Normal ROM (Decreased ROM to the left 2nd, 3rd, and 4th fingers due to pain. ), Tenderness (tenderness to the left hand), Capillary Refill (<2 seconds), No Deformity, Swelling (swelling to th left hand), Other (superficial abrasions to the dorsal aspct of the left 2nd, 3rd, and 4th digits. No active bleeding. No visible tendon injury or laceration. ) Neurological/Psych: Oriented x3, Normal Motor, Normal Sensation Gait: Steady ED Course And Treatment O2 Sat by Pulse Oximetry: 98 (RA) Pulse Ox Interpretation: Normal - Other Rad XR Left Hand X-Ray: Interpreted by Me, Viewed By Me Interpretation: Negative for fractures or dislocations. Progress Note: Plan: Motrin 600mg PO. Tetanus Vaccination. XR Left Hand. Hand cleaned with Betadine and saline solution, dressed. Patient given wound care instructions and told to follow-up. Disposition Counseled Patient/Family Regarding: Diagnosis, Need For Followup, Rx Given - Disposition Referrals: [facility] [Outside] Disposition: HOME/ ROUTINE Disposition Time: 15:57 Condition: STABLE Additional Instructions: Please follow up with PMD Take medications as directed Return to ER if worse Prescriptions: Bacitracin Ointment [Bacitracin] 30 gm TOP BID #1 tube Ibuprofen [Motrin] 600 mg PO Q6H #30 tab Instructions: Contusion (DC), Skin Abrasions (DC) Forms: [employer] (Romansh), Work Excuse Print Language: AMHARIC - Clinical Impression Clinical Impression: Hand abrasion, Contusion of left hand - PA / FINANCE TEACHER / Resident Statement MD/DO has reviewed & agrees with the documentation as recorded. - Scribe Statement The provider has reviewed the documentation as recorded by the Scribe (Hossein Glover) All medical record entries made by the Scribe were at my direction and personally dictated by me. I have reviewed the chart and agree that the record accurately reflects my personal performance of the history, physical exam, medical decision making, and the department course for this patient. I have also personally directed, reviewed, and agree with the discharge instructions and disposition.
[2018-10-12] MEDS ORDERED: Bacitracin 500 Units/gm Oint Foilpak UD ONE (16:15)
[2018-10-12 16:25] VITALS: BP 112/74; PULSE 61; RESP 20
[2018-10-12 17:03] VITALS: O2SAT 98
== END 2018-10-12 16:25 | disposition home or self-care (01) ==
LOC: C.ER 13:51 → MERGE 13:51 → C.ER 16:25
DX: S60.222A Contusion of left hand, initial encounter (principal); S60.512A Abrasion of left hand, initial encounter; W23.0XXA Caught, crushed, jammed, or pinched between moving objects, initial encounter